=== PATIENT | female | born 1975 | race Caucasian/White ===

== ENCOUNTER → 2016-06-03 | Outpatient (CLI) | payer OTHER | LOC: M LAB 14:52 | PROVIDERS: ATTEND Obstetrics & Gynecology | DX: Z11.59 Encounter for screening for other viral diseases (principal) ==

== ENCOUNTER → 2016-06-03 | Outpatient (CLI) | payer OTHER ==
[2016-06-03 16:06] LABS: BASO % 0.3 % (0.0-1.0); EOS # 0.1 K/mm3 (0.0-0.50); EOS % 1.6 % (0.0-3.0); LARGE UNSTAINED CELL # 0.1 K/mm3 (0.0-0.4); LARGE UNSTAINED CELL % 1.5 % (0.0-4.0); LYMPH # 2.6 K/mm3 (1.5-4.5); MEAN CORPUSCULAR HEMOGLOBIN 29.9 pg (27.0-33.0); MEAN CORPUSCULAR HGB CONC 34.2 g/dl (32.0-36.5); MEAN CORPUSCULAR VOLUME 87.3 fl (80.0-96.0); MONO # 0.5 K/mm3 (0.0-0.8); MONO % 6.1 % (0.0-5.0); NEUTROPHILS % 60.5 % (36.0-66.0); PLATELET COUNT, AUTOMATED 152 k/mm3 (150-450); RED CELL DISTRIBUTION WIDTH 12.5 % (11.5-14.5); WHITE BLOOD COUNT 8.2 K/mm3 (4.0-10.0)
[2016-06-04 10:17] LABS: HBsAg Prenatal NEGATIVE (NEGATIVE)
== END ==
LOC: M LAB 15:09
PROVIDERS: ATTEND Specialist
DX: Z36 Encounter for antenatal screening of mother (principal)

== ENCOUNTER → 2016-06-30 | Outpatient (CLI) | payer OTHER | LOC: M SMT 12:19 | PROVIDERS: ATTEND Specialist | DX: Z36 Encounter for antenatal screening of mother (principal); Z13.79 Encounter for other screening for genetic and chromosomal anomalies ==

== ENCOUNTER → 2016-08-25 | Outpatient (CLI) | payer OTHER ==
[~2016-08-25] MED LIST: BIOT300T PO; FOLI800C PO; LAMI300T PO; PRENTAB9 PO
--- NOTE | 2016-08-25 16:56 | REP ---
Clinical: Anatomical evaluation. Comparison: None . Findings: Examination demonstrates a single live intrauterine in breech presentation. motion is identified by technologist. Placenta is noted posterior fundally and grade zero without evidence for placenta previa or abruption. Amniotic fluid volume is normal. Cervix measures 5.5 cm in length and appears closed. No evidence for nuchal cord. Gestational age by LMP 19 weeks 3 days with ALAN 01/16/2017 . Gestational age by current measurements 20 weeks 0 days with ALAN 01/12/2017 . FHR equals 131 beats per minute. BPD 4.6 cm 19 weeks 5 days HC 16.6 cm 19 weeks 2 days AC 15.1 cm 20 weeks 2 days FL 3.3 cm 20 weeks 2 days HL 3.1 cm 20 weeks 2 days HC/AC ratio 1.10 Estimated weight 339 grams ( 77th percentile). Anatomical assessment demonstrates normal structures including cranium, choroid plexus, cavum, cerebellum/posterior fossa, facial features, diaphragm, stomach, cord insertion/three-vessel cord, kidneys/bladder, spine, and extremities. Impression: Single live intrauterine in breech presentation demonstrating appropriate interval growth. Limited evaluation of the lungs and heart/ventricular outflow tracts may warrant reevaluation and follow-up. Remainder of the assessment is normal. Signed by Ruel Rothman MD 08/25/2016 04:47 P
== END ==
LOC: M RAD 15:53
PROVIDERS: ATTEND Specialist
DX: Z36 Encounter for antenatal screening of mother (principal); Z3A.20 20 weeks gestation of pregnancy

== ENCOUNTER → 2016-09-22 | Outpatient (CLI) | payer OTHER ==
--- NOTE | 2016-09-23 08:01 | REP ---
Clinical: Anatomical re-evaluation. Comparison: 08/25/2016 . Findings: Examination demonstrates a single live intrauterine in cephalic presentation. motion is identified by technologist. Placenta is noted posteriorly and grade zero without evidence for placenta previa or abruption. Amniotic fluid volume is normal. Cervix measures 6.6 cm in length and appears closed. No evidence for nuchal cord. Gestational age by LMP 23 weeks 3 day with ALAN date 01/16/2017 . Gestational age by current measurements 24 weeks 0 days with ALAN 01/12/2017 . FHR equals 146 beats per minute. Estimated weight 665 grams ( 67th percentile). Anatomical assessment demonstrates normal structures including cranium, choroid plexus, cavum, cerebellum/posterior fossa, facial features, lungs, four-chamber heart/ventricular outflow tracts, diaphragm, stomach, cord insertion/three-vessel cord, kidneys/bladder, spine, and extremities. Impression: Single live intrauterine in cephalic presentation demonstrating appropriate interval growth. Anatomical assessment is complete and normal. No gross abnormalities are identified. Incidental note is made of prominent chordae tendineae in the right cardiac ventricle. Signed by Ruel Rothman MD 09/23/2016 07:53 A
== END ==
LOC: M RAD 16:47
PROVIDERS: ATTEND Obstetrics & Gynecology
DX: Z36 Encounter for antenatal screening of mother (principal); Z3A.24 24 weeks gestation of pregnancy

== ENCOUNTER → 2016-10-22 | Outpatient (CLI) | payer OTHER ==
[2016-10-22 15:51] LABS: BASO % 0.2 % (0.0-1.0); EOS # 0.1 K/mm3 (0.0-0.50); EOS % 1.2 % (0.0-3.0); LARGE UNSTAINED CELL # 0.1 K/mm3 (0.0-0.4); LARGE UNSTAINED CELL % 1.4 % (0.0-4.0); LYMPH # 2.6 K/mm3 (1.5-4.5); LYMPH % 26.6 % (24.0-44.0); MEAN CORPUSCULAR HEMOGLOBIN 31.4 pg (27.0-33.0); MEAN CORPUSCULAR HGB CONC 34.7 g/dl (32.0-36.5); MEAN CORPUSCULAR VOLUME 90.4 fl (80.0-96.0); MONO # 0.5 K/mm3 (0.0-0.8); MONO % 5.3 % (0.0-5.0); NEUTROPHILS # 6.2 K/mm3 (1.8-7.7); NEUTROPHILS % 65.4 % (36.0-66.0); PLATELET COUNT, AUTOMATED 148 k/mm3 (150-450); RED CELL DISTRIBUTION WIDTH 13.7 % (11.5-14.5); WHITE BLOOD COUNT 9.4 K/mm3 (4.0-10.0)
== END ==
LOC: M WUC 12:20
PROVIDERS: ATTEND Specialist
DX: Z34.82 Encounter for supervision of other normal pregnancy, second trimester (principal)

== ENCOUNTER → 2016-11-16 | Outpatient (CLI) | payer OTHER ==
--- NOTE | 2016-11-17 06:24 | REP ---
Clinical: Growth evaluation. Comparison: 09/22/2016 . Findings: Examination demonstrates a single live intrauterine in cephalic presentation. motion is identified by technologist. Placenta is noted posteriorly and grade zero without evidence for placenta previa or abruption. Amniotic fluid volume is normal. Cervix measures 4.5 cm in length and appears closed. Nuchal cord appreciated. Gestational age by LMP 31 weeks 2-day with ALAN is 01/16/2017 . Gestational age by current measurements 31 weeks 5-day with ALAN 01/13/2017 . FHR equals 143 beats per minute. BPD 8.0 cm 31 weeks 6 days HC 28.3 cm 31 weeks 0 days AC 28.5 cm 32 weeks 4 days FL 6.1 cm 31 weeks 5 days HL 5.4 cm 31 weeks 3 days HC/AC ratio 0.99 Estimated weight 1903 grams ( 59th percentile). Amniotic fluid index equals 17.1 cm. Umbilical cord SD ratio equals 2.16 (2.50 - 3.50). Impression: 1. Single live intrauterine in cephalic presentation demonstrating appropriate interval growth. 2. Nuchal cord noted. 3. Umbilical cord SD ratio minimally decreased. Signed by Ruel Rothman MD 11/17/2016 06:16 A
== END ==
LOC: M RAD 16:14
PROVIDERS: ATTEND Specialist
DX: Z36 Encounter for antenatal screening of mother (principal)

== ENCOUNTER 2016-11-27 14:38 | Outpatient (CLI) | payer OTHER ==
[~2016-11-27] VITALS: Ht 160 cm; Wt 77.2 kg
[2016-11-27 14:57] VITALS: BP 95/58
[2016-11-27 15:13] VITALS: BP 93/59
[2016-11-27] MEDS ORDERED: PRENTAB9 PO (15:57)
[2016-11-27] MEDS ORDERED: FOLI800C PO (15:57)
[2016-11-27] MEDS ORDERED: LAMI300T PO (15:57)
[2016-11-27] MEDS ORDERED: BIOT300T PO (15:57)
== END 2016-11-27 15:47 | disposition home or self-care (01) ==
LOC: M LDO 14:38
PROVIDERS: ATTEND Specialist
DX: O36.8130 Decreased fetal movements, third trimester, not applicable or unspecified (principal); Z3A.32 32 weeks gestation of pregnancy

== ENCOUNTER 2017-01-09 20:37 | Inpatient (IN) | payer OTHER ==
[~2017-01-09] VITALS: Ht 160 cm; Wt 80.1 kg
[2017-01-09 20:59] VITALS: BP 102/63
[2017-01-09] MEDS ORDERED: LACTATED RINGER'S 1000 ML IV STA (21:39)
[2017-01-09 21:55] LABS: MEAN CORPUSCULAR HEMOGLOBIN 30.4 pg (27.0-33.0); MEAN CORPUSCULAR HGB CONC 33.9 g/dl (32.0-36.5); MEAN CORPUSCULAR VOLUME 89.6 fl (80.0-96.0); PLATELET COUNT, AUTOMATED 128 10^3/uL (150-450); RED CELL DISTRIBUTION WIDTH 13.9 % (11.5-14.5); WHITE BLOOD COUNT 8.3 10^3/uL (4.0-10.0)
[2017-01-09] MEDS: miSOPROStol 50 MCG 1/2 TAB (S0191) SL SCH (21:59)
[2017-01-09 22:00] VITALS: BP 102/65
[2017-01-09 22:59] VITALS: BP 110/72
[2017-01-10] VITALS (59 sets, daily range): BP systolic 78–136; BP diastolic 45–82
[2017-01-10] MEDS: miSOPROStol 50 MCG 1/2 TAB (S0191) SL SCH (02:13)
[2017-01-10] MEDS ORDERED: LR 1,000 ML IV SCH ×2 (06:08→23:15)
[2017-01-10] MEDS ORDERED: OXYTOCIN DRIP 30 UNITS in APPROPRIATE DILUENT 1 EA IV SCH (06:15)
[2017-01-10] MEDS ORDERED: FENTANYL 2MCG/ML ROPIVACAINE 0.2% IN 0.9% NACL 200ML IVBAG As Ordered ONE (10:57)
[2017-01-10] MEDS ORDERED: EPIDURAL COMMENT XX SCH (12:00)
[2017-01-10] MEDS ORDERED: REFRIGERATOR IV KEYS XX PRN (12:00)
[2017-01-10] MEDS ORDERED: ePHEDrine SULFATE 25 MG/5 ML(5MG/ML) SYRINGE IV PRN (12:00)
[2017-01-10] MEDS ORDERED: diphenhydrAMINE INJ 50MG/ML VIAL (J1200) IV PRN ×2 (12:00→23:15)
[2017-01-10] MEDS ORDERED: NALOXONE INJ 0.4 MG/1 ML VIAL (J2310) IV PRN ×3 (12:00→18:10)
[2017-01-10] MEDS ORDERED: EPIDURAL/PCA KEYS XX PRN (12:00)
[2017-01-10] MEDS ORDERED: FENTANYL/ROPIVACAINE/NACL BAG 200 ML EPIDURAL SCH (12:00)
[2017-01-10] MEDS ORDERED: LACTATED RINGER'S 1000 ML IV PRN (12:00)
[2017-01-10] MEDS ORDERED: ONDANSETRON 4MG/2ML VIAL (J2405) IV PRN ×3 (12:00→23:15)
[2017-01-10] MEDS ORDERED: TERBUTALINE SULFATE 1 MG/ML VIAL (J3105) As Ordered ONE (17:13)
[2017-01-10] MEDS ORDERED: BICITRA 30ML SOLN UDC As Ordered ONE (17:25)
[2017-01-10] MEDS ORDERED: ceFAZolin 2 GM/D5W 50 ML IV BAG (J0690) As Ordered ONE ×2 (17:25→21:15)
[2017-01-10] MEDS ORDERED: SODIUM BICARBONATE 8.4% INJ 50MEQ 50 ML VIAL As Ordered ONE (17:55)
[2017-01-10] MEDS ORDERED: KETOROLAC 60 MG/2 ML VIAL (J1885) As Ordered ONE (17:55)
[2017-01-10] MEDS ORDERED: ONDANSETRON 4MG/2ML VIAL (J2405) As Ordered ONE (17:55)
[2017-01-10] MEDS ORDERED: MIDAZOLAM INJ 2 MG/2 ML VIAL (J2250) As Ordered ONE (17:55)
[2017-01-10] MEDS ORDERED: dexameTHASONE 4 MG/ML 1ML VIAL (J1100) As Ordered ONE (17:55)
[2017-01-10] MEDS ORDERED: OXYTOCIN INJ 10 UNITS/ML VIAL (J2590) As Ordered ONE (17:55)
[2017-01-10] MEDS ORDERED: METOCLOPRAMIDE INJ 10MG/2ML VIAL (J2765) As Ordered ONE (17:55)
[2017-01-10] MEDS ORDERED: LIDOCAINE 2% W/EPIN INJ 20ML **PRES FREE As Ordered ONE (17:55)
[2017-01-10] MEDS ORDERED: PHENYLephrine HCL 500 MCG/5 ML (100MCG/ML) SYRINGE (J2370) As Ordered ONE (17:55)
[2017-01-10 18:03] LABS: CORD GAS ABE A -14.3; CORD GAS ABE V -14.6; CORD GAS HCO3 V 19.5 MEQ/L; CORD GAS O2 SAT A 18.6 %; CORD GAS O2 SAT V 31.1 %; CORD GAS PCO2 A 102.4 mmHg; CORD GAS PCO2 V 88.3 mmHg; CORD GAS PO2 A 17.9 mmHg; CORD GAS PO2 V 23.8 mmHg; CORD GAS SBC A 12.3 MEQ/L; CORD GAS SBC V 12.4 MEQ/L; CORD GAS TCO2 A 24.1 MEQ/L; CORD GAS TCO2 V 22.3 MEQ/L
[2017-01-10 18:06] LABS: CORD GAS PH V 6.963 UNITS
[2017-01-10 18:07] LABS: CORD GAS PH A 6.929 UNITS
[2017-01-10] MEDS ORDERED: NALBUPHINE HCL 10 MG/ML AMP (J2300) IV PRN ×2 (18:10→23:15)
[2017-01-10] MEDS ORDERED: METOCLOPRAMIDE INJ 10MG/2ML VIAL (J2765) IV PRN (18:10)
[2017-01-10 19:15] LABS: PLATELET COUNT, AUTOMATED 94 10^3/uL (150-450)
[2017-01-10 19:16] LABS: IMMATURE PLATELET FRACTION % 8.1 % (0.0-9.6)
--- NOTE | 2017-01-10 19:57 | HPE ---
DATE OF ADMISSION: 01/09/2017 HISTORY: A 41-year-old 6, para 3 female at 39 and 0/7 weeks gestation by last menstrual period (LMP) consistent with nine-week ultrasound, estimated date of confinement (EDC) 01/16/2017, who presents for induction of labor. She has occasional contractions. She denies vaginal bleeding. COURSE: The patient initiated care at eight weeks gestation on 06/10/2016. Her blood pressure was 110/68, weight 143. She had an episode during of double vision of undiagnosed cause. 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 She has history of seizure disorder and takes Lamictal. She had Spencer testing during which was normal. MEDICAL HISTORY: Seizure disorder. The patient currently takes Lamictal. SURGICAL HISTORY: 1. Right ankle surgery December 2010. 2. Dilation and curettage procedure times one. ALLERGIES: None. SOCIAL HISTORY: The patient is . She denies cigarettes, alcohol or drug use during . FAMILY HISTORY: Noncontributory. PHYSICAL EXAMINATION: VITAL SIGNS: Blood pressure 110/68, weight 175. GENERAL: She is in no apparent distress. HEAD/NECK: Normal. LUNGS: Clear. HEART: Regular rate and rhythm. ABDOMEN: Nontender and gravid. heart tones category one. STERILE VAGINAL EXAM: 1 cm, 80% effaced, -2 station. Vertex, firm. EXTREMITIES: Nontender. Contractions irregular. LABORATORY DATA: Blood type A positive. Rubella immune. RPR nonreactive. Hepatitis B and C negative. Diabetes screen 134. GBS negative 12/22/2016. ASSESSMENT: A 41-year-old 6, para 3 female at 39 and 0/7 weeks gestation presents for labor induction. Patient is admitted on 01/09/2017. Risks of induction are discussed.
[2017-01-10 20:13] LABS: ABG BASE EXCESS -9.8 (-2.0-2.0); ABG HCO3 18.3 MEQ/L (22.0-26.0); ABG PARTIAL PRESSURE CO2 52.5 mmHg (35.0-45.0); ABG PARTIAL PRESSURE O2 150.4 mmHg (75.0-100.0); ABG STANDARD HCO3 16.5 MEQ/L (22.0-26.0); ABG TOTAL CO2 19.9 MEQ/L (22.0-29.0)
[2017-01-10 20:14] LABS: MEAN CORPUSCULAR HGB CONC 33.5 g/dl (32.0-36.5); MEAN CORPUSCULAR VOLUME 92.6 fl (80.0-96.0); PLATELET COUNT, AUTOMATED 136 10^3/uL (150-450); RED CELL DISTRIBUTION WIDTH 13.4 % (11.5-14.5); WHITE BLOOD COUNT 22.4 10^3/uL (4.0-10.0)
[2017-01-10 20:16] LABS: ABG pH (ARTERIAL) 7.161 UNITS (7.350-7.450)
[2017-01-10 20:43] LABS: INR 2.82
[2017-01-10] MEDS ORDERED: fentaNYL 100 MCG/2 ML INJECTION (J3010) As Ordered ONE (20:58)
[2017-01-10] MEDS ORDERED: VASOPRESSIN INJ 20 UNITS/ML VIAL As Ordered ONE (20:58)
[2017-01-10] MEDS ORDERED: MEPERIDINE 50 MG/ML 1ML VIAL (J2175) As Ordered ONE (20:58)
[2017-01-10] MEDS ORDERED: SODIUM BICARBONATE 8.4% INJ 50 ML SYRINGE As Ordered ONE (20:58)
[2017-01-10] MEDS ORDERED: MORPHINE PRES-FREE INJ 10 MG/10 ML VIAL (J2274) As Ordered ONE (20:58)
[2017-01-10] MEDS ORDERED: lamoTRIgine 100MG TAB PO SCH (21:00)
[2017-01-10 21:20] LABS: MEAN CORPUSCULAR HEMOGLOBIN 29.4 pg (27.0-33.0); MEAN CORPUSCULAR HGB CONC 32.7 g/dl (32.0-36.5); RED CELL DISTRIBUTION WIDTH 13.9 % (11.5-14.5); WHITE BLOOD COUNT 17.5 10^3/uL (4.0-10.0)
[2017-01-10 21:21] LABS: ABG BASE EXCESS -4.4 (-2.0-2.0); ABG HCO3 20.9 MEQ/L (22.0-26.0); ABG PARTIAL PRESSURE O2 159.3 mmHg (75.0-100.0); ABG STANDARD HCO3 20.9 MEQ/L (22.0-26.0); ABG TOTAL CO2 22.1 MEQ/L (22.0-29.0); ABG pH (ARTERIAL) 7.347 UNITS (7.350-7.450); ADD MANUAL DIFFER YES; LEFT SHIFT POS FLAG; PLATELET COUNT, AUTOMATED 94 10^3/uL (150-450); POSITIVE MORPH POS FLAG
[2017-01-10 21:22] LABS: DIFF SLIDE NUMBER 370
[2017-01-10 21:27] LABS: IMMATURE PLATELET FRACTION % 7.9 % (0.0-9.6)
[2017-01-10 21:30] LABS: INR 1.73
[2017-01-10 21:39] LABS: FIBRINOGEN > 700 MG/DL (221-452)
[2017-01-10 21:48] LABS: BANDS 16 % (< 11)
[2017-01-10 21:56] LABS: CALCIUM LEVEL 8.1 MG/DL (8.5-10.1)
[2017-01-10 22:12] LABS: ALBUMIN 1.9 GM/DL (3.2-5.2); ALBUMIN/GLOBULIN RATIO 1.19 (1.00-1.93); ALKALINE PHOSPHATASE 48 U/L (45-117); ALT/SGPT 18 U/L (12-78); ANION GAP 10 MEQ/L (8-16); AST/SGOT 32 U/L (7-37); BILIRUBIN,TOTAL 2.1 MG/DL (0.2-1.0); BLOOD UREA NITROGEN 10 MG/DL (7-18); CARBON DIOXIDE LEVEL 24 MEQ/L (21-32); CHLORIDE LEVEL 109 MEQ/L (98-107); CREATININE FOR GFR 0.98 MG/DL (0.55-1.02); GLOMERULAR FILTRATION RATE > 60.0 (>58); GLUCOSE, FASTING 166 MG/DL (70-105); POTASSIUM SERUM 4.8 MEQ/L (3.5-5.1); SODIUM LEVEL 143 MEQ/L (136-145); TOTAL PROTEIN 3.5 GM/DL (6.4-8.2)
[2017-01-10] MEDS ORDERED: PROPOFOL 1,000 MG/100 ML VIAL As Ordered ONE (22:42)
[2017-01-10] MEDS ORDERED: MORPHINE 4 MG/ML 1ML SYRINGE IV PRN (22:45)
[2017-01-10] MEDS ORDERED: PROPOFOL 1,000 MG in APPROPRIATE DILUENT 1 EA IV SCH (22:45)
[2017-01-10] MEDS ORDERED: MORPHINE 2 MG/ML 1ML SYRINGE IV PRN (23:15)
[2017-01-10] MEDS ORDERED: fentaNYL 100 MCG/2 ML INJECTION (J3010) IV PRN (23:15)
[2017-01-10] MEDS: LR 1,000 ML IV SCH (23:38)
[2017-01-10 23:45] LABS: ABG HCO3 26.9 MEQ/L (22.0-26.0); ABG PARTIAL PRESSURE CO2 43.5 mmHg (35.0-45.0); ABG PARTIAL PRESSURE O2 208.8 mmHg (75.0-100.0); ABG STANDARD HCO3 26.3 MEQ/L (22.0-26.0); ABG TOTAL CO2 28.2 MEQ/L (22.0-29.0); ABG pH (ARTERIAL) 7.409 UNITS (7.350-7.450)
--- NOTE | 2017-01-10 23:50 | CCN ---
DATE: 01/10/2017 START TIME: 2220 hours STOP TIME: 2311 hours I attended Elle Huang on her arrival here in the intensive care unit. I have spoken at length with Dr. Cruz of anesthesia and Dr. Villalobos from obstetrics. In essence, this is a 41-year-old female with a history of a seizure disorder, although she has been seizure-free for years, controlled mainly on Lamictal. She presented with term . Due to distress, she was taken emergently for a section. Intraoperatively, she had a massive amount of bleeding, estimated blood loss felt to be about 2 liters. Baby was delivered initially and is doing well. Due to the above, however, she received massive transfusion with 6 units of packed red blood cells, 12 pack of platelets, 4 units fresh frozen plasma, 6 liters of crystalloid and 500 mL of colloid. She did receive a hysterectomy. She did require vasopressors at one point during the procedure, but these were able to be weaned prior to the termination of her procedure. She was not making significant amounts of urine. Prior to closing, repeat laboratories were done. White blood cell count 17.5, hemoglobin 8.5, platelet count 94,000, 69% segmented neutrophils, 16% bands. Sodium 143, potassium 4.8, chloride 109, CO2 24, BUN 10, creatinine 0.98, albumin 1.9. A blood gas, again prior to closure, had a pH of 7.347, pCO2 of 39, pO2 of 159.3, saturation 99%. Of interest is a blood gas recorded this morning at 8 o'clock with a pH of 7.161, pCO2 of 52.5 and a pO2 of 150.4. On arrival here to the intensive care unit, she is intubated, mechanically ventilated and sedated. Heart rate between 100 and 110 with a sinus mechanism, blood pressure 104 to 112 systolic. She currently does not over breathe the ventilator. No accessory muscle use. Pupils do react. Sclerae clear. Oral endotracheal tube is in place. Trachea is in the midline. She has a bite block in place. Chest shows symmetric expansion. There are some rhonchi. No convincing crackles or wheezes. Cardiac exam is mildly tachycardic but regular. Peripheral pulses palpable, diffuse trace edema. Abdomen is distended. There is a drain in place. There is bloody drainage noted in the drain itself. Extremities show no cyanosis or clubbing. Neurologically she is sedate. The most pressing problems requiring my presence at the bedside: 1. Respiratory failure requiring mechanical ventilatory support. 2. Significant blood loss requiring replacement transfusion. 3. Underlying seizure disorder. At this point, we will repeat her blood gas. Intravenous (IV) fluids and pain control written by obstetrics. We will assure adequate sedation. We will place an orogastric (OG) tube for stomach decompression as well as dosing of her seizure medications. Reportedly takes Lamictal, which had to be increased during her due to low serum levels. She normally takes the sustained release preparation at home, but this cannot be crushed for her OG tube administration, so will use a standard dose of 100 twice a day. I do expect her to undergo some fluid shifts, but hopefully she can still be extubated within the next 24-48 hours. I spoke at length with her at the bedside. Any prophylactic antibiotics as well as ulcer and deep vein thrombosis (DVT) prophylaxis have been ordered through the primary service. At this point, she is critically ill. I left the bedside at 2311 hours. 51 minutes of critical care time delivered at the bedside not including procedures.
[2017-01-10] MEDS: lamoTRIgine 100MG TAB GT SCH (23:56)
[2017-01-11] VITALS (54 sets, daily range): BP systolic 66–121; BP diastolic 18–115; O2SAT 100
[2017-01-11] MEDS: MIDAZOLAM INJ 2 MG/2 ML VIAL (J2250) IV PRN ×6 (00:32→13:24)
[2017-01-11] MEDS ORDERED: NS 500 ML IV ONE ×2 (00:45→01:15)
[2017-01-11 01:15] LABS: INR 1.47
[2017-01-11 04:19] LABS: MEAN CORPUSCULAR HEMOGLOBIN 29.6 pg (27.0-33.0); MEAN CORPUSCULAR HGB CONC 34.6 g/dl (32.0-36.5); MEAN CORPUSCULAR VOLUME 85.5 fl (80.0-96.0); WHITE BLOOD COUNT 12.8 10^3/uL (4.0-10.0)
[2017-01-11 04:21] LABS: PLATELET COUNT, AUTOMATED 98 10^3/uL (150-450)
[2017-01-11] MEDS ORDERED: NS 1,000 ML IV SCH (04:24)
[2017-01-11 04:36] LABS: INR 1.34
[2017-01-11 04:43] LABS: ALBUMIN 1.7 GM/DL (3.2-5.2); ALBUMIN/GLOBULIN RATIO 1.06 (1.00-1.93); BILIRUBIN,TOTAL 1.1 MG/DL (0.2-1.0); CALCIUM LEVEL 7.1 MG/DL (8.5-10.1); CREATININE FOR GFR 1.41 MG/DL (0.55-1.02); GLOMERULAR FILTRATION RATE 43.3 (>58); PHOSPHORUS LEVEL 3.9 MG/DL (2.5-4.9); POTASSIUM SERUM 4.1 MEQ/L (3.5-5.1); TOTAL PROTEIN 3.3 GM/DL (6.4-8.2)
[2017-01-11 05:51] LABS: ABG BASE EXCESS -1.9 (-2.0-2.0); ABG HCO3 21.7 MEQ/L (22.0-26.0); ABG PARTIAL PRESSURE CO2 31.3 mmHg (35.0-45.0); ABG PARTIAL PRESSURE O2 159.3 mmHg (75.0-100.0); ABG STANDARD HCO3 22.8 MEQ/L (22.0-26.0); ABG TOTAL CO2 22.7 MEQ/L (22.0-29.0); ABG pH (ARTERIAL) 7.459 UNITS (7.350-7.450)
[2017-01-11] MEDS: CEFAZOLIN SOD 1 GM in APPROPRIATE DILUENT 1 EA IV SCH ×2 (06:19→12:27)
[2017-01-11] MEDS: LR 1,000 ML IV SCH ×2 (07:40→15:25)
--- NOTE | 2017-01-11 07:52 | REP ---
Clinical: Emergent delivery. Technique: Portable intraoperative radiograph of the abdomen and pelvis. Findings: Epidural catheter is identified along with pelvic drainage catheter. No further foreign body material is identified. The bowel gas pattern is nonspecific. The skeletal structures are intact. Impression: No significant foreign body material appreciated. Nonspecific bowel gas pattern. Signed by Ruel Rothman MD 01/11/2017 07:44 A
[2017-01-11] MEDS: ALBUTEROL SULFATE 2.5 MG/0.5 ML INH NEB SOLN NEB SCH ×2 (08:00→11:42)
--- NOTE | 2017-01-11 08:02 | REP ---
Clinical: Status post intubation. Comparison: None. Findings: Endotracheal tube is approximately 2.5 cm above the olivia. Epidural catheter is appreciated. Mediastinum and cardiac silhouette are normal. Lung kang demonstrate suspected infrahilar and left lower lobe atelectasis. No obvious effusion. No pneumothorax. Skeletal structures are intact. Impression: ETT 2.5 cm above the olivia. Trace basilar atelectasis. Signed by Ruel Rothman MD 01/11/2017 07:53 A
--- NOTE | 2017-01-11 08:27 | REP ---
Clinical: Status post intubation. Comparison: 01/10/2017. Findings: Endotracheal tube approximately 3 cm above the olivia. Nasogastric tube courses below left hemidiaphragm in satisfactory position. Mediastinum and cardiac silhouette are stable and within normal limits. Lung kang demonstrate prominent pulmonary vasculature and increased interstitial markings which may be secondary to technique versus mild pulmonary vascular congestion. No focal consolidation, effusion, or pneumothorax. Skeletal structures intact. Impression: 1. Lines and tubes in satisfactory position. 2. Cannot exclude mild pulmonary vascular congestion. Signed by Ruel Rothman MD 01/11/2017 08:19 A
[2017-01-11] MEDS ORDERED: ADACEL/BOOSTRIX VACCINE (DIPHTH/PERTUSS/ACELL/TETANUS)0.5ML SYR (90715) IM ONE (09:00)
[2017-01-11] MEDS: lamoTRIgine 100MG TAB GT SCH ×2 (09:11→21:42)
[2017-01-11] MEDS: PANTOPRAZOLE 40MG INJ (PROTONIX) (C9113) IV SCH (09:12)
--- NOTE | 2017-01-11 09:31 | RO ---
DATE OF PROCEDURE: 01/10/2017 PREPROCEDURE DIAGNOSES: 39 week gestation, bradycardia, labor. POSTPROCEDURE DIAGNOSES: 39 week gestation, bradycardia, occult uterine rupture, subsequent disseminated intravascular coagulation (DIC) and hemorrhage. PROCEDURE: Primary low transverse section, subtotal hysterectomy, left salpingo-oophorectomy. SURGEON: Dr. Joshua Villalobos RESEARCH NUTRITIONIST: Dr. Jerry Mcdaniels and Dr. Nghia Beltre. ANESTHESIA: Epidural converted to general. ESTIMATED BLOOD LOSS: 2000 mL. URINE OUTPUT: 175 mL. FLUIDS: 6000 mL crystalloid, 6 units packed red blood cells, 4 units of fresh frozen plasma, 2 units platelets, 500 mL of albumin. FINDINGS: 6 pounds 11 ounces or 3040 gram female with loose nuchal cord times one. Arterial cord blood gas 6.93, base excess -14.3, venous blood gas 6.96, base excess -14.6. 5-6 cm rupture left lateral lower uterine segment down to the level of the cervix. Normal appearing uterus and fallopian tubes and ovaries otherwise. DESCRIPTION OF PROCEDURE: The patient was taken emergently to the operating room where a splash prep with Betadine was performed. The patient ws draped. Epidural anesthesia was adequate. A Pfannenstiel skin incision was created with the scalpel and carried through to the fascia. The rectus muscle divided in the midline and the peritoneal cavity was entered. A curvilinear incision was made in the lower uterine segment. Immediate gush of bloody fluid occurred from the uterus. The was delivered in the vertex position without difficulty and the cord was doubly clamped and cut. The was handed off to the awaiting nurses. Neonatology had been contacted. The placenta was expressed. There was no evidence of placental abruption. The uterine incision was closed with 0 Vicryl in a running locked fashion. A second imbricating layer of 0 Vicryl was placed. There was continued bleeding from the hysterotomy site. Multiple sutures were placed to try to obtain hemostasis. More bleeding appeared to be occurring from the left side of the hysterotomy incision. The patient was noted to have significant uterine atony. She received IV Pitocin which was started immediately after delivery of the placenta. She received two doses of intramuscular Methergine and one dose of intramuscular Hemabate. There was no response to the bleeding or tone of the uterus. Due to bleeding from the left side of the incision, the left round ligament was incised and suture ligated. A window was created in the broad ligament and the uterine ovarian ligament was clamped, incised, suture ligated. Upon dissecting down the left side of the uterus, there was noted to be a occult uterine rupture of the left lower uterine segment that was distinctly separate from the hysterotomy incision. This was actively bleeding. Due to continued bleeding with extensive uterine rupture, the decision was made to proceed with hysterectomy. This was an option that had been already considered and in the planning stages. The right round ligament was incised, suture ligated and the right infundibulopelvic (IP) ligament and broad ligament window was created. The right IP ligament was clamped, incised and suture ligated. The uterine vessels were clamped below the level of the hysterotomy incision with Lucinda clamps. This was incised, suture ligated. A scalpel was used to incise the uterus. The cervical stump was closed with 0 Vicryl in a running locked fashion. A second imbricating layer of 0 Vicryl was placed. At this point, the patient was noted to be bleeding from multiple sites and was considered to be in DIC. Bleeding from the left IP ligament was encountered. The left IP ligament was cross-clamped, incised and suture ligated. Multiple sutures were placed. Care was taken to suture ligate anything that appeared to be significant. Blood products as listed above were rapidly obtained. Multiple laparotomy pads were packed into the pelvis to apply compression to any bleeding sites to allow time for blood products and coagulating factors to work. The next 2 to 2-1/2 hours were spent with the abdomen packed. At intervals, the packs were removed and bleeding was assessed. Several more areas that were bleeding were suture ligated. More blood clotting factors were instituted. The bleeding in the pelvis became less. A Shaka-Etienne (CAMRYN) drain was placed. The decision was made to close the abdomen. All sponges and instruments were removed. The peritoneum was re-approximate with #2-0 Vicryl. The fascia was closed with 0 Vicryl in a running fashion. The deep layer was closed with #3-0 chromic, the skin was closed with #4-0 Monocryl subcuticular sutures. An x-ray was obtained at the end of the procedure. There was no evidence of retained instruments or sponges. Sponge counts and needle counts were correct. Instrument count was off by one instrument, which was a hemostat, however, an x-ray had been performed and there was no evidence of retained instruments. The patient remained intubated. She was transferred to a bed and taken immediately to the intensive care unit.
[2017-01-11 15:05] LABS: ABG BASE EXCESS -0.1 (-2.0-2.0); ABG HCO3 19.8 MEQ/L (22.0-26.0); ABG PARTIAL PRESSURE O2 147.6 mmHg (75.0-100.0); ABG STANDARD HCO3 24.5 MEQ/L (22.0-26.0); ABG TOTAL CO2 20.4 MEQ/L (22.0-29.0)
[2017-01-11 15:53] LABS: INR 1.2
[2017-01-11 16:13] LABS: GLOMERULAR FILTRATION RATE 22.1 (>58)
[2017-01-11 16:29] LABS: CREATININE FOR GFR 2.53 MG/DL (0.55-1.02)
[2017-01-11 17:16] LABS: CALCIUM LEVEL 7.2 MG/DL (8.5-10.1); CREATININE FOR GFR 2.62 MG/DL (0.55-1.02); GLOMERULAR FILTRATION RATE 21.2 (>58); POTASSIUM SERUM 4.4 MEQ/L (3.5-5.1)
[2017-01-11] MEDS ORDERED: D5W 1,000 ML IV SCH (18:00)
[2017-01-11] MEDS ORDERED: METOCLOPRAMIDE INJ 10MG/2ML VIAL (J2765) IV PRN (18:00)
[2017-01-11] MEDS: PERCOCET 5MG/325MG TAB PO PRN ×2 (19:35→20:05)
[2017-01-11] MEDS ORDERED: METHYLERGONOVINE MALEATE 0.2 MG/ML VIAL (J2210) As Ordered ONE ×2 (19:41→19:42)
[2017-01-11] MEDS ORDERED: CARBOPROST TROMETHAMINE 250 MCG/ML AMP As Ordered ONE (19:41)
[2017-01-12] VITALS (14 sets, daily range): BP systolic 84–115; BP diastolic 50–76
[2017-01-12] MEDS: PERCOCET 5MG/325MG TAB PO PRN ×4 (04:12→19:31)
[2017-01-12 05:19] LABS: BASO % 0.2 % (0.0-1.0); EOS # 0.1 10^3/uL (0.0-0.50); EOS % 0.9 % (0.0-3.0); IMMATURE GRANULOCYTE % 0.5 % (0-0); LYMPH # 1.5 10^3/uL (1.5-4.5); LYMPH % 14.8 % (24.0-44.0); MEAN CORPUSCULAR HEMOGLOBIN 30.2 pg (27.0-33.0); MEAN CORPUSCULAR HGB CONC 34.6 g/dl (32.0-36.5); MEAN CORPUSCULAR VOLUME 87.3 fl (80.0-96.0); MONO # 0.7 10^3/uL (0.0-0.8); MONO % 6.8 % (0.0-5.0); NEUTROPHILS # 7.6 10^3/uL (1.8-7.7); NEUTROPHILS % 76.8 % (36.0-66.0); RED CELL DISTRIBUTION WIDTH 14.9 % (11.5-14.5); WHITE BLOOD COUNT 9.9 10^3/uL (4.0-10.0)
[2017-01-12 05:21] LABS: PLATELET COUNT, AUTOMATED 70 10^3/uL (150-450)
[2017-01-12 05:23] LABS: IMMATURE PLATELET FRACTION % 6.4 % (0.0-9.6)
--- NOTE | 2017-01-12 05:39 | CR ---
DATE OF CONSULTATION: 01/11/2017 REFERRING PHYSICIAN: Dr. Villalobos. REASON FOR CONSULTATION: Management of acute oliguric renal failure. CHIEF COMPLAINT: The patient was transferred to intensive care unit (ICU) today after emergent section secondary to bradycardia. She was found to have uterine rupture after section with subsequent disseminated intravascular coagulation. She required multiple blood transfusions, and she is currently in the ICU. HISTORY OF PRESENT ILLNESS: Elle Huang is a 41-year-old female with past medical history of seizure disorder. No history of renal disease in the past. She is 6, para 3. She was at 39 weeks of gestation. She was admitted for induction of labor. After the induction of labor, the patient was found to have bradycardia. She was taken to the operating room (OR) for emergent section. After the delivery of the baby, she was found to have continuous uterine bleeding from the left side. Later on, exploration showed that she had rupture of the uterus. Emergency subtotal hysterectomy was done along with left salpingo-oophorectomy. The patient was found to have bleeding from multiple sites during the surgery. She was found to be in disseminated intravascular coagulation (DIC). She required multiple transfusions including six liters of fresh blood, six units of packed red blood cells (PRBCs), four units of fresh frozen plasma (FFP), two units of platelets, 500 mL of albumin, and after the procedure, the patient was brought to ICU. When I saw the patient, she was already intubated. The patient was found to be oliguric after the procedure with a rising creatinine of 2.53. Nephrology service was called for further help in the management of acute renal failure. I saw the patient in the ICU. She was awake and alert. Her was also present at the bedside. She is hemodynamically stable, currently not requiring any pressors, and she was getting Ringer's lactate intravenous (IV) fluid. PAST MEDICAL HISTORY: Seizure disorder. PAST SURGICAL HISTORY: The patient has a history of right ankle surgery about six years ago, and a history of dilation and curettage (D and C) in the past. ALLERGIES: No known drug allergies. FAMILY HISTORY: No significant family history of end-stage renal disease requiring hemodialysis. SOCIAL HISTORY: The patient is . She denies any illicit drug abuse, smoking or alcohol abuse. REVIEW OF SYSTEMS: CONSTITUTIONAL: The patient reports feeling weak and tired. EYES: She denies any blurry vision or double vision. ENT: She denies any ear discharge or any nasal discharge. CARDIOVASCULAR: She denies any chest pain or palpitations. RESPIRATORY: She denies any shortness of breath, wheezing or cough. GASTROINTESTINAL: She reports abdominal pain. GENITOURINARY: The patient has an indwelling Peterson at this time. MUSCULOSKELETAL: She denies any muscle aches and pains. CENTRAL NERVOUS SYSTEM (SMOKE CHASER): She reports history of seizures, but she denies any weakness at this time. PSYCHIATRIC: She denies any history of anxiety or depression. ENDOCRINE: There is no history of diabetes or thyroid issues. HEMATOLOGY/ONCOLOGY: The patient was in DIC, and required multiple transfusions. All other review of systems is negative. PHYSICAL EXAMINATION: GENERAL: The patient is awake, alert, and oriented times three, lying in bed, mild painful distress. VITAL SIGNS: Temperature is 100.5 degrees Fahrenheit, blood pressure is 104/64, pulse is 101, respiratory rate of 20, saturating 100% on nasal cannula at two liters. INTAKE AND OUTPUT: Urine output recorded after the surgery is only about 10 mL an hour. HEAD/NECK: Extraocular muscles intact. Pupils equal, round, and reactive to light. Mucous membranes are moist. Neck is supple. There is no jugular venous distention (JVD). CARDIOVASCULAR: S1, S2 tachycardia. No murmur, rub, or gallop. The patient has trace edema of the bilateral upper extremities and trace edema of the bilateral lower extremities. RESPIRATORY: Chest is clear to auscultation bilaterally, bilateral equal air entry. No rales or rhonchi. ABDOMEN: Soft, moderately tender at the surgical site from recent section and hysterectomy. Diminished bowel sounds. MUSCULOSKELETAL: No clubbing or cyanosis. Pulses are 2+. There is trace of all extremities because of recent extensive infusion of crystalloids and blood products. CENTRAL NERVOUS SYSTEM (SMOKE CHASER): No focal deficits. Power is 5/5 in bilateral upper extremities. LYMPHATIC: No significant cervical, axillary or inguinal lymphadenopathy. GENITOURINARY: The patient has an indwelling Peterson catheter, and there is very minimal amount of urine in the bag. LABORATORY DATA: CBC showed a WBC of 12.8, hemoglobin is eight now. The patient has an INR of 1.2, PT is 15.4. BMP showed sodium 142, potassium 4.4, chloride 111, bicarbonate 20, BUN 24, creatinine 2.6, calcium 7.2. Albumin is 1.7. IMAGING: Chest x-ray while the patient was intubated showed mild pulmonary vascular congestion. Renal ultrasound is pending. CURRENT INPATIENT MEDICATIONS: The patient's medications were all reviewed by me. Cefazolin dose was decreased to 1 gram IV daily because of oliguric renal failure. Ringer's lactate was stopped, and I started the patient on dextrose 5% in water (D5W) at 40 mL an hour. She is on: - Lamictal 100 mg twice a day - Zofran as needed - oxycodone as needed - Protonix 40 mg IV daily ASSESSMENT: A 41-year-old female with history of seizure disorder, status post emergent section which was complicated by disseminated intravascular coagulation (DIC), uterine rupture requiring partial hysterectomy, and now patient has developed acute oliguric renal failure. PLAN: 1. Acute oliguric renal failure: The patient went into renal failure most likely secondary to hemorrhagic shock and hypotension requiring transfusion of multiple blood products and crystalloids. The patient is currently hemodynamically stable. She has a mild amount of edema. I have changed the IV fluid to D5W at 40 mL an hour only while the patient is nothing by mouth. When the patient starts eating, IV fluids will be stopped. Continue the Peterson catheter at this time. Continue to monitor intake and output. I am hopeful that acute tubular necrosis will improve because the patient is hemodynamically stable at this time. There is no urgent need of hemodialysis at this time. Electrolytes are within the acceptable range. Acid base status is acceptable. The patient will be monitored daily for any need to start hemodialysis procedure. No need of diuretic administration at this time. 2. Anemia secondary to hemorrhagic shock: The patient is getting serial complete blood count (CBC) monitoring. Latest hemoglobin is eight. Transfuse as needed for hemoglobin below eight. 3. Status post disseminated intravascular coagulation (DIC): The patient was on cefazolin 1 gram every eight hours. I have changed the IV antibiotic dose to 1 gram IV daily because of oliguric renal failure. Once the patient's renal function improves, antibiotic dose will be changed. 4. History of seizure disorder: Continue current dose of Lamictal 100 mg twice a day. 5. Status post emergent section and partial hysterectomy and left-sided salpingo-oophorectomy: Pain is optimized at this time. The patient is hemodynamically stable. Rest of the management is as per gynecology service. The plan of care was discussed with the patient and patient's at the bedside. Thank you for involving us in the care of this patient. We shall be happy to follow the patient along with you tomorrow morning.
[2017-01-12 06:10] LABS: BILIRUBIN,TOTAL 0.3 MG/DL (0.2-1.0); CREATININE FOR GFR 3.86 MG/DL (0.55-1.02); GLOMERULAR FILTRATION RATE 13.6 (>58); PHOSPHORUS LEVEL 4.9 MG/DL (2.5-4.9); POTASSIUM SERUM 4.2 MEQ/L (3.5-5.1)
[2017-01-12 06:11] LABS: ALBUMIN 1.6 GM/DL (3.2-5.2); ALBUMIN/GLOBULIN RATIO 0.84 (1.00-1.93); TOTAL PROTEIN 3.5 GM/DL (6.4-8.2)
--- NOTE | 2017-01-12 06:35 | CCN ---
DATE OF VISIT: 01/11/2017 START TIME: 1032 hours STOP TIME: 1113 hours Again attended Elle Huang here in the intensive care unit. Patient has been examined and chart reviewed. I have spoken at length with primary service as well as her . She had a drop in her pressure through the night with a decline in her hemoglobin to 5.5. She has now received an additional 3 units of packed red blood cells. I do not see a repeat hemoglobin ordered, so I have taken the liberty of doing so. She is beginning to make a little bit more urine. She is quite comfortable on the ventilator. Chest x-ray shows tube in good position. No significant edema. Orogastric (OG) tube in good position with better decompression of the stomach. Maximum temperature (Tmax) overnight 99.0. Blood pressure generally 90s to 106 with the lowest through the night of 66 before blood transfusion. Heart rate 80s to the 1-teens, currently 84 with a sinus mechanism. Respiratory rate currently 19-22 without accessory muscle use. Ins and outs reflect only her time in the intensive care unit (ICU), 4250 mL in and 3490 mL out by midnight last night. Since midnight, 2440 mL in with 685 mL out. Sodium 143, potassium 4.1, chloride 110, CO2 of 24, BUN 16, creatinine 1.41, glucose 148. White blood cell count 12.8. Hemoglobin as outlined above, and repeat will be pending for later this afternoon. Platelet count 98,000. Last set of coagulation studies done at 0400 hours had a PT/INR of 16.9 and 1.34. Most recent arterial blood gas done at 0538 hours on a PRVC mode rate of 12, tidal volume of 400, PEEP of 5, FiO2 of 30%. Has a pH of 7.459, pCO2 of 31.3, and pO2 of 159.3. Saturation 98.9%. On exam, she is awake, alert, and appropriate. Pupils are active. Sclerae clear. Trachea is midline. Chest is fairly clear to auscultation and percussion. Symmetric chest rise and no significant focal adventitious sounds are identified. Cardiac exam is regular. Abdomen shows her dressings and drains in place. Extremities with trace edema. Neurologically, she is awake, alert, and appropriate, moves all extremities well, and responds appropriately to questioning. Most pressing problems requiring my presence at bedside: 1. Respiratory alkalosis. 2. Respiratory failure secondary to hemorrhage. 3. Hemorrhage secondary to uterine rupture. 4. Status post hysterectomy. I spoke at length with the primary service as well as her . Had a long discussion with the patient regarding her status. She has had a significant amount of volume resuscitation but so far has not had a significant amount of fluid shift to the point where she has significant pulmonary changes. Given that fact, I have changed her to an SIMV mode with pressure support to compensate for her smaller caliber endotracheal tube. If she remains hemodynamically stable, we may still consider extubation later this evening. I will repeat an arterial blood gas (ABG) later this afternoon. We await a repeat blood count. She has not required vasopressors. We will proceed as outlined above. I left the bedside at 1113 hours. 41 minutes of critical care time delivered at the bedside, not including procedures.
--- NOTE | 2017-01-12 08:47 | REP ---
Clinical: Intubation. Comparison: 01/11/2017. Findings: Endotracheal tube and nasogastric tube have been removed. The mediastinum and cardiac silhouette are stable. Increased moderate bilateral perihilar and lower lobe infiltrates are now identified. No effusion. No pneumothorax. Skeletal structures are intact. Impression: 1. Status post extubation. 2. New moderate bilateral perihilar and lower lobe infiltrates. Signed by Ruel Rothman MD 01/12/2017 08:37 A
[2017-01-12] MEDS: CEFAZOLIN SOD 1 GM in APPROPRIATE DILUENT 1 EA IV SCH (10:41)
[2017-01-12] MEDS: PANTOPRAZOLE 40MG INJ (PROTONIX) (C9113) IV SCH (10:41)
[2017-01-12] MEDS: lamoTRIgine 100MG TAB GT SCH ×2 (10:42→21:00)
--- NOTE | 2017-01-12 10:57 | REP ---
Clinical: Acute renal failure. Technique: Diamond scale and color Doppler evaluation of the kidneys and renal vasculature using curved array transducer. Findings: The kidneys are essentially normal in contour size and echogenicity and reniform shape without hydronephrosis, nephrolithiasis, cystic or renal mass lesion. Right kidney measures 12.5 x 5.9 x 6.1 cm . Left kidney measures 11.7 x 5.2 x 5.9 cm . A trace amount of free fluid is identified along the lower pole right kidney which is nonspecific. Peterson catheter identified in collapsed bladder. Color Doppler evaluation of the renal vasculature demonstrates normal arterial wave patterns, velocities, renal aortic ratios, resistive indices and the acceleration time. No sonographic evidence for renal arterial stenosis noted. Renal vein is patent. Right Kidney: Peak arterial velocity: 45.6 cm/sec . Renal aortic ratio: 0.4 . Resistive indices: 0.67 - 0.74 . Acceleration times: 0.01 - 0.03 . Left kidney: Peak arterial velocity: 38.3 cm/sec . Renal aortic ratio: 0.4 . Resistive indices: 0.61 - 0.65 . Acceleration times: 0.02 - 0.03 . Impression: 1. Essentially normal renal ultrasound examination with normal Doppler interrogation and no evidence for renal arterial stenosis. 2. Small amount of free fluid along the lower pole of the right kidney is nonspecific. Signed by Ruel Rothman MD 01/12/2017 10:49 A
[2017-01-12] MEDS ORDERED: CALCIUM GLUCONATE 1,000 MG in D5W MINI-BAG PLUS 100 ML IV ONE (11:45)
[2017-01-12] MEDS: ONDANSETRON 4MG/2ML VIAL (J2405) IV PRN (14:17)
[2017-01-12] MEDS ORDERED: FIORICET TAB PO PRN ×2 (17:45)
[2017-01-12 18:56] LABS: MEAN CORPUSCULAR HEMOGLOBIN 30.5 pg (27.0-33.0); MEAN CORPUSCULAR HGB CONC 34.8 g/dl (32.0-36.5); MEAN CORPUSCULAR VOLUME 87.7 fl (80.0-96.0); RED CELL DISTRIBUTION WIDTH 14.7 % (11.5-14.5); WHITE BLOOD COUNT 13.3 10^3/uL (4.0-10.0)
[2017-01-12 18:57] LABS: PLATELET COUNT, AUTOMATED 74 10^3/uL (150-450)
[2017-01-12 19:03] LABS: IMMATURE PLATELET FRACTION % 7.2 % (0.0-9.6)
[2017-01-12] MEDS: LAMICTAL 300 MG PO SCH (21:28)
[2017-01-13] VITALS: BP 106/63
[2017-01-13] MEDS: PERCOCET 5MG/325MG TAB PO PRN ×5 (00:18→21:56)
[2017-01-13 04:00] VITALS: BP 108/61
[2017-01-13 05:09] LABS: BASO % 0.2 % (0.0-1.0); EOS # 0.1 10^3/uL (0.0-0.50); EOS % 0.9 % (0.0-3.0); IMMATURE GRANULOCYTE % 1.3 % (0-0); LYMPH # 1.7 10^3/uL (1.5-4.5); LYMPH % 13.1 % (24.0-44.0); MEAN CORPUSCULAR HEMOGLOBIN 30.3 pg (27.0-33.0); MEAN CORPUSCULAR HGB CONC 34.3 g/dl (32.0-36.5); MEAN CORPUSCULAR VOLUME 88.3 fl (80.0-96.0); MONO # 0.8 10^3/uL (0.0-0.8); MONO % 6.3 % (0.0-5.0); NEUTROPHILS # 10.1 10^3/uL (1.8-7.7); NEUTROPHILS % 78.2 % (36.0-66.0); RED CELL DISTRIBUTION WIDTH 14.6 % (11.5-14.5)
[2017-01-13 05:11] LABS: PLATELET COUNT, AUTOMATED 87 10^3/uL (150-450)
[2017-01-13 05:31] LABS: ALBUMIN 1.7 GM/DL (3.2-5.2); ALBUMIN/GLOBULIN RATIO 0.71 (1.00-1.93); ALKALINE PHOSPHATASE 63 U/L (45-117); ALT/SGPT < 6 U/L (12-78); ANION GAP 8 MEQ/L (8-16); AST/SGOT 44 U/L (7-37); BILIRUBIN,TOTAL 0.3 MG/DL (0.2-1.0); BLOOD UREA NITROGEN 37 MG/DL (7-18); CALCIUM LEVEL 7.4 MG/DL (8.5-10.1); CARBON DIOXIDE LEVEL 24 MEQ/L (21-32); CHLORIDE LEVEL 106 MEQ/L (98-107); CHOLESTEROL LEVEL 126 MG/DL (< 200); GLUCOSE, FASTING 94 MG/DL (70-105); PHOSPHORUS LEVEL 5.8 MG/DL (2.5-4.9); POTASSIUM SERUM 4.5 MEQ/L (3.5-5.1); SODIUM LEVEL 138 MEQ/L (136-145); TOTAL PROTEIN 4.1 GM/DL (6.4-8.2); TRIGLYCERIDES LEVEL 225 MG/DL (<150)
[2017-01-13 05:52] LABS: CREATININE FOR GFR 6.09 MG/DL (0.55-1.02)
[2017-01-13 08:04] VITALS: BP 117/72
[2017-01-13] MEDS: lamoTRIgine 100MG TAB GT SCH ×2 (09:00→21:00)
[2017-01-13] MEDS ORDERED: FUROSEMIDE 40 MG/4 ML VIAL (J1940) IV ONE (09:00)
--- NOTE | 2017-01-13 09:20 | REP ---
Clinical: Hypoxemia. Comparison: 01/12/2017. Findings: Mediastinum and cardiac silhouette are within normal limits and stable. Bilateral infiltrates (right greater than left) are relatively stable. No obvious effusion. No pneumothorax. Skeletal structures intact. Impression: Bibasilar infiltrates (right greater than left) stable. Signed by Ruel Rothman MD 01/13/2017 09:12 A
[2017-01-13] MEDS: PANTOPRAZOLE 40MG INJ (PROTONIX) (C9113) IV SCH (10:16)
[2017-01-13] MEDS: CEFAZOLIN SOD 1 GM in APPROPRIATE DILUENT 1 EA IV SCH (10:17)
--- NOTE | 2017-01-13 12:43 | IPN ---
DATE: 01/12/2017 SUBJECTIVE: Patient was seen and examined at the bedside today morning in the intensive care unit (ICU). Patient is hemodynamically stable. However, patient remains oliguric at this time. Her hemoglobin is still dropping and another unit packed red blood cells (PRBC) ordered to be transfused today. Patient is still on gentle intravenous (IV) hydration. She has not started eating at this time. REVIEW OF SYSTEMS: Patient denies any fever, chills, rigors. She denies any chest pain, shortness of breath. She does report pain in abdomen at the surgical site. She denies any nausea or vomiting. Rest of review of system is negative. OBJECTIVE: VITAL SIGNS: Temperature was 99.6 degrees Fahrenheit. Blood pressure 111/73. Pulse is 107. Respiratory rate of 18. Saturating 95% on room air. INTAKE AND OUTPUT: Urine output recorded yesterday is 250 mL. Urine output recorded so far today since overnight is 305 mL and hourly output is roughly around 10-15 mL. PHYSICAL EXAMINATION: GENERAL: Patient is awake, alert, oriented times three, lying in bed, in no apparent distress. HEAD AND NECK EXAM: Extraocular muscles intact. Pupils equally round and reactive to light. Mucous membranes are moist. Neck is supple. There is no jugular venous distention (JVD). CARDIOVASCULAR: S1, S2, regular rate. No murmur, rub or gallop. There is no edema of the bilateral lower extremities. RESPIRATORY: Chest is clear to auscultation bilaterally, bilateral equal air entry. No rales or rhonchi. ABDOMEN: Is soft, moderately tender at the surgical site from a recent (C) section. There are slightly diminished bowel sounds. MUSCULOSKELETAL: No clubbing or cyanosis. Pulses are 2+. CENTRAL NERVOUS SYSTEM (SKIN LAP BONDER): No focal neurologic deficits Power is 5/5 in bilateral upper extremities. GENITOURINARY: Patient has an indwelling Peterson catheter and urine in the bag is dilute typical acute tubal necrosis (ATN) urine. LABORATORY REVIEW: CBC showed a WBC of 9.9, hemoglobin 7.4, platelets 70. Urinalysis done today evening showed 2+ protein, 3+ blood, 26 WBCs, 179 RBCs. BMP today morning showed sodium 140, potassium 4.2, chloride 108, bicarbonate is 23, BUN 29 creatinine at 3.8. INR calcium is 4.1. Phosphorus 4.9. Albumin is 1.6. IMAGING: Renal ultrasound was done today, which showed right kidney was 12.5 cm, left kidney was 11.7 cm. There was no hydronephrosis, cyst or mass. Peak velocities well within the normal range. No evidence of renal artery stenosis. CURRENT INPATIENT MEDICATIONS: Patient's medications were all reviewed by me. He was given a dose of calcium gluconate 1 gram IV today by me because of hypocalcemia. She continues to be on Cefazolin 1 gram IV daily. She was on dextrose 5% in water (D5W) at 40 mL/hr because she was still nothing by mouth. There is no other change in the medications today as compared with yesterday. ASSESSMENT: 41-year-old female with history of seizure disorder, status post emergent section, which was complicated by disseminated intravascular coagulation (DIC). She had occult uterine rupture requiring partial hysterectomy and now patient has acute oliguric renal failure. PLAN: 1. Acute oliguric renal failure. Patient went into hemorrhagic shock during the surgery. She required multiple transfusions. She most likely has hypotensive ATN. Patient continues to be oliguric at this time. No need of IV fluid hydration if patient starts eating. I am hopeful that within the next 48-72 hours patient should start making urine. No urgent need of hemodialysis at this time. Volume status is optimal. No need of IV diuretics. 2. Anemia secondary to hemorrhagic shock. Patient's hemoglobin continues to drop. It was 7.4 today. Patient is suppose to get another unit of PRBC transfusion today. 3. Thrombocytopenia. It is most likely dilutional. Patient got multiple transfusions in the operating room (OR). Platelet count is within the acceptable range. No need of platelet transfusion at this time. 4. History of seizure disorder. Continue current dose orf Lamictal 100 mg by mouth twice a day. 5. Hypocalcemia. It is secondary to multiple citrate containing blood transfusions. Patient was given a dose of calcium gluconate 1 gram IV today morning. I spent a total of 35 minutes of critical care of this patient in the ICU today morning.
[2017-01-13 12:45] VITALS: BP 114/72
[2017-01-13] MEDS ORDERED: MORPHINE 4 MG/ML 1ML SYRINGE IV ONE (15:45)
[2017-01-13] MEDS ORDERED: PROCHLORPERAZINE 10 MG/2 ML VIAL (J0780) IV PRN (15:45)
[2017-01-13 16:00] VITALS: BP 124/77
[2017-01-13 20:00] VITALS: BP 114/74
[2017-01-13] MEDS: CEFTRIAXONE SOD 1 GM in APPROPRIATE DILUENT 1 EA IV SCH (21:17)
[2017-01-13] MEDS: LAMICTAL 300 MG PO SCH (21:18)
[2017-01-14] VITALS: BP 111/62
[2017-01-14 04:00] VITALS: BP 125/75
[2017-01-14 04:41] LABS: BASO % 0.3 % (0.0-1.0); EOS # 0.2 10^3/uL (0.0-0.50); EOS % 1.5 % (0.0-3.0); IMMATURE GRANULOCYTE % 1.4 % (0-0); LYMPH # 1.7 10^3/uL (1.5-4.5); LYMPH % 15.8 % (24.0-44.0); MEAN CORPUSCULAR HEMOGLOBIN 29.6 pg (27.0-33.0); MEAN CORPUSCULAR HGB CONC 33.7 g/dl (32.0-36.5); MEAN CORPUSCULAR VOLUME 87.8 fl (80.0-96.0); MONO # 0.7 10^3/uL (0.0-0.8); NEUTROPHILS # 8.2 10^3/uL (1.8-7.7); PLATELET COUNT, AUTOMATED 103 10^3/uL (150-450); RED CELL DISTRIBUTION WIDTH 14.8 % (11.5-14.5); WHITE BLOOD COUNT 10.9 10^3/uL (4.0-10.0)
[2017-01-14 04:54] LABS: ALBUMIN 1.7 GM/DL (3.2-5.2); ALBUMIN/GLOBULIN RATIO 0.68 (1.00-1.93); ALKALINE PHOSPHATASE 66 U/L (45-117); ALT/SGPT < 6 U/L (12-78); ANION GAP 10 MEQ/L (8-16); AST/SGOT 35 U/L (7-37); BILIRUBIN,TOTAL 0.3 MG/DL (0.2-1.0); BLOOD UREA NITROGEN 51 MG/DL (7-18); CALCIUM LEVEL 7.3 MG/DL (8.5-10.1); CARBON DIOXIDE LEVEL 21 MEQ/L (21-32); CHLORIDE LEVEL 105 MEQ/L (98-107); CHOLESTEROL LEVEL 137 MG/DL (< 200); CREATININE FOR GFR 8.11 MG/DL (0.55-1.02); GLOMERULAR FILTRATION RATE 5.8 (>58); GLUCOSE, FASTING 84 MG/DL (70-105); PHOSPHORUS LEVEL 7.3 MG/DL (2.5-4.9); SODIUM LEVEL 136 MEQ/L (136-145); TOTAL PROTEIN 4.2 GM/DL (6.4-8.2); TRIGLYCERIDES LEVEL 230 MG/DL (<150)
[2017-01-14 04:56] LABS: POTASSIUM SERUM 5.4 MEQ/L (3.5-5.1)
[2017-01-14] MEDS: PERCOCET 5MG/325MG TAB PO PRN ×4 (06:33→23:49)
[2017-01-14 08:00] VITALS: BP 116/76
[2017-01-14] MEDS ORDERED: FUROSEMIDE 100 MG/10 ML VIAL (J1940) IV ONE (08:00)
[2017-01-14] MEDS: lamoTRIgine 100MG TAB GT SCH ×2 (08:03→09:00)
[2017-01-14] MEDS: PANTOPRAZOLE 40MG INJ (PROTONIX) (C9113) IV SCH (08:03)
[2017-01-14] MEDS: CEFTRIAXONE SOD 1 GM in APPROPRIATE DILUENT 1 EA IV SCH ×2 (08:04→21:05)
--- NOTE | 2017-01-14 10:03 | IPN ---
DATE OF SERVICE: 01/13/2017 Mrs. Huang is seen this morning on her bedside in intensive care unit. She underwent induction of labor however, it was quite complicated due to ruptured uterus for which she required an urgent partial hysterectomy. She developed DIC and hypotension. She has developed oliguric acute renal failure as a result and remains in intensive care unit. She was initially intubated. However, has been successfully extubated. The patient required large volumes of blood products due to DIC and acute blood loss related to ruptured uterus. At present, she is awake, alert and without any acute distress. Nursing staff reports that this morning her oxygen saturation did drop and she required 3 liters of oxygen via nasal cannula. She denies any pleuritic type of chest pain or hemoptysis. She has no fever or chills and has been on cephazolin 1 gram every 24 hours. She is tolerating a full liquid diet and denies any vomiting, nausea or abdominal pain. Review of systems otherwise is unremarkable. PHYSICAL EXAMINATION: The patient is awake, alert and oriented times three. She is not in any acute distress. Temperature 98.7 degrees Fahrenheit, heart rate 86 per minute and respiratory rate 18 per minute. Blood pressure 117/72 mmHg and oxygen saturation 93% on 3 liters oxygen. Head is atraumatic. Neck is supple and mild thyroid enlargement is noted along with minimal neck vein distension. Pupils are equal and reactive to light and sclera is anicteric. Neck is supple and JVD is only mildly elevated. There is mild thyroid enlargement. Heart exam reveals regular S1, S2. Lungs have diminished breath sounds at bases with rhonchi at right base. Abdomen is soft and bowel sounds are present. Surgical dressings are intact. Extremities have no cyanosis or clubbing. Skin has no rash or ulcers. Neurologically she is awake, alert and oriented times three. She has no focal neurological deficit. LABORATORY DATA: WBC count 13.0, hemoglobin 9.1 and hematocrit 26.5. Platelets are 87,000. Sodium 138 and potassium 4.5. BUN 37 and creatinine 6.09. Calcium level 7.4 with ionized calcium 4.1 and phosphorus 5.8. AST 44, ALT less than 6 and alkaline phosphatase 63. LDH is 358 and CPK 612. Urinalysis showed 3+ blood and 2+ protein with 26 WBCs and 179 RBCs. PROBLEMS: 1. Oliguric acute renal failure. The patient has minimal urine output. Her acute renal failure is related to acute tubular necrosis caused by DIC and hypovolemic shock. Her blood pressure has improved and volume status has been corrected with transfusion of multiple units of blood products. At this point, there is no emergent indication for dialysis as her electrolytes are within normal range and she does not have metabolic acidosis. We anticipate improvement in her kidney function over next few days. We will continue to monitor closely and reevaluate her again tomorrow for potential need for dialysis. A dose of Lasix 40 mg intravenously is being given and we will see how she responds. 2. Hypoxemia most likely related to some volume overload and atelectasis. A stat chest x-ray has been done as I ordered earlier and it did show increased atelectasis particularly at right base. The patient is on cephazolin which is being stopped. She is being encouraged to get out of bed and increase her incentive spirometry. We will switch her antibiotic to Rocephin 1 gram every 12 hours. 3. Acute blood loss anemia. Her anemia has improved and she has received multiple transfusions. At this point, no indication for further blood transfusion. We will continue to monitor closely. 4. Hypotension. Blood pressure has improved and her reports that her normal usual blood pressure is in 90s to 100 mmHg. At this point, she does not need IV fluid which has already been stopped. We will now try to diurese her as she seems to be somewhat volume overloaded. I have discussed with the patient and her at length about her condition and potential need for dialysis. I have answered all their questions. I will recommend to keep the patient in intensive care unit for at least next 24 hours due to persistent oliguric acute renal failure with hypoxemia and potential need for dialysis. KAITLIN
[2017-01-14] MEDS ORDERED: LIDOCAINE 1% MDV 20ML VIAL As Ordered ONE (10:08)
[2017-01-14] MEDS ORDERED: MIDAZOLAM INJ 2 MG/2 ML VIAL (J2250) As Ordered ONE (10:11)
[2017-01-14] MEDS ORDERED: MIDAZOLAM INJ 2 MG/2 ML VIAL (J2250) IV ONE (11:00)
[2017-01-14] MEDS ORDERED: LIDOCAINE 1% MDV 20ML VIAL SC ONE (11:00)
[2017-01-14] MEDS: SIMETHICONE 80 MG CHEW TAB PO PRN ×2 (11:39→14:41)
[2017-01-14] MEDS: DOCUSATE SODIUM 100 MG CAP PO SCH ×3 (11:39→21:05)
[2017-01-14 12:00] VITALS: BP 143/91
[2017-01-14] MEDS ORDERED: HEPARIN 1,000 UNITS/ML 10ML VIAL (FOR RADIOLOGY& DIALYSIS ONLY) XX ONE (12:45)
[2017-01-14] MEDS ORDERED: HEPARIN 1,000 UNITS/ML 10ML VIAL (FOR RADIOLOGY& DIALYSIS ONLY) IV ONE (13:00)
[2017-01-14 16:00] VITALS: BP 122/78
--- NOTE | 2017-01-14 17:14 | REP ---
Clinical: Acute renal failure. Hydronephrosis. Technique: Real time hayes scale ultrasound examination using curved array transducer. The bilateral kidneys are normal in contour, size, echogenicity and reniform shape. No evidence for nephrolithiasis, cystic, or renal mass lesion. Right kidney measures 12.5 x 5.7 x 5.1 cm without hydronephrosis. Left kidney measures 12.0 x 4.9 x 5.1 cm with mild renal fullness/hydronephrosis. Impression: Cannot exclude very minimal left renal hydronephrosis. Otherwise normal renal ultrasound. Signed by Ruel Rothman MD 01/14/2017 05:07 P
[2017-01-14 20:00] VITALS: BP 128/75
[2017-01-14] MEDS: LAMICTAL 300 MG PO SCH (21:10)
[2017-01-14] MEDS: ONDANSETRON 4MG/2ML VIAL (J2405) IV PRN (22:44)
[2017-01-15] VITALS: BP 113/70
[2017-01-15 04:00] VITALS: BP 114/74
[2017-01-15] MEDS: PERCOCET 5MG/325MG TAB PO PRN ×5 (04:03→20:15)
[2017-01-15 04:30] LABS: BASO % 0.2 % (0.0-1.0); EOS # 0.1 10^3/uL (0.0-0.50); EOS % 1.5 % (0.0-3.0); LYMPH # 1.5 10^3/uL (1.5-4.5); LYMPH % 16.2 % (24.0-44.0); MEAN CORPUSCULAR HGB CONC 34.5 g/dl (32.0-36.5); MONO # 0.8 10^3/uL (0.0-0.8); MONO % 8.2 % (0.0-5.0); NEUTROPHILS # 6.8 10^3/uL (1.8-7.7); NEUTROPHILS % 71.9 % (36.0-66.0); PLATELET COUNT, AUTOMATED 137 10^3/uL (150-450); RED CELL DISTRIBUTION WIDTH 14.3 % (11.5-14.5); WHITE BLOOD COUNT 9.4 10^3/uL (4.0-10.0)
[2017-01-15 04:55] LABS: ALBUMIN 1.7 GM/DL (3.2-5.2); ALBUMIN/GLOBULIN RATIO 0.65 (1.00-1.93); BILIRUBIN,TOTAL 0.3 MG/DL (0.2-1.0); CALCIUM LEVEL 7.3 MG/DL (8.5-10.1); CREATININE FOR GFR 6.65 MG/DL (0.55-1.02); GLOMERULAR FILTRATION RATE 7.2 (>58); PHOSPHORUS LEVEL 6.7 MG/DL (2.5-4.9); POTASSIUM SERUM 4.4 MEQ/L (3.5-5.1); TOTAL PROTEIN 4.3 GM/DL (6.4-8.2)
[2017-01-15] MEDS: SIMETHICONE 80 MG CHEW TAB PO PRN ×2 (05:59)
[2017-01-15 08:00] VITALS: BP 115/74
[2017-01-15] MEDS: DOCUSATE SODIUM 100 MG CAP PO SCH ×3 (08:14→20:14)
[2017-01-15] MEDS: CEFTRIAXONE SOD 1 GM in APPROPRIATE DILUENT 1 EA IV SCH ×2 (08:15→20:15)
[2017-01-15] MEDS: PANTOPRAZOLE 40MG INJ (PROTONIX) (C9113) IV SCH (08:15)
[2017-01-15] MEDS ORDERED: FUROSEMIDE 100 MG/10 ML VIAL (J1940) IV ONE (11:15)
[2017-01-15 12:00] VITALS: BP 116/74
[2017-01-15] MEDS ORDERED: PROCHLORPERAZINE 10 MG/2 ML VIAL (J0780) IV PRN (14:00)
--- NOTE | 2017-01-15 15:27 | IPN ---
DATE: 01/14/2017 Mrs. Huang is seen this morning on her bedside. She has been feeling reasonably well, however, remains on 3 liters oxygen. She denies any nausea or vomiting. She has no fever or chills. She had a complication following her delivery and required urgent hysterectomy due to ruptured uterus and loss of massive amount of blood. She has received multiple transfusions and now has been hemodynamically stable. During this, she developed anuric renal failure, from which she has not recovered so far. The patient denies any nausea or vomiting. She is tolerating oral intake. Urine output has been minimal despite intravenous Lasix given yesterday. PHYSICAL EXAMINATION: Temperature 98.6 degrees Fahrenheit, heart rate 78 per minute, respiratory rate 18 per minute, blood pressure 143/90 mm of mercury, and oxygen saturation 95% on 3 liters oxygen. Head is atraumatic. Neck is supple and without any thyroid enlargement or jugular venous distention (JVD). Pupils are equal and reactive to light and sclerae are anicteric. Ears, nose and throat are unremarkable. Heart sounds are regular and lungs with slightly diminished breath sounds on the left base and significantly diminished breath sounds at right lower one-third with basilar crepitations. Abdomen is soft, and bowel sounds are present. Extremities have no cyanosis or clubbing. Skin has no rash or ulcers. Neurologically, she is awake, alert and oriented times three. She has a drain in her lower abdomen, which is draining serosanguineous fluid. Today's labs show WBC count 10.9, hemoglobin 9.2, hematocrit 27.3. Sodium 136, potassium 5.4, BUN 51, and creatinine 8.11. Calcium level 7.3 and phosphorus also 7.3. PROBLEMS: 1. Oliguric acute renal failure, most likely related to acute tubular necrosis. The patient has not recovered her kidney function, and urine output remains minimal. She has now developed hyperkalemia and worsening kidney function. I have discussed with her and explained the potential need for dialysis. She is not happy, however, is willing to undergo dialysis today. We have already made arrangements, and I have requested Dr. Duncan for a dialysis catheter placement. The patient will be dialyzed on her bedside. Our plan is to use 2.0 mEq potassium bath to correct her hyperkalemia and remove 2 liters of fluid as tolerated. We will also get a repeat ultrasound to rule out any possibility of hydronephrosis in view of her urgent hysterectomy and risk for ureteral ligation. 2. Anemia. Anemia is stable and does not need any intervention. Her platelets are improving. 3. Hypervolemia and hypoxemia. She does have volume overload due to large amount of intravenous (IV) fluids and blood products given. Will try to remove 2 liters of fluid today. We are also giving her Lasix and try to diurese her, as she is hemodynamically stable and likely to respond.
[2017-01-15] MEDS: SENNA 8.6 MG TAB (SENOKOT) PO SCH ×2 (15:42→20:14)
[2017-01-15] MEDS: MOM 30ML SUSPENSION UDC PO PRN (16:39)
[2017-01-15 17:45] VITALS: BP 132/80
--- NOTE | 2017-01-15 18:39 | IPN ---
DATE: 01/15/2017 Mrs. Qiu is this morning on her bedside in intensive care unit. She was admitted with DIC and shock following induction of labor and complicated with ruptured uterus. She underwent emergent section following which she had a hysterectomy due to DIC and identification of a uterine laceration. In any event, through this complicated process, she developed oliguric acute renal failure which has not improved so far. Yesterday she underwent hemodialysis due to hyperkalemia and worsening volume status with hypoxemia. Today she seems to have increased urine output. She is feeling much better today and denies any dyspnea, chest pain, nausea or vomiting. Yesterday she had a repeat renal ultrasound which only showed possible mild left-sided hydronephrosis but no evidence of any significant hydronephrosis. She had a right femoral vein catheter placement for hemodialysis and catheter was removed after dialysis. She denies any pain at the femoral catheter site. PHYSICAL EXAMINATION: Temperature 98.6 degrees Fahrenheit, heart rate 74 per minute and respiratory rate 18 per minute. Blood pressure 132/80 mmHg and oxygen saturation 95% on room air. Head is atraumatic. Ears, nose and throat are unremarkable. Pupils equal and reactive to light and sclerae is anicteric. Neck supple and without JVD or thyroid enlargement. Heart sounds regular and lungs with diminished breath sounds at the right lower one-third. A few basilar rales are present bilaterally. Abdomen is soft and bowel sounds are present. Surgical incisions are intact. She still has a drain in her lower abdomen. Extremities have no cyanosis or clubbing. Neurologically she is awake, alert and oriented times three. Today's labs show WBC count 9.4, hemoglobin 9.9 and hematocrit 28.7. Platelets 137. Sodium 136 and potassium 4.4. BUN 38 and creatinine 6.65. Calcium level 7.3 and phosphorus 6.7. Total protein is 4.3 and albumin 1.7. PROBLEMS: 1. Oliguric acute renal failure. The patient underwent hemodialysis yesterday. Today there is no emergent indication for dialysis and she seems to have improving urine output. We will monitor for next 24-48 hours without any further dialysis. I have explained to her that I am very optimistic about recovery of kidney function in next couple of days. 2. Hypoxemia. She does have volume overload due to massive amounts of blood products and IV fluids given when she was in shock and DIC. Two liters fluid was removed yesterday with hemodialysis and she is not requiring oxygen anymore. We will try to diurese her today with intravenous Lasix 80 mg and see how she responds. Previously, she has not responded to diuretic so far, however seems to be more likely to respond to diuretic now as her vital signs have been stable and she already has slightly increased urine output. 3. Hyperkalemia. This is corrected with hemodialysis yesterday and no further intervention is indicated. Will recheck her electrolytes tomorrow morning. 4. Anemia related to acute blood loss and has been stable now. No intervention is indicated at present. DISPOSITION: From a renal standpoint, the patient can be transferred to regular medical floor.
[2017-01-15] MEDS: LAMICTAL 300 MG PO SCH (20:16)
[2017-01-15 22:00] VITALS: BP 122/80
[2017-01-16] MEDS: PERCOCET 5MG/325MG TAB PO PRN ×3 (03:22→12:32)
[2017-01-16 06:00] VITALS: BP 119/79
[2017-01-16] MEDS: DOCUSATE SODIUM 100 MG CAP PO SCH ×3 (08:06→21:20)
[2017-01-16] MEDS: PANTOPRAZOLE 40MG INJ (PROTONIX) (C9113) IV SCH (08:06)
[2017-01-16] MEDS: CEFTRIAXONE SOD 1 GM in APPROPRIATE DILUENT 1 EA IV SCH ×2 (08:06→21:21)
[2017-01-16] MEDS: SENNA 8.6 MG TAB (SENOKOT) PO SCH ×2 (08:06→21:20)
[2017-01-16 08:14] LABS: MEAN CORPUSCULAR HEMOGLOBIN 30.1 pg (27.0-33.0); MEAN CORPUSCULAR HGB CONC 33.8 g/dl (32.0-36.5); MEAN CORPUSCULAR VOLUME 89.2 fl (80.0-96.0); PLATELET COUNT, AUTOMATED 162 10^3/uL (150-450); RED CELL DISTRIBUTION WIDTH 14.2 % (11.5-14.5); WHITE BLOOD COUNT 10.3 10^3/uL (4.0-10.0)
[2017-01-16 08:36] LABS: ALBUMIN 1.9 GM/DL (3.2-5.2); CALCIUM LEVEL 7.2 MG/DL (8.5-10.1); CREATININE FOR GFR 8.66 MG/DL (0.55-1.02); GLOMERULAR FILTRATION RATE 5.3 (>58); PHOSPHORUS LEVEL 7.4 MG/DL (2.5-4.9); POTASSIUM SERUM 4.4 MEQ/L (3.5-5.1)
[2017-01-16] MEDS: MOM 30ML SUSPENSION UDC PO PRN (12:50)
[2017-01-16 14:00] VITALS: BP 130/83
--- NOTE | 2017-01-16 15:17 | IPN ---
DATE: 01/16/2017 Mrs. Huang is seen this morning on her bedside. She is feeling well and denies any dyspnea or chest pain. She is tolerating her diet very well. She has increased urine output. She has no fever or chills and denies any flank pain. She was transferred out of intensive care unit to regular medical floor yesterday. On physical examination, temperature 98.6 degrees Fahrenheit, heart rate 82 per minute and respiratory rate 18 per minute. Blood pressure 119/79 mmHg and oxygen saturation 95% on room air. Head is atraumatic. Neck is supple and without JVD or thyroid enlargement. Pupils equal and reactive to light and sclerae is anicteric. Abdomen is soft and nontender. The CAMRYN drain is present in lower abdomen. Surgical incisions are clean. Extremities have no cyanosis or clubbing. Skin has no rash or ulcers. Neurologically she is awake, alert and oriented times three. She has no asterixis. Today's labs show WBC count 10.3, hemoglobin 10.0 and hematocrit 29.6. Platelets 162. Sodium 134 and potassium 4.4. BUN 51 and creatinine 8.66. Calcium 7.2 and phosphorus 7.4. Albumin is 1.9 today. Intake and output records from yesterday showed total intake 1560 and output 1670. Today her urine output seems to be much more than yesterday. PROBLEMS: 1. Acute renal failure. She initially had oliguric renal failure due to acute tubular necrosis caused by DIC and hypovolemia. Now she is non oliguric with improving urine output. No diuretic has been given today. Her creatinine is increasing but electrolytes are within normal range. She has no uremic symptoms at all. We will monitor her renal function for next 24 hours without further dialysis. 2. Anemia. This is due to acute blood loss and anemia is stable and gradually improving. No need for Aranesp or certainly not for any transfusions. 3. Left-sided hydronephrosis. Her repeat ultrasound on 01/14/2017, did raise a question for minimal left-sided hydronephrosis. She had an urgent hysterectomy and there is a concern about possibility of ligation of ureter. She does not seem to have any urinary leak and CAMRYN drain is draining serosanguineous fluid. We will repeat her renal ultrasound tomorrow morning. She is so I will avoid the nuclear renal scan which would involve radioactive contrast. 4. Hyponatremia. This is very mild and related to recovering acute renal failure. No intervention is indicated at this point. 5. Hyperphosphatemia. Her phosphorus level is slightly elevated today and I am hoping and anticipating that over the next 24 hours it will start coming down as her kidney function improves.
[2017-01-16] MEDS: SIMETHICONE 80 MG CHEW TAB PO PRN (15:22)
[2017-01-16] MEDS: FLEET ENEMA PR PRN (16:05)
[2017-01-16] MEDS: LAMICTAL 300 MG PO SCH (21:21)
[2017-01-16 22:00] VITALS: BP 132/83
[2017-01-17 06:00] VITALS: BP 136/87
[2017-01-17 08:05] LABS: MEAN CORPUSCULAR HEMOGLOBIN 29.8 pg (27.0-33.0); MEAN CORPUSCULAR HGB CONC 33.9 g/dl (32.0-36.5); MEAN CORPUSCULAR VOLUME 87.7 fl (80.0-96.0); PLATELET COUNT, AUTOMATED 190 10^3/uL (150-450); WHITE BLOOD COUNT 9.3 10^3/uL (4.0-10.0)
[2017-01-17 08:19] LABS: ALBUMIN 1.8 GM/DL (3.2-5.2); ALBUMIN/GLOBULIN RATIO 0.62 (1.00-1.93); BILIRUBIN,TOTAL 0.3 MG/DL (0.2-1.0); CALCIUM LEVEL 7.4 MG/DL (8.5-10.1); CREATININE FOR GFR 9.49 MG/DL (0.55-1.02); GLOMERULAR FILTRATION RATE 4.8 (>58); POTASSIUM SERUM 4.9 MEQ/L (3.5-5.1); TOTAL PROTEIN 4.7 GM/DL (6.4-8.2)
[2017-01-17] MEDS: DOCUSATE SODIUM 100 MG CAP PO SCH ×3 (09:12→20:54)
[2017-01-17] MEDS: PANTOPRAZOLE 40MG INJ (PROTONIX) (C9113) IV SCH (09:12)
[2017-01-17] MEDS: CEFTRIAXONE SOD 1 GM in APPROPRIATE DILUENT 1 EA IV SCH ×2 (09:13→20:54)
[2017-01-17] MEDS: SENNA 8.6 MG TAB (SENOKOT) PO SCH ×2 (09:13→20:54)
[2017-01-17] MEDS: PERCOCET 5MG/325MG TAB PO PRN ×3 (09:15→17:38)
[2017-01-17] MEDS ORDERED: LIDOCAINE 1% MDV 20ML VIAL As Ordered ONE (11:28)
[2017-01-17] MEDS ORDERED: MIDAZOLAM INJ 2 MG/2 ML VIAL (J2250) As Ordered ONE (11:32)
[2017-01-17] MEDS ORDERED: LIDOCAINE 1% MDV 20ML VIAL SC ONE (12:00)
[2017-01-17] MEDS ORDERED: MIDAZOLAM INJ 2 MG/2 ML VIAL (J2250) IV ONE (12:00)
--- NOTE | 2017-01-17 12:24 | IPN ---
DATE: 01/17/2017 Mrs. Huang is seen this morning on her bedside. She is feeling better and is currently sitting in the chair. She has good urine output for last 48 hours. She denies any dyspnea, chest pain, nausea or vomiting. She has been breast feeding her baby. She developed acute renal failure due to complications of disseminated intravascular coagulation (DIC) and ruptured uterus. She had an emergent hysterectomy following her . Her acute kidney failure was initially oliguric, which has converted to non oliguric however function has not improved so far. She did have one hemodialysis done 3 days ago. PHYSICAL EXAMINATION: Temperature 98.0 degrees Fahrenheit, heart rate 73 per minute and respiratory rate 18 per minute. Blood pressure 136/87 mmHg and oxygen saturation 92% on room air. Her head is atraumatic. Neck: Supple and without jugular venous distention or thyroid enlargement. Heart: Sounds regular and without pericardial friction rub. Lungs with diminished breath sounds at the right base and bibasilar rales. Abdomen: Soft and nontender. Extremities: Without cyanosis or clubbing. Neurologically she is awake, alert and oriented times three. She has no asterixis. Today's labs show WBC count 9.3, hemoglobin 9.7 and hematocrit 28.6. Platelets are 190. Sodium 132 and potassium 4.9. BUN 60 and creatinine 9.49. Calcium level 7.4. Intake and output records from yesterday showed total intake 2530 and output 2700. PROBLEMS: 1. Acute renal failure: The patient is nonoliguric but her BUN and creatinine are still increasing. I have ordered a repeat renal ultrasound due to suspicion for mild left-sided hydronephrosis. She had an emergent hysterectomy and we have been concerned about possibility of ureteral ligation, though it seems less likely. We will get ultrasound today to assess for her hydronephrosis. In the meantime she has a good amount of urine output. However, her BUN and creatinine are not improving. I have discussed with her about another need for dialysis today. She is certainly upset over it, however, she understands that she has risk for uremic complications. 2. Hyponatremia slightly worse and most likely this is result of acute renal failure. It is likely to improve with hemodialysis. 3. Anemia: Her anemia is stable at present and no intervention is indicated. It is likely to correct over next several weeks. 4. Thrombocytopenia: The patient had DIC and severe thrombocytopenia. However, it is gradually improving and platelets are now normal range. 5. Dialysis access: The patient has declined a femoral catheter placement. I have requested Dr. Gonzalez for a subclavian dialysis catheter placement today. The patient will be dialyzed as soon as the catheter gets placed.
--- NOTE | 2017-01-17 12:46 | REP ---
Clinical: Status post line placement. Comparison: 01/13/2017. Findings: Right IJ line with tip in the right atrium. Mediastinum and cardiac silhouette are within normal limits. Decreased lower lobe (right greater left) opacities are appreciated. No pneumothorax. Skeletal structures intact. Impression: Decreased opacities. Right IJ line. No pneumothorax. Signed by Ruel Rothman MD 01/17/2017 12:37 P
--- NOTE | 2017-01-17 13:29 | RO ---
DATE OF PROCEDURE: 01/17/2017 PREPROCEDURE DIAGNOSIS: Renal failure, need for dialysis. POSTPROCEDURE DIAGNOSIS: Renal failure, need for dialysis. PROCEDURE: Insertion of right internal jugular veno-venous dialysis catheter. SURGEON: Dr. Timoteo Gonzalez VETERINARY TECHNOLOGY INSTRUCTOR: ANESTHESIA: PROCEDURE: The left infraclavicular fossa was prepped and draped in the usual sterile fashion. It was infiltrated with 1% Xylocaine. I could not pass the needle beneath the clavicle as there was a large fibrous ligament. I therefore changed positions. Again, sterilely prepped and draped the patient and found the right internal jugular between the two heads of the sternocleidomastoid. The vein was found on the first pass. A wire was placed without difficult. The tract was incised, dilated and a veno-venous catheter was placed without difficulty. The catheter was secured to the neck with two #3-0 silk sutures. The ports were aspirated and flushed without difficulty. The patient tolerated the procedure well and a chest x-ray is pending.
[2017-01-17 13:30] LABS: HEPATITIS B SURFACE ANTIBODY POSITIVE (POSITIVE)
[2017-01-17 16:55] LABS: BLOOD UREA NITROGEN BF 46 MG/DL (NOT ESTABLISHED); SOURCE, BODY FLUID CREATININE PERITONEAL
[2017-01-17 17:38] VITALS: BP 115/77
[2017-01-17] MEDS: FLEET ENEMA PR PRN (18:36)
--- NOTE | 2017-01-17 19:36 | REP ---
Urinary tract sonography: History: Acute renal failure. Question left-sided hydronephrosis. Comparison study January 14, 2017 showed equivocal changes for left-sided hydronephrosis. Findings: A Peterson catheter is noted in the urinary bladder. Renal cortical echogenicity pattern is normal bilaterally. Renal contours are smooth. There is no evidence of hydronephrosis today on either side. No cyst, mass, or calculus is seen. The left renal dimensions are 11.0 x 5.1 x 5.7 cm. Right renal dimensions are 12.9 x 5.3 x 6.6 cm. Impression: No evidence of hydronephrosis today. Negative urinary tract sonography. Peterson catheter in the bladder. Signed by Geoffrey Hickman MD 01/17/2017 08:35 P
[2017-01-17] MEDS: LAMICTAL 300 MG PO SCH (21:32)
[2017-01-17 22:00] VITALS: BP 151/81
[2017-01-18 06:00] VITALS: BP 132/85
[2017-01-18 06:52] LABS: MEAN CORPUSCULAR HEMOGLOBIN 30.4 pg (27.0-33.0); MEAN CORPUSCULAR HGB CONC 34.3 g/dl (32.0-36.5); MEAN CORPUSCULAR VOLUME 88.7 fl (80.0-96.0); PLATELET COUNT, AUTOMATED 251 10^3/uL (150-450); RED CELL DISTRIBUTION WIDTH 14.1 % (11.5-14.5); WHITE BLOOD COUNT 8.3 10^3/uL (4.0-10.0)
[2017-01-18 06:55] LABS: ADD MANUAL DIFFER YES; DIFF SLIDE NUMBER 104; POS COUNT POS FLAG; POSITIVE MORPH POS FLAG
[2017-01-18 07:05] LABS: ALBUMIN 1.7 GM/DL (3.2-5.2); ALBUMIN/GLOBULIN RATIO 0.55 (1.00-1.93); BILIRUBIN,TOTAL 0.3 MG/DL (0.2-1.0); CALCIUM LEVEL 7.7 MG/DL (8.5-10.1); CREATININE FOR GFR 6.15 MG/DL (0.55-1.02); GLOMERULAR FILTRATION RATE 7.9 (>58); PHOSPHORUS LEVEL 5.7 MG/DL (2.5-4.9); POTASSIUM SERUM 4.9 MEQ/L (3.5-5.1); TOTAL PROTEIN 4.8 GM/DL (6.4-8.2)
[2017-01-18] MEDS: PERCOCET 5MG/325MG TAB PO PRN ×2 (07:34→15:14)
[2017-01-18 07:36] LABS: EOSINOPHILS 3 % (0-5)
[2017-01-18] MEDS: PANTOPRAZOLE 40MG INJ (PROTONIX) (C9113) IV SCH (09:02)
[2017-01-18] MEDS: CEFTRIAXONE SOD 1 GM in APPROPRIATE DILUENT 1 EA IV SCH ×2 (09:02→20:55)
[2017-01-18] MEDS: SENNA 8.6 MG TAB (SENOKOT) PO SCH ×2 (09:02→20:55)
[2017-01-18] MEDS: DOCUSATE SODIUM 100 MG CAP PO SCH ×3 (09:02→20:55)
[2017-01-18 14:00] VITALS: BP 140/80
--- NOTE | 2017-01-18 20:40 | IPN ---
DATE: 01/18/2017 The patient is seen this morning on her bedside. She developed oliguric acute renal failure following complications of disseminated intravascular coagulation (DIC) and uterine rupture leading to hypotension. She has required temporary hemodialysis. The patient has become nonoliguric with good urine output. However, her creatinine has been increasing. She was dialyzed yesterday via a right internal jugular vein catheter placement. She has a complaint of severe pain and discomfort at the catheter site. She feels that she cannot move her neck and has difficulty even feeding her baby. She could not sleep last night due to pain. She denies any dyspnea or nausea. She reports fair appetite. She still has a Peterson catheter which she does not want to get out as yet as her urine output has improved significantly and she has problems with moving frequently. PHYSICAL EXAMINATION: On physical examination, temperature 98.4 degrees Fahrenheit, heart rate 72 per minute and respiratory rate 18 per minute. Blood pressure 140/80 mmHg and oxygen saturation 98% on room air. Right internal jugular vein catheter is intact. Head is atraumatic. Neck veins are not abnormally distended. Pupils are equal and reactive to light and sclera is anicteric. Ears, nose and throat are unremarkable. Heart examination reveals regular S1, S2. Lungs with few basilar crackles on the right base. There is no wheezing. Abdomen is soft and nontender. Shaka-Etienne (CAMRYN) drain is still present in lower abdomen. Extremities have no cyanosis or clubbing. Skin has no rash or ulcers. Neurologically, she is awake, alert and oriented times three. LABORATORY DATA: Today's laboratories show WBC count 8.3, hemoglobin 9.4 and hematocrit 27.4. Platelets 251. Sodium 138 and potassium 4.9. BUN is 31 and creatinine 6.15. Calcium 7.7 and phosphorus 5.7. She had a repeat renal ultrasound done yesterday which showed no evidence of hydronephrosis and normal-sized kidneys. PROBLEMS: 1. Acute renal failure. The patient is nonoliguric. However, unfortunately, she has required hemodialysis. She was last dialyzed yesterday and there is no need for dialysis today. The patient wants to get her right internal jugular vein catheter removed due to severe pain and inability to move her neck or sleep. We will get that catheter removed. I am optimistic that she will not require further dialysis. However, if she does then we will get a temporary femoral catheter placed. At this point, she has no uremic symptoms and all of her electrolytes are within normal range. Her renal profile will be checked again tomorrow morning. Should we see an improvement in her kidney function then she can be discharged to home and followup as an outpatient. 2. Anemia. Her anemia has been stable and no intervention is indicated at this point. She will need to continue oral iron supplement and multivitamins over the next few months which will help to correct her anemia. DISPOSITION: At this point, the patient is not ready for discharge. However, as soon as her kidney function starts improving, we can discharge her and then followup as outpatient if needed.
[2017-01-18] MEDS: LAMICTAL 300 MG PO SCH (20:56)
[2017-01-18 22:00] VITALS: BP 136/80
[2017-01-19] MEDS: PERCOCET 5MG/325MG TAB PO PRN ×3 (04:31→08:27)
[2017-01-19] MEDS ORDERED: MORPHINE 4 MG/ML 1ML SYRINGE IV ONE (05:15)
[2017-01-19 06:00] VITALS: BP 141/78
[2017-01-19 06:22] LABS: MEAN CORPUSCULAR HEMOGLOBIN 29.9 pg (27.0-33.0); MEAN CORPUSCULAR HGB CONC 33.2 g/dl (32.0-36.5); MEAN CORPUSCULAR VOLUME 90.1 fl (80.0-96.0); PLATELET COUNT, AUTOMATED 291 10^3/uL (150-450); WHITE BLOOD COUNT 7.7 10^3/uL (4.0-10.0)
[2017-01-19 06:49] LABS: ALBUMIN 1.8 GM/DL (3.2-5.2); ALBUMIN/GLOBULIN RATIO 0.58 (1.00-1.93); BILIRUBIN,TOTAL 0.3 MG/DL (0.2-1.0); CALCIUM LEVEL 7.7 MG/DL (8.5-10.1); CREATININE FOR GFR 6.76 MG/DL (0.55-1.02); GLOMERULAR FILTRATION RATE 7.1 (>58); POTASSIUM SERUM 4.8 MEQ/L (3.5-5.1); TOTAL PROTEIN 4.9 GM/DL (6.4-8.2)
[2017-01-19] MEDS: SENNA 8.6 MG TAB (SENOKOT) PO SCH ×2 (08:25→20:40)
[2017-01-19] MEDS: PANTOPRAZOLE 40MG INJ (PROTONIX) (C9113) IV SCH ×2 (08:25→09:00)
[2017-01-19] MEDS: DOCUSATE SODIUM 100 MG CAP PO SCH ×3 (08:25→20:39)
[2017-01-19] MEDS: CEFTRIAXONE SOD 1 GM in APPROPRIATE DILUENT 1 EA IV SCH ×2 (08:25→09:00)
--- NOTE | 2017-01-19 12:02 | IPN ---
DATE OF VISIT: 01/19/2017 Mrs. Huang is seen this morning on her bedside. She is feeling well and is laying in the bed with head end elevated. She is feeding her baby. Her right IJ hemodialysis catheter was removed yesterday and her neck is feeling much better now. She denies any dyspnea or chest pain. Her Peterson catheter has been removed. PHYSICAL EXAMINATION: Temperature 98.7 degrees Fahrenheit, heart rate 64 per minute and respiratory rate 16 per minute. Blood pressure 140/78 mmHg and oxygen saturation 91% on room air. Intake and output records from yesterday showed total intake 570 which is probably not accurate. Her output is recorded at 2720 mL. Physical exam is essentially unremarkable and unchanged. Her head is atraumatic and neck is supple without jugular venous distention (JVD) or thyroid enlargement. Heart sounds have been regular and lungs have improved and clear. Abdomen soft and nontender. CAMRYN drain has been removed. Her Peterson catheter has also been removed. Extremities have no edema, cyanosis or clubbing. Neurologically she is awake, alert and oriented times three. Today's labs show WBC count 7.7, hemoglobin 9.1 and hematocrit 27.4. Sodium 138 and potassium 4.8. BUN 36 and creatinine 6.76. PROBLEMS: 1. Acute renal failure. The patient is nonoliguric with adequate urine output. We have a smaller increase and the creatinine level compared to yesterday. I feel that tomorrow we will see improvement in her creatinine level and then we can probably discharge her to home. Her electrolytes are all within normal range and volume status is well-compensated. At present I am quite optimistic this is not going to require further hemodialysis. Her dialysis catheter has already been removed. 2. Anemia. She had acute blood loss anemia which has been stable. No intervention at this point. She will need to continue with iron supplement and multivitamins as an outpatient. 3. Pulmonary infiltrates. She is doing very well and her ceftriaxone has been stopped. DISPOSITION: Once we see improvement in her serum creatinine then we can let her go home and followup as outpatient for one more lab in a few days. Overall she has been doing very well and I am quite optimistic that she will have improvement in her creatinine level tomorrow.
[2017-01-19 14:00] VITALS: BP 126/80
[2017-01-19] MEDS: LAMICTAL 300 MG PO SCH (20:39)
[2017-01-19 22:00] VITALS: BP 137/81
[2017-01-20 06:00] VITALS: BP 128/84
[2017-01-20] MEDS ORDERED: OXYC1TAB23 PO (06:19)
[2017-01-20 07:22] LABS: ALBUMIN/GLOBULIN RATIO 0.67 (1.00-1.93); ALKALINE PHOSPHATASE 64 U/L (45-117); ALT/SGPT < 6 U/L (12-78); ANION GAP 10 MEQ/L (8-16); AST/SGOT 14 U/L (7-37); BILIRUBIN,TOTAL 0.2 MG/DL (0.2-1.0); BLOOD UREA NITROGEN 43 MG/DL (7-18); CALCIUM LEVEL 7.5 MG/DL (8.5-10.1); CARBON DIOXIDE LEVEL 24 MEQ/L (21-32); CHLORIDE LEVEL 105 MEQ/L (98-107); CREATININE FOR GFR 6.29 MG/DL (0.55-1.02); GLOMERULAR FILTRATION RATE 7.7 (>58); GLUCOSE, FASTING 90 MG/DL (70-105); PHOSPHORUS LEVEL 6.5 MG/DL (2.5-4.9); POTASSIUM SERUM 4.4 MEQ/L (3.5-5.1); SODIUM LEVEL 139 MEQ/L (136-145)
[2017-01-20] MEDS ORDERED: COLA100C5 PO (07:51)
[2017-01-20] MEDS: SENNA 8.6 MG TAB (SENOKOT) PO SCH (08:29)
[2017-01-20] MEDS: DOCUSATE SODIUM 100 MG CAP PO SCH (08:29)
[2017-01-20] MEDS: PERCOCET 5MG/325MG TAB PO PRN (09:13)
--- NOTE | 2017-01-20 11:09 | IPN ---
DATE OF VISIT: 01/20/2017 Ms. Huang is seen this morning on her bedside. She is feeling well and denies any complaints. She is eating well and has no nausea or vomiting. She denies any dyspnea. She has been breast-feeding her and wants to go home now. On physical examination, temperature 99.6 degrees Fahrenheit, heart rate 84 per minute and respiratory rate 18 per minute. Blood pressure 128/84 mmHg and oxygen saturation 96% on room air. Her physical exam is essentially unremarkable and unchanged. Her lungs have been clear now and heart sounds regular. Neck is supple and without any jugular venous distention (JVD) or thyroid enlargement. Internal jugular vein dialysis catheter removal site is dry and there is only a small Band-Aid on it. Extremities have no cyanosis or clubbing. Today's labs show WBC count 7.7, hemoglobin 9.1 and hematocrit 27.4. Sodium 139 and potassium 4.4. BUN 43 and creatinine 6.29. PROBLEMS: 1. Acute renal failure. Finally, her creatinine has started to come down. She has good urine output. She had acute tubular necrosis related to disseminated intravascular congestion (DIC) and hypovolemia. At this point, there is no need for dialysis and her kidney function is likely to improve over the next few days. From a renal standpoint, she can be discharged to home and follow up in my office next week for recheck of her renal function. Her electrolytes are within normal range. She is completely asymptomatic. 2. Anemia. Her anemia is related to blood loss. She should continue with oral iron supplement and multivitamin. 3. Hyperphosphatemia. Her phosphorus level is slightly elevated and it is likely to improve over next few days. No intervention is needed at this point. 4. Disposition. From a renal standpoint, the patient can be discharged to home. I will see her in the office next week. We will check her renal profile at that time.
== END 2017-01-20 10:45 | disposition home or self-care (01) | DRG 765 ==
LOC: M LDI 20:37 → M ICU 01-10 22:28 → M MSPAV 01-15 16:45
PROVIDERS: ADMIT Obstetrics & Gynecology; ATTEND Obstetrics & Gynecology
PROC: 3E0DXGC Introduction of Other Therapeutic Substance into Mouth and Pharynx, External Approach (ICD-10-PCS; 2017-01-09)
PROC: 0UT90ZL Resection of Uterus, Supracervical, Open Approach (ICD-10-PCS; 2017-01-10)
PROC: 0UB10ZZ Excision of Left Ovary, Open Approach (ICD-10-PCS; 2017-01-10)
PROC: 0UB60ZZ Excision of Left Fallopian Tube, Open Approach (ICD-10-PCS; 2017-01-10)
PROC: 30233N1 Transfusion of Nonautologous Red Blood Cells into Peripheral Vein, Percutaneous Approach (ICD-10-PCS; 2017-01-10)
PROC: 30233J1 Transfusion of Nonautologous Serum Albumin into Peripheral Vein, Percutaneous Approach (ICD-10-PCS; 2017-01-10)
PROC: 30233K1 Transfusion of Nonautologous Frozen Plasma into Peripheral Vein, Percutaneous Approach (ICD-10-PCS; 2017-01-10)
PROC: 30233R1 Transfusion of Nonautologous Platelets into Peripheral Vein, Percutaneous Approach (ICD-10-PCS; 2017-01-10)
PROC: 10D00Z1 Extraction of Products of Conception, Low, Open Approach (ICD-10-PCS; principal; 2017-01-10 17:31)
PROC: 5A1935Z Respiratory Ventilation, Less than 24 Consecutive Hours (ICD-10-PCS; 2017-01-11)
PROC: 5A1D70Z Performance of Urinary Filtration, Intermittent, Less than 6 Hours Per Day (ICD-10-PCS; 2017-01-14)
PROC: 02H633Z Insertion of Infusion Device into Right Atrium, Percutaneous Approach (ICD-10-PCS; 2017-01-17)
DX: O72.1 Other immediate postpartum hemorrhage (principal); O71.1 Rupture of uterus during labor; D65 Disseminated intravascular coagulation [defibrination syndrome]; J96.01 Acute respiratory failure with hypoxia; N17.9 Acute kidney failure, unspecified; E87.1 Hypo-osmolality and hyponatremia; D62 Acute posthemorrhagic anemia; O99.13 Other diseases of the blood and blood-forming organs and certain disorders involving the immune mechanism complicating the puerperium; O99.354 Diseases of the nervous system complicating childbirth; Z3A.39 39 weeks gestation of pregnancy; G40.909 Epilepsy, unspecified, not intractable, without status epilepticus; Z79.899 Other long term (current) drug therapy; O76 Abnormality in fetal heart rate and rhythm complicating labor and delivery; O69.82X0 Labor and delivery complicated by other cord entanglement, without compression, not applicable or unspecified; N83.8 Other noninflammatory disorders of ovary, fallopian tube and broad ligament; N83.02 Follicular cyst of left ovary; O99.03 Anemia complicating the puerperium; O99.285 Endocrine, nutritional and metabolic diseases complicating the puerperium; O99.53 Diseases of the respiratory system complicating the puerperium; O26.893 Other specified pregnancy related conditions, third trimester; Z37.0 Single live birth

== ENCOUNTER → 2017-01-27 | Outpatient (REF) | payer OTHER ==
[~2017-01-27] MED LIST changes: +COLA100C5 PO; +OXYC1TAB23 PO
[2017-01-27 14:15] LABS: ALBUMIN 3.6 GM/DL (3.2-5.2); BILIRUBIN,TOTAL 0.4 MG/DL (0.2-1.0); CALCIUM LEVEL 8.3 MG/DL (8.5-10.1); CREATININE FOR GFR 1.6 MG/DL (0.55-1.02); GLOMERULAR FILTRATION RATE 37.5 (>58); POTASSIUM SERUM 4.2 MEQ/L (3.5-5.1); TOTAL PROTEIN 7.2 GM/DL (6.4-8.2)
== END ==
LOC: M LAB REF 13:51
PROVIDERS: ATTEND Specialist
DX: O72.1 Other immediate postpartum hemorrhage (principal)

== ENCOUNTER 2017-12-31 07:10 | Emergency (ER) | payer BC, OTHER ==
[2017-12-31] MEDS: KETOROLAC 60 MG/2 ML VIAL (J1885) IM (08:00)
[2017-12-31] MEDS: METOCLOPRAMIDE INJ 10MG/2ML VIAL (J2765) IM (08:35)
== END 2017-12-31 09:27 | disposition home or self-care (01) ==
LOC: M ED 07:10
DX: R51 Headache (principal)
CPT/HCPCS: J1885

== ENCOUNTER → 2018-01-10 | Outpatient (REF) | payer BC ==
[2018-01-10 20:08] LABS: HEMATOCRIT 41.9 % (36.0-47.0); HEMOGLOBIN 13.8 g/dl (12.0-15.5); MEAN CORPUSCULAR HEMOGLOBIN 29.7 pg (27.0-33.0); MEAN CORPUSCULAR HGB CONC 32.9 g/dl (32.0-36.5); MEAN CORPUSCULAR VOLUME 90.1 fl (80.0-96.0); PLATELET COUNT, AUTOMATED 193 10^3/uL (150-450); RED BLOOD COUNT 4.65 10^6/uL (4.00-5.40); RED CELL DISTRIBUTION WIDTH 12.7 % (11.5-14.5); WHITE BLOOD COUNT 10.9 10^3/uL (4.0-10.0)
[2018-01-10 20:15] LABS: ALBUMIN/GLOBULIN RATIO 1.21 (1.00-1.93); ALKALINE PHOSPHATASE 62 U/L (45-117); ALT/SGPT 22 U/L (12-78); ANION GAP 7 MEQ/L (8-16); AST/SGOT 12 U/L (7-37); BILIRUBIN,TOTAL 0.3 MG/DL (0.2-1.0); BLOOD UREA NITROGEN 14 MG/DL (7-18); CALCIUM LEVEL 8.6 MG/DL (8.5-10.1); CARBON DIOXIDE LEVEL 31 MEQ/L (21-32); CHLORIDE LEVEL 104 MEQ/L (98-107); CREATININE FOR GFR 0.82 MG/DL (0.55-1.30); GLOMERULAR FILTRATION RATE > 60.0 (>58); GLUCOSE, FASTING 82 MG/DL (70-100); POTASSIUM SERUM 4.1 MEQ/L (3.5-5.1); SODIUM LEVEL 142 MEQ/L (136-145); TOTAL PROTEIN 7.3 GM/DL (6.4-8.2)
== END ==
LOC: M SFHCADAM 15:54
DX: R51 Headache (principal); N18.2 Chronic kidney disease, stage 2 (mild); H53.2 Diplopia
CPT/HCPCS: 80053

== ENCOUNTER → 2018-02-07 | Outpatient (REF) | payer BC ==
[~2018-02-07] MED LIST changes: +LAMI200T; +NORCOTAB PO
[2018-02-10 00:40] LABS: HPV HYBRID CAPTURE II Negative (Negative)
== END ==
LOC: M LAB REF 13:14
PROVIDERS: ATTEND Specialist
DX: Z12.4 Encounter for screening for malignant neoplasm of cervix (principal)
CPT/HCPCS: 87624; G0123

== ENCOUNTER → 2018-04-24 | Outpatient (CLI) | payer BC ==
[~2018-04-24] MED LIST changes: -BIOT300T PO; +BIOT300T3 PO; +ISOVUE-370 76% 100ML VIAL (Q9967) As Ordered ONE
--- NOTE | 2018-04-25 08:42 | REP ---
CT angiography of the neck with IV contrast: History: Cerebrovascular disease. No comparison study. Technique: 100 mL of intravenous Isovue 370 is administered. Helical scanning is acquired. Multiplanar re-formation and maximal intensity projection images are generated. CT angiographic findings: The aortic arch is unremarkable. The innominate and left subclavian artery origins are well seen and are unremarkable. There is considerable spray artifact from undiluted contrast opacifying the left subclavian and brachiocephalic veins. This produces artifact which obscures the proximal left common carotid artery at its origin. The left common carotid otherwise unremarkable. There is no significant plaquing in the bulb or proximal ICA on the left side. On the right, the common carotid artery is unremarkable. The proximal ICA is widely patent. The mid and distal ICA are tortuous but widely patent. No distal ICA disease is seen. Vertebral arteries are codominant and patent. Impression: No vascular abnormality noted. Haddock artifact obscures visualization of the proximal 2 cm of the left common carotid artery. Otherwise negative. Electronically Signed by Geoffrey Hickman MD 04/25/2018 08:44 A
--- NOTE | 2018-04-25 08:43 | REP ---
CT angiography of the brain with IV contrast: History: Cerebrovascular disease. Technique: 100 mL of intravenous Isovue 370 is administered. Helical scanning is acquired. MPR and MIP images are generated. Surface rendered color 3D images are generated as well. CT angiographic findings: The distal vertebral arteries are patent and symmetric. Basilar artery is unremarkable. Posterior cerebral and superior cerebellar arteries are intact. The distal internal carotid arteries are unremarkable. Anterior and middle cerebral arteries are intact. There is no evidence of james aneurysm or arteriovenous malformation. Dural sinuses are normally opacified and unremarkable. Impression: Unremarkable CT angiography of the brain with IV contrast. Electronically Signed by Geoffrey Hickman MD 04/25/2018 08:44 A
== END ==
LOC: M RAD 16:58
PROVIDERS: ATTEND Surgery Vascular Surgery
DX: I67.9 Cerebrovascular disease, unspecified (principal)
CPT/HCPCS: 70496; 70498; Q9967

== ENCOUNTER → 2019-08-23 | Outpatient (REF) | payer BC ==
[~2019-08-23] MED LIST changes: -BIOT300T3 PO; +BIOT300T8 PO; +HYDR-3715 PO; -ISOVUE-370 76% 100ML VIAL (Q9967) As Ordered ONE; -NORCOTAB PO
[2019-08-23 17:31] LABS: ALBUMIN 4.1 GM/DL (3.2-5.2); ALT/SGPT 23 U/L (12-78); BILIRUBIN,TOTAL 0.3 MG/DL (0.2-1.0); BLOOD UREA NITROGEN 16 MG/DL (7-18); CALCIUM LEVEL 8.9 MG/DL (8.5-10.1); CARBON DIOXIDE LEVEL 30 MEQ/L (21-32); CHLORIDE LEVEL 106 MEQ/L (98-107); CREATININE FOR GFR 0.83 MG/DL (0.55-1.30); FREE T4 1.06 NG/DL (0.76-1.46); GLOMERULAR FILTRATION RATE > 60.0 (>58); GLUCOSE, FASTING 85 MG/DL (70-100); POTASSIUM SERUM 4.3 MEQ/L (3.5-5.1); SODIUM LEVEL 140 MEQ/L (136-145); TOTAL PROTEIN 7.7 GM/DL (6.4-8.2)
[2019-08-23 17:55] LABS: BASO % 0.5 % (0.0-1.0); EOS # 0.1 10^3/uL (0.0-0.5); EOS % 1.5 % (0.0-3.0); HEMATOCRIT 44.6 % (36.0-47.0); HEMOGLOBIN 14.3 g/dl (12.0-15.5); LYMPH # 2.3 10^3/uL (1.5-5.0); LYMPH % 39.1 % (24.0-44.0); MEAN CORPUSCULAR HEMOGLOBIN 28.8 pg (27.0-33.0); MEAN CORPUSCULAR HGB CONC 32.1 g/dl (32.0-36.5); MEAN CORPUSCULAR VOLUME 89.7 fl (80.0-96.0); MONO # 0.5 10^3/uL (0.0-0.8); MONO % 7.5 % (0.0-5.0); NEUTROPHILS % 50.7 % (36.0-66.0); PLATELET COUNT, AUTOMATED 196 10^3/uL (150-450); RED BLOOD COUNT 4.97 10^6/uL (4.00-5.40)
== END ==
LOC: M SFHCADAM 15:30
PROVIDERS: ATTEND Physician Assistant
DX: R53.83 Other fatigue (principal); N18.2 Chronic kidney disease, stage 2 (mild)

== ENCOUNTER → 2020-03-11 | Outpatient (REF) | payer BC ==
[2020-03-11 18:19] LABS: HEMATOCRIT 43.9 % (36.0-47.0); HEMOGLOBIN 14.1 g/dl (12.0-15.5); MEAN CORPUSCULAR HEMOGLOBIN 29.1 pg (27.0-33.0); MEAN CORPUSCULAR HGB CONC 32.1 g/dl (32.0-36.5); MEAN CORPUSCULAR VOLUME 90.7 fl (80.0-96.0); PLATELET COUNT, AUTOMATED 175 10^3/uL (150-450); RED BLOOD COUNT 4.84 10^6/uL (4.00-5.40); WHITE BLOOD COUNT 5.9 10^3/uL (4.0-10.0)
[2020-03-11 18:52] LABS: ALBUMIN 3.9 GM/DL (3.2-5.2); ALT/SGPT 17 U/L (12-78); BILIRUBIN,TOTAL 0.7 MG/DL (0.2-1.0); BLOOD UREA NITROGEN 16 MG/DL (7-18); CALCIUM LEVEL 8.9 MG/DL (8.5-10.1); CARBON DIOXIDE LEVEL 35 MEQ/L (21-32); CHLORIDE LEVEL 102 MEQ/L (98-107); CREATININE FOR GFR 0.95 MG/DL (0.55-1.30); FREE T4 0.94 NG/DL (0.76-1.46); GLOMERULAR FILTRATION RATE > 60.0 (>58); GLUCOSE, FASTING 88 MG/DL (70-100); POTASSIUM SERUM 3.8 MEQ/L (3.5-5.1); SODIUM LEVEL 138 MEQ/L (136-145); TOTAL PROTEIN 6.9 GM/DL (6.4-8.2)
== END ==
LOC: M SFHCADAM 14:06
PROVIDERS: ATTEND Physician Assistant
DX: R00.2 Palpitations (principal)

== ENCOUNTER → 2020-07-28 | Outpatient (REF) | payer BC | LOC: M SFHCWAGY 18:42 | PROVIDERS: ATTEND Specialist | DX: Z12.4 Encounter for screening for malignant neoplasm of cervix (principal) | CPT/HCPCS: 87624; G0123 ==

== ENCOUNTER → 2021-01-02 | Outpatient (CLI) | payer BC | LOC: M LABSMTC 12:09 | PROVIDERS: ATTEND Anesthesiology | DX: Z01.812 Encounter for preprocedural laboratory examination (principal); Z20.822 Contact with and (suspected) exposure to COVID-19 ==

== ENCOUNTER → 2021-01-02 | Outpatient (REF) | payer BC ==
[2021-01-02 13:35] LABS: HEMOGLOBIN 14.9 g/dl (12.0-15.5); MEAN CORPUSCULAR HGB CONC 33.1 g/dl (32.0-36.5); MEAN CORPUSCULAR VOLUME 90.5 fl (80.0-96.0); PLATELET COUNT, AUTOMATED 183 10^3/uL (150-450); RED BLOOD COUNT 4.97 10^6/uL (4.00-5.40); WHITE BLOOD COUNT 4.8 10^3/uL (4.0-10.0)
[2021-01-02 13:54] LABS: INR 0.94
[2021-01-02 13:55] LABS: PARTIAL THROMBOPLASTIN TIME 33.3 SECONDS (25.9-37.0)
[2021-01-02 14:23] LABS: ALT/SGPT 20 U/L (12-78); BILIRUBIN,TOTAL 0.3 MG/DL (0.2-1.0); BLOOD UREA NITROGEN 14 MG/DL (7-18); CALCIUM LEVEL 8.8 MG/DL (8.5-10.1); CARBON DIOXIDE LEVEL 29 MEQ/L (21-32); CHLORIDE LEVEL 104 MEQ/L (98-107); CREATININE FOR GFR 0.81 MG/DL (0.55-1.30); GLOMERULAR FILTRATION RATE > 60.0 (>58); GLUCOSE, FASTING 86 MG/DL (70-100); POTASSIUM SERUM 4.3 MEQ/L (3.5-5.1); SODIUM LEVEL 139 MEQ/L (136-145); TOTAL PROTEIN 7.3 GM/DL (6.4-8.2)
== END ==
LOC: M SFHCADAM 11:03
PROVIDERS: ATTEND Physician Assistant
DX: Z01.818 Encounter for other preprocedural examination (principal)

== ENCOUNTER 2021-01-06 06:18 | Observation (INO) | payer BC ==
[~2021-01-06] VITALS: Ht 160 cm; Wt 59.4 kg
[2021-01-06] MEDS ORDERED: LR 1,000 ML IV ONE (06:20)
[2021-01-06] MEDS ORDERED: ceFAZolin SOD 2 GM in IV 1 EA IV ONE (06:20)
--- OUTSIDE RECORDS SUMMARY | 2021-01-06 06:22 | CCD ---
Author Author [facility] Organization [facility] Address Unknown Phone Unavailable Care Team Providers Care Sheriff Detective Name Role Phone Ed Jonna Unavailable PROBLEMS Type Condition ICD9-CM Code [id number] Code Onset Dates Condition S tatus W/U Status Risk SNOMED Code Notes Problem Stage 2 chronic kidney disease N18.2 Active confir med 095428627 Problem Nonintractable epilepsy with out status epilepticus, unspecified epilepsy type G40.909 Active confirmed 303443182 Problem Cervical high risk HPV (human papillomavirus) test positiv e 795.05 Active confirmed 494502153 Problem Mild dysplasia of cervix 622.11 Active confirmed 295675569 Problem Molluscum contagiosum 078.0 Active confirmed 21180193 ALLERGIES No Known Allergies ENCOUNTERS from 1973 to 2020-12-05 Encounter Location Date Provider Diagnosis [id number] [place] [address] Nov, Jonna Ward IMMUNIZATIONS Vaccine Route Administration Date Status TDAP Pharmacy Given Unknown Jan 11, 2017 Administered SOCIAL HISTORY Tobacco Use: Social History Observation Description Date Details (start date - stop date) never smoker Sex Assigned At : Social History Observation Description Sex Assigned At Unknown Audit Question Answer Notes Total Score: 1 Interpretation: Alcohol Education Sexual Hx: Question Answer Notes Had sex in the last 12 months (vaginal, oral, or anal)? Yes LMP: hyster Have you ever had an STD? No with Men only Use protection? No Drug and Alcohol Question Answer Notes Total Score: 0 Interpretation: No problems reported Alcohol Screening: Question Answer Notes Did you have a drink containing alcohol in the past year? Ye s Points 1 Interpretation Negative How often did you have six or more drinks on one occas ion in the past year? Never (0 points) How many drinks did you have on a typica l day when you were drinking in the past year? 1 or 2 (0 points) How often did you have a drink containing alcohol in t he past year? Monthly or less (1 point) Tobacco Use: Question Answer Notes Are you a: never smoker REASON FOR REFERRAL No Information VITAL SIGNS No information MEDICATIONS Medication SIG (Take, Route, Frequency, Duration) Notes Start Da te End Date Status Multivitamins OTC 1 tab(s) Orally once a day Active LaMICtal XR 200 MG TAKE ONE TABLET BY MOUTH AT BEDTIME for 90 day(s) Active Biotin 800 MCG 1 tablet Orally Once a day Active Vitamin B Complex - 1 tab Orally Daily Active PROCEDURES No Information RESULTS No Results REASON FOR VISIT Holter Monitor MEDICAL (GENERAL) HISTORY Type Description Date Medical History hx epilepsy since 10 years o ld - Seizure free on Lamotrigine - Follows with Dr. Drake ([facility]) - 2019 - He asked us to take over her prescription since she has been stable for so long Medical History depression/anxiety Medical History 12/2016 - Emergent with subsequent Uterine rupture, subsequent DIC, required multiple transfusions, developed oliguric ATN requiring dialysis Medical History Follows with Dr. Cisneros ([facility]rology) - REnal function returned to baseline Medical History Excercise induced Vision Dis tubance/Diplopia that started after she went scuba diving in 2015 - Wkup by Neurology, Opthalmology and Neuro Opthalmology unrevealing. Evaluated by Vascular in [place] with CTA in 2018 which was normal Surgical History Repair Fx R ankle 12/2010 Surgical History Colposcopy/ECC -Dr Cuadra 03/29/12 Surgical History D&C 09/2014 Surgical History C section 01/10/17 Surgical History partial hysterectomy - still has cervix and one ovary 01/10/17 Hospitalization History Surgical related Hospitalization History Childbirth Goals Section No Information Health Concerns No Information MEDICAL EQUIPMENT No Information MENTAL STATUS No Information FUNCTIONAL STATUS No Information ASSESSMENTS No Information PLAN OF TREATMENT Next Appt Details Provider Name:Jonna Ward, 2020-12 10:30:00 AM[facility] [place], [address], Provider Name:Taisha Monterroso Jaquansarah, 20 11-01-22 10:00:00 AM, [address] [facility], , [place], [address], Insurance Providers Payer Name Payer Address Payer Phone Insured Name Patient Relati onship to Insured Coverage Start Date Coverage End Date BCBS [facility] [id number] [facility] [address] [place] [address] MANDI CAMILO [id number] [phone]
--- OUTSIDE RECORDS SUMMARY | 2021-01-06 06:22 | CCD ---
Author Author [facility] Organization [facility] Address Unknown Phone Unavailable Care Team Providers Care Equipment Operator Name Role Phone Ed Jonna Unavailable PROBLEMS Type Condition ICD9-CM Code UWW39-UJ Code Onset Dates Condition S tatus W/U Status Risk SNOMED Code Notes Problem Stage 2 chronic kidney disease N18.2 Active confir med 957584395 Problem Nonintractable epilepsy with out status epilepticus, unspecified epilepsy type G40.909 Active confirmed 150542104 Problem Cervical high risk HPV (human papillomavirus) test positiv e 795.05 Active confirmed 114193136 Problem Mild dysplasia of cervix 622.11 Active confirmed 669622192 Problem Molluscum contagiosum 078.0 Active confirmed 74155592 ALLERGIES No Known Allergies ENCOUNTERS from 1973 to 2020-12-05 Encounter Location Date Provider Diagnosis [id number] [place] [address] Nov, 2020 Jonna Ward IMMUNIZATIONS Vaccine Route Administration Date [...] Information RESULTS No Results REASON FOR VISIT Heart molter MEDICAL (GENERAL) HISTORY Type Description Date Medical History hx epilepsy since 10 years o ld - Seizure free on Lamotrigine - Follows with Dr. Drake ([facility]) - 2019 - He asked us to take over her prescription since she has been stable for so long Medical History depression/anxiety Medical History 12/2016 - Emergent with subsequent Uterine rupture, subsequent DIC, required multiple transfusions, developed oliguric ATN requiring dialysis Medical History Follows with Dr. Cisneros ([facility]) - REnal function returned to baseline Medical History Excercise induced Vision Dis tubance/Diplopia that started after she went scuba diving in 2015 - Wkup by Neurology, Opthalmology and Neuro Opthalmology unrevealing. Evaluated by Vascular in [place] with CTA in 2018 which was normal [...] Details Provider Name:Jonna Ward, 2020-12 10:30:00 AM, [address] [facility] , [place], [address], Provider Name:Taisha Monterroso Jaquansarah, 20 11-01-22 10:00:00 AM, [address] [facility], , [place], [address], Insurance Providers Payer Name Payer Address Payer Phone Insured Name Patient Relati onship to Insured Coverage Start Date Coverage End Date [facility]BS [facility] [id number] [facility] [place] [place] [address] MANDI CAMILO [id number]
--- OUTSIDE RECORDS SUMMARY | 2021-01-06 06:22 | CCD | Continuity of Care Document ---
Author Author Elle ALMAZAN DO Organization Unknown Address [address] [place] [address] Phone [phone] Care Team Providers Care Glassware Finisher Name Role Phone Miri Huber M.D. AUTM [phone] Fransisca Casillas M.D. AUTM [phone] AUTM Unavailable Jonna Ward P.A.-C. AUTM [phone] [employer] AUTM [phone] Problems Active Problems Provider Date Encounter for supervision of other normal , f irst trimester Joshua Villalobos MD Onset: 06/25/2016 IUD removal awaited Joshua Villalobos MD Onset: 06/25/2016 Amenorrhea Carolyn Ghosh, MSN, CNM Onse t: 06/25/2016 Disorder of menstruation Joshua Villalobos MD Onset: 06/26/19 17 Incomplete spontaneous without complication Joshua hartman MD Onset: 06/25/2016 Missed miscarriage Joshua Villalobos MD Onset: 06/25/2016 Amenorrhea Joshua Villalobos MD Onset: 06/25/2016 Gynecologic examination Joshua Villalobos MD Onset: 7 Heartburn Brandin Merrill MD Onset: 06/25/2016 Abdominal pain Brandin Merrill MD Onset: 06/25/2016 Indigestion Brandin Merrill MD Onset: 06/25/2016 Gastroduodenitis Brandin Merrill MD Onset: 06/25/2016 Flatulence, eructation and gas pain Brandin Merrill MD Onse t: 06/25/2016 Nausea Brandin Merrill MD Onset: 06/25/2016 Encounter for routine follow-up Joshua Villalobos MD Onset: 03/01/2017 Social History Type Date Description Comments Sex Female Smokeless Tobacco Never Used Smokeless Tobacco ETOH Use Denies alcohol use ETOH Use Occasionally consumes alcohol Tobacco Use Start: Unknown Patient has never smoked Recreational Drug Use Denies Drug Use Smoking Status Reviewed: 12/18/20 Patient has never smoked Allergies and adverse reactions Description No Known Drug Allergies Medications Active Medications SIG Qnty Indications Ordering Provide r Date Lamictal XR 200mg Tablets ER 24HR 1 every day Unknown Biotin 5000 Unknown Multi Vitamin Unknown Immunizations Description No Information Available Vital Signs Date Vital Result Comment 12/17/2020 3:44pm BP Systolic 108 mmHg BP Diastolic 62 mmHg Heart Rate 72 /min Respiratory Rate 14 /min Body Temperature 98.2 F Height 63 inches 5'3" Weight 135.00 lb BMI (Body Mass Index) 23.9 kg/m2 [place] Body Weight 115 lb Weight 61.236 kg BSA (Body Surface Area) 1.64 m2 07/16/2020 11:09am BP Systolic 110 mmHg BP Diastolic 64 mmHg Heart Rate 74 /min Respiratory Rate 14 /min Height 63 inches 5'3" Weight 134.00 lb BMI (Body Mass Index) 23.7 kg/m2 [place] Body Weight 115 lb Weight 60.782 kg BSA (Body Surface Area) 1.63 m2 Results Description No Information Available Procedures Date Code Description Status 07/16/2020 57425 Office/Outpatient New Moderate M DM 45-59 Minutes Completed Medical Devices Description No Information Available Encounters Type Date Location Provider Dx Diagnosis Office Visit 07/16/2020 10:45a [facility] Plastic Surgery Alisson Almazan DO N62 Hypertrophy of breast N64.81 Ptosis of breast Assessments Date Code Description Provider 12/17/2020 N62 Hypertrophy of breast Alisson Pale y, DO 12/17/2020 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
--- OUTSIDE RECORDS SUMMARY | 2021-01-06 06:22 | CCD | Continuity of Care Document ---
Author Author Elle ALMAZAN DO Organization Unknown Address [address] [place] [address] Phone [phone] Care Team Providers Care Facing Grinder Name Role Phone Miri Huber M.D. AUTM [phone] Fransisca Casillas M.D. AUTM [phone] AUTM Unavailable Jonna Ward P.A.-C. AUTM [employer] AUTM [phone] Problems Active Problems Provider Date Encounter for [...] Use Denies Drug Use Smoking Status Reviewed: 07/17/20 Patient has never smoked Allergies and adverse reactions Description No Known Drug Allergies Medications Active Medications SIG Qnty Indications Ordering Provide r Date Lamictal XR 200mg Tablets ER 24HR 1 every day Unknown Biotin 5000 Unknown Multi Vitamin Unknown Immunizations Description No Information Available Vital Signs Date Vital Result Comment 07/16/2020 11:09am BP Systolic 110 mmHg BP Diastolic 64 mmHg Heart Rate 74 /min Respiratory Rate 14 /min Height 63 inches 5'3" Weight 134.00 lb BMI (Body Mass Index) 23.7 kg/m2 [place] Body Weight 115 lb Weight 60.782 kg BSA (Body Surface Area) 1.63 m2 02/07/2018 8:48am BP Systolic 116 mmHg BP Diastolic 70 mmHg Height 63 inches 5'3" Weight 143.00 lb BMI (Body Mass Index) 25.3 kg/m2 [place] Body Weight 115 lb Weight 64.865 kg BSA (Body Surface Area) 1.68 m2 Results Description No Information Available Procedures Date Code Description Status 07/16/2020 89000 Office/Outpatient New Moderate M DM 45-59 Minutes Completed Medical Devices Description No Information Available Encounters Type Date Location Provider Dx Diagnosis Office Visit 07/16/2020 10:45a [facility] Plastic Surgery Alisson Almazan DO N62 Hypertrophy of breast N64.81 Ptosis of breast Assessments Date Code Description Provider 07/16/2020 N62 Hypertrophy of breast Alisson Pale мария DO 07/16/2020 N64.81 Ptosis of breast Alisson Norah, DO Plan of Treatment Future Appointment(s):* 01/06/2021 7:30 am - Alisson Almazan DO at [facility] Plastic Surgery * 12/24/2020 1:00 pm - Alisson Almazan DO at [facility] Plastic [facility] Functional Status Description No Information Available Mental Status Description No Information Available Referrals Description No Information Available
--- OUTSIDE RECORDS SUMMARY | 2021-01-06 06:22 | CCD ---
Author Author [facility] Organization [facility] Address Unknown Phone Unavailable Care Team Providers Care Operator Control Room Name Role Phone Kenyatta Brown MD Unavailable Unavailable Kenyatta Brown MD Unavailable Unavailable Kenyatta Brown MD Unavailable Unavailable Kenyatta Brown MD Unavailable Unavailable Kenyatta Brown MD Unavailable Unavailable Kenyatta Brown MD Unavailable Unavailable Kenyatta Brown MD Unavailable Unavailable Kenyatta Brown MD Unavailable Unavailable Kenyatta Brown MD Unavailable Unavailable Kenyatta Brown MD Unavailable Unavailable Kenyatta Brown MD Unavailable Unavailable Kenyatta Brown MD Unavailable Unavailable Kenyatta Brown MD Unavailable Unavailable Kenyatta Brown MD Unavailable Unavailable Kenyatta Brown MD Unavailable Unavailable Kenyatta Brown MD Unavailable Unavailable Kenyatta Brown MD Unavailable Unavailable Kenyatta Brown MD Unavailable Unavailable Kenyatta Brown MD Unavailable Unavailable Kenyatta Brown MD Unavailable Unavailable Kenyatta Brown MD Unavailable Unavailable Kenyatta Brown MD Unavailable Unavailable Kenyatta Brown MD Unavailable Unavailable Kenyatta Brown MD Unavailable Unavailable Kenyatta Brown MD Unavailable Unavailable Kenyatta Brown MD Unavailable Unavailable Kenyatta Brown MD Unavailable Unavailable Kenyatta Brown MD Unavailable Unavailable Kenyatta Brown MD Unavailable Unavailable Kenyatta Brown MD Unavailable Unavailable Kenyatta Brown MD Unavailable Unavailable Kenyatta Brown MD Unavailable Unavailable Kenyatta Brown MD Unavailable Unavailable Kenyatta Brown MD Unavailable Unavailable Kenyatta Brown MD Unavailable Unavailable Kenyatta Brown MD Unavailable Unavailable Kenyatta Brown MD Unavailable Unavailable Kenyatta Brown MD Unavailable Unavailable Kenyatta Brown MD Unavailable Unavailable Kenyatta Brown MD Unavailable Unavailable Kenyatta Brown MD Unavailable Unavailable Kenyatta Brown MD Unavailable Unavailable Kenyatta Brown MD Unavailable Unavailable Kenyatta Brown MD Unavailable Unavailable Kenyatta Brown MD Unavailable Unavailable Kenyatta Brown MD Unavailable Unavailable Kenyatta Brown MD Unavailable Unavailable Kenyatta Brown MD Unavailable Unavailable Kenyatta Brown MD Unavailable Unavailable Kenyatta Brown MD Unavailable Unavailable Kenyatta Brown MD Unavailable Unavailable Kenyatta Brown MD Unavailable Unavailable Kenyatta Brown MD Unavailable Unavailable Kenyatta Brown MD Unavailable Unavailable Kenyatta Brown MD Unavailable Unavailable Kenyatta Brown MD Unavailable Unavailable Kenyatta Brown MD Unavailable Unavailable Kenyatta Brown MD Unavailable Unavailable Kenyatta Brown MD Unavailable Unavailable Kenyatta Brown MD Unavailable Unavailable Kenyatta Brown MD Unavailable Unavailable Kenyatta Brown MD Unavailable Unavailable Kenyatta Brown MD Unavailable Unavailable Kenyatta Brown MD Unavailable Unavailable Kenyatta Brown MD Unavailable Unavailable Kenyatta Brown MD Unavailable Unavailable Kenyatta Brown MD Unavailable Unavailable Kenyatta Brown MD Unavailable Unavailable Kenyatta Brown MD Unavailable Unavailable Kenyatta Brown MD Unavailable Unavailable Kenyatta Brown MD Unavailable Unavailable Kenyatta Brown MD Unavailable Unavailable Kenyatta Brown MD Unavailable Unavailable Kenyatta Brown MD Unavailable Unavailable Kenyatta Brown MD Unavailable Unavailable Kenyatta Brown MD Unavailable Unavailable Kenyatta Brown MD Unavailable Unavailable Kenyatta Brown MD Unavailable Unavailable Kenyatta Brown MD Unavailable Unavailable Kenyatta Brown MD Unavailable Unavailable Kenyatta Brown MD Unavailable Unavailable Kenyatta Brown MD Unavailable Unavailable Kenyatta Brown MD Unavailable Unavailable Kenyatta Brown MD Unavailable Unavailable Kenyatta Brown MD Unavailable Unavailable Kenyatta Brown MD Unavailable Unavailable Kenyatta Brown MD Unavailable Unavailable Kenyatta Brown MD Unavailable Unavailable Kenyatta Brown MD Unavailable Unavailable Stephanie, Kenyatta Roland MD Unavailable Unavailable Kenyatta Brown MD Unavailable Unavailable Stephanie, Kenyatta Roland MD Unavailable Unavailable Stephanie, Kenyatta Roland MD Unavailable Unavailable LETTIERE, A VÍCTOR PA Unavailable Unavailable LETTIERE, A VÍCTOR PA Unavailable Unavailable LETTIERE, A VÍCTOR PA Unavailable Unavailable LETTIERE, A VÍCTOR PA Unavailable Unavailable LETTIERE, A VÍCTOR PA Unavailable Unavailable LETTIERE, A VÍCTOR PA Unavailable Unavailable LETTIERE, A VÍCTOR PA Unavailable Unavailable LETTIERE, A VÍCTOR PA Unavailable Unavailable LETTIERE, A VÍCTOR PA Unavailable Unavailable LETTIERE, A VÍCTOR PA Unavailable Unavailable LETTIERE, A VÍCTOR PA Unavailable Unavailable LETTIERE, A VÍCTOR PA Unavailable Unavailable LETTIERE, A VÍCTOR PA Unavailable Unavailable LETTIERE, A VÍCTOR PA Unavailable Unavailable LETTIERE, A VÍCTOR PA Unavailable Unavailable LETTIERE, A VÍCTOR PA Unavailable Unavailable LETTIERE, A VÍCTOR PA Unavailable Unavailable LETTIERE, A VÍCTOR PA Unavailable Unavailable LETTIERE, A VÍCTOR PA Unavailable Unavailable LETTIERE, A VÍCTOR PA Unavailable Unavailable LETTIERE, A VÍCTOR PA Unavailable Unavailable LETTIERE, A VÍCTOR PA Unavailable Unavailable LETTIERE, A VÍCTOR PA Unavailable Unavailable LETTIERE, A VÍCTOR PA Unavailable Unavailable LETTIERE, A VÍCTOR PA Unavailable Unavailable LETTIERE, A VÍCTOR PA Unavailable Unavailable LETTIERE, A VÍCTOR PA Unavailable Unavailable LETTIERE, A VÍCTOR PA Unavailable Unavailable LETTIERE, A VÍCTOR PA Unavailable Unavailable LETTIERE, A VÍCTOR PA Unavailable Unavailable LETTIERE, A VÍCTOR PA Unavailable Unavailable DELIA, E EDY DO Unavailable Unavailable DELIA, E EDY DO Unavailable Unavailable DELIA, E EDY DO Unavailable Unavailable DELIA, E EDY DO Unavailable Unavailable DELIA, E EDY DO Unavailable Unavailable DELIA, E EDY DO Unavailable Unavailable DELIA, E EDY DO Unavailable Unavailable DELIA, E EDY DO Unavailable Unavailable DELIA, E EDY DO Unavailable Unavailable DELIA, E EDY DO Unavailable Unavailable DELIA, E EDY DO Unavailable Unavailable DELIA, E EDY DO Unavailable Unavailable DELIA, E EDY DO Unavailable Unavailable DELIA, E EDY DO Unavailable Unavailable DELIA, E EDY DO Unavailable Unavailable DELIA, E EDY DO Unavailable Unavailable DELIA, E EDY DO Unavailable Unavailable DELIA, E EDY DO Unavailable Unavailable DELIA, E EDY DO Unavailable Unavailable DELIA, E EDY DO Unavailable Unavailable DELIA, E EDY DO Unavailable Unavailable DELIA, E EDY DO Unavailable Unavailable Mesfin Thrasher MD Unavailable Unavailable Mesfin Thrasher MD Unavailable Unavailable Mesfin Thrasher MD Unavailable Unavailable Mesfin Thrasher MD Unavailable Unavailable Mesfin Thrasher MD Unavailable Unavailable Mesfin Thrasher MD Unavailable Unavailable Mesfin Thrasher MD Unavailable Unavailable Mesfin Thrasher MD Unavailable Unavailable Mesfin Thrasher MD Unavailable Unavailable Mesfin Thrasher MD Unavailable Unavailable Mesfin Thrasher MD Unavailable Unavailable Mesfin Thrasher MD Unavailable Unavailable Mesfin Thrasher MD Unavailable Unavailable Mesfin Thrasher MD Unavailable Unavailable Mesfin Thrasher MD Unavailable Unavailable Mesfin Thrasher MD Unavailable Unavailable Mesfin Thrasher MD Unavailable Unavailable Mesfin Thrasher MD Unavailable Unavailable Mesfin Thrasher MD Unavailable Unavailable Mesfin Thrasher MD Unavailable Unavailable Mesfin Thrasher MD Unavailable Unavailable Mesfin Thrasher MD Unavailable Unavailable Mesfin Thrasher MD Unavailable Unavailable Mesfin Thrasher MD Unavailable Unavailable Mesfin Thrasher MD Unavailable Unavailable Mesfin Thrasher MD Unavailable Unavailable Mesfin Thrasher MD Unavailable Unavailable Mesfin Thrasher MD Unavailable Unavailable Mesfin Thrasher MD Unavailable Unavailable Mesfin Thrasher MD Unavailable Unavailable Mesfin Thrasher MD Unavailable Unavailable Mesfin Thrasher MD Unavailable Unavailable Mesfin Thrasher MD Unavailable Unavailable Mesfin Thrasher MD Unavailable Unavailable Mesfin Thrasher MD Unavailable Unavailable Mesfin Thrasher MD Unavailable Unavailable Mesfin Thrasher MD Unavailable Unavailable Mesfin Thrasher MD Unavailable Unavailable Mesfin Thrasher MD Unavailable Unavailable Mesfin Thrasher MD Unavailable Unavailable Mesfin Thrasher MD Unavailable Unavailable Mesfin Thrasher MD Unavailable Unavailable Mesfin Thrasher MD Unavailable Unavailable Mesfin Thrasher MD Unavailable Unavailable Mesfin Thrasher MD Unavailable Unavailable Mesfin Thrasher MD Unavailable Unavailable Mesfin Thrasher MD Unavailable Unavailable Slezka, Vojtech MD Unavailable Unavailable Slezka, Vojtech MD Unavailable Unavailable Slezka, Vojtech MD Unavailable Unavailable Slezka, Vojtech MD Unavailable Unavailable Slezka, Vojtech MD Unavailable Unavailable Slezka, Vojtech MD Unavailable Unavailable Slezka, Vojtech MD Unavailable Unavailable Slezka, Vojtech MD Unavailable Unavailable Slezka, Vojtech MD Unavailable Unavailable Slezka, Vojtech MD Unavailable Unavailable Slezka, Vojtech MD Unavailable Unavailable Slezka, Vojtech MD Unavailable Unavailable Re-disclosure Warning The records that you are about to access may contain information from federally-assisted alcohol or drug abuse programs. If such information is present, then the following federally mandated warning applies: This information has been disclosed to you from records protected by federal confidentiality rules (42 CFR part 2). The federal rules prohibit you from making any further disclosure of this information unless further disclosure is expressly permitted by the written consent of the person to whom it pertains or as otherwise permitted by 42 CFR part 2. A general authorization for the release of medical or other information is NOT sufficient for this purpose. The Federal rules restrict any use of the information to criminally investigate or prosecute any alcohol or drug abuse patient.The records that you are about to access may contain highly sensitive health information, the redisclosure of which is protected by Article 27-F of the [facility] Public Health law. If you continue you may have access to information: Regarding HIV / AIDS; Provided by facilities licensed or operated by the [facility] Office of Mental Health; or Provided by the [facility] Office for People With Developmental Disabilities. If such information is present, then the following [facility] mandated warning applies: This information has been disclosed to you from confidential records which are protected by state law. State law prohibits you from making any further disclosure of this information without the specific written consent of the person to whom it pertains, or as otherwise permitted by law. Any unauthorized further disclosure in violation of state law may result in a fine or senior care sentence or both. A general authorization for the release of medical or other information is NOT sufficient authorization for further disc losure. Allergies and Adverse Reactions Type Description Substance Reaction Status Data Source(s ) Allergy to substance Allergy to substance Allergy to substance VANNA ([facility]) Allergy to substance Allergy to substance Allergy to substance VANNA ([facility]) Family History Family Member Name Family Member Gender Family Member Status Date o f Status Description Data Source(s) Unknown Unknown Problem MEDENT ([facility]) Unknown Unknown Problem MEDENT ([facility]) Encounters Encounter Providers Location Date Indications Data Source(s ) Outpatient KEISHA-SJP 12/20/2020 01:16:11 PM EDT [facility] Outpatient Referrer: Mesfin TATUMCT-SJP.SYR 11/21 09:25:36 AM EDT - 12/09/2020 10:14:09 AM EDT [facility] [place] [address] [address] 12/05/2020 12:00:00 AM EDT eCW1 ([facility]) Outpatient KEISHA-SJP.KANNAN 12/02/2020 12:00:00 AM EDT [facility] [place] [address] [address] 11/27/2020 12:00:00 AM EDT eCW1 ([facility]) [place] [address] [address] 09/22/2020 12:00:00 AM EDT eCW1 ([facility]) Outpatient Attender: VÍCTOR leiva 09/17/2020 05:10:00 PM EDT MEDENT ([facility]) [place] [address] [address] 07/28/2020 12:00:00 AM EDT eCW1 ([facility]) [place] [address] [address] 07/24/2020 12:00:00 AM EDT eCW1 ([facility]) Outpatient Attender: EDY Rivas/Jolie/Ever/Edith gastelum 07/16/2020 10:45:00 AM EDT MEDENT ([facility]) Luan Brown MD: [address] [place] [address], Ph. Attender: Luan Brown MD [facility] 06/05/2020 12:00:00 AM EDT ALBA ([facility]) Luan Brown MD: [address] [place] [address], Ph. Attender: Luan Brown MD [facility] Medical 05/07/2020 12:00:00 AM EDT ALBA ([facility]) Luan Brown MD: [address] [place] [address], Ph. Attender: Luan Brown MD [facility] Medical 05/07/2020 12:00:00 AM EDT ALBA ([facility]) [place] [address] [address] 03/31/2020 12:00:00 AM EST eCW1 ([facility]) [place] [address] [address] 03/12/2020 12:00:00 AM EST eCW1 ([facility]) Immunizations Vaccine Date Status Description Data Source(s) COVID-19, mRNA, LNP-S, PF, 100 mcg/0.5 mL dose 06/05/2020 11 :36:31 AM EDT completed 10.5 mL ALBA ([facility]) COVID-19 VACCINE Moderna 06/05/2020 12:00:00 AM EDT completed NYSIIS Vaccine Series Complete: YESThis Data wa s Submitted to [facility] Via NYSIIS. COVID-19, mRNA, LNP-S, PF, 100 mcg/0.5 mL dose 05/07/2020 05 :33:38 PM EDT completed 10.5 mL ALBA ([facility]) COVID-19, mRNA, LNP-S, PF, 100 mcg/0.5 mL dose 05/07/2020 05 :33:38 PM EDT completed .5 mL VANNA ([facility]) COVID-19 VACCINE Moderna 05/07/2020 12:00:00 AM EDT completed NYSIIS Vaccine Series Complete: NOThis Data was Submitted to [facility] Via OneID. Medications Medication Brand Name Start Date Product Form Dose Route Admi nistrative Instructions Pharmacy Instructions Status Indications Reaction Description Data Source(s) 24 HR lamotrigine 200 MG Extended Release Oral Tablet LAMOTR IGINE 04/26/2020 12:00:00 AM EST tablet extended release 24hr 90 SUSAN E ONE TABLET BY MOUTH AT BEDTIME TAKE ONE TABLET BY MOUTH AT BEDTIME SOLD: 04/29/2020 [facility] 200 mg 01/24/2020 12:00:00 AM EST tablet extended release 24hr 90 TAKE ONE TABLET BY MOUTH AT BEDTIME TAKE ONE TABLET BY MOUTH AT BEDTIME SOLD: 01/28/2020 [facility] Insurance Providers Payer name Policy type / Coverage type Policy ID Covered green party ID Covered green party's relationship to hugo Policy Hugo Plan Information Blue Cross Blue Shield P [id number] SELF [id number] POMCO [id number] SP [id number] POMCO U [id number] Self [id number] POMCO [id number] SP [id number] [id number] SP [id number] Pomco F [id number] SELF [id number] POMCO [id number] SP [id number] EXCELLUS H [id number] Unkn [id number] D Excellus BCBS Dental P [id number] S [id number] [place] P[place] 302/307 [id number] [id number] EXCELLUS BCBS [id number] Unk YND [id number] Blue Cross Blue Shield P [id number] SPOUSE [id number] Blue Cross Blue Shield P [id number] SELF [id number] ANSI-Commercial [id number] ANSI-Commercial [id number] [place] P[place] 302/307 [id number] BCBS/Excellus Commercial [id number] Family Dependent [id number] [employer] BCBS CHP P [id number] S [id number] Self Pay P [id number] O [id number] [facility] [id number] SP [id number] [facility] (O) [id number] Self [id number] [facility] PPO O [id number] S [id number] MEDICAID [id number] SP [id number] [facility] (O) [id number] Self [id number] Sliding Fee Scale P [id number] S [id number] [facility] (HMO) [id number] Se lf [facility] Commercial [id number] Self VERNELL INS [id number] SP [id number] [employer]LL [employer]URANCE P [id number] S [id number] VERNELL INS [id number] SP [id number] Medicaid Dental O [id number] S [id number] D Managed [facility] O [id number] S [id number] SELF PAY UNAVAILABLE UNAVAILA BLE [place] PPO 302/307 [id number] O BLUE [id number] SP [id number] [place] PPO 302/307 [id number] ANSI-Commercial [id number] ANSI-Commercial [id number] [facility] PPO 302/307 [id number] ANSI-Commercial [id number] ANSI-Commercial [id number] ANSI-Commercial [id number] ANSI-Commercial [id number] [facility] ([facility]) [id number] Family Dependent [id number] ANSI-Commercial [id number] [facility] B [id number] P [id number] ANSI-Commercial [id number] Problems, Conditions, and Diagnoses No Information Surgeries/Procedures Procedure Description Date Indications Data Source(s) OFFICE OUTPATIENT VISIT 15 MINUTES 09/17/2020 12:00:00 AM EDT MEDENT ([facility]) OFFICE OUTPATIENT NEW 45 MINUTES 07/16/2020 12:00:00 A M EDT MEDENT ([facility] ) Results ID Date Data Source [id number] 12/20/2020 01:10:54 PM EDT [facility] Name Value Range Interpretation Code Description Data Nathalie rce(s) Supporting Document(s) &PDF [facility] QUREWy8zMxSXJyNb40/YGWwmTBTnx5RoZNhdLZb2VYreNGUvQ6NaiVqbEYJNMWHDYmRLIZsLOrtDRFHu vci [file] /5+HxBV++f//chart collector+001xJLVzY7V3UBn+XtY3PhPW/qDNL0QSq+n//61iEHuEYZhjYE3ezF4K7C27zire QFPo2nN3Xq+BAr0+J/+lQwX8f/8Hg3/XEOV9q3OQbJ wTN3RRV6nXb/pwI78diY6cRPFBDI5TDO6MBE6cl5IqRDLyICgdmaGzYkiHJjDkJFEev4JqNLj4PU1HOE RxKSrzMN2LH1AeWRX0N5F0LzQ7gVLnJD5yD6TfNuXoBE2vgNs1B8QmiRNQWDRVp94bd37gjnHbBG2Lg9 tdpwPjYKTqR5DlcitkMADKOp1GtSF9rUVhJx8EKQjj wGKyCRDcQLLcC0MeTXKoQB4JxAn1YHXkJs2VyAL6ELSaT99wAD9CSyYjC1TPSVRoVSZ7DJJsVjDNCv2+ HMmfuHOjTK5NKgpA+///PwMYBGRUQBADbvAfDECKEyqIV4+bOQycfF6sNo6SCuWtfb+hoYFE/xaQqJ64 +ELWghQFHqjRgTV+CZaggqbiS7vZZbmpq3ooG8Of3o GL3NIaUfkeDdIHvhYv+EBfBHIAX9b5IMicblGqhCVpNZ3NHwWjUC3ygr8NHpFaPFBqYluLPodfDYvity YwVncRGlIxKMFzIntKUjw6TWbmDN3Eej3hK2T5PHfdXHGNO5PvrJVxTW7yG1AWG5jeEPlbQb1XGhVhC4 KzidPrIEnsF5LyQZrfDIDWDUaoQHBqF5BpYIBrNKGz Db6ZVTShCB5RQpEoLPXgFFN+Rv6GBVRfNN2epaAsyFU2PQXlxW2bNMDiDDCbEOAJKzEyFSRopK1oCYEg ZtRwWQSZZdStBKZudJ7tPyJpYvHaTOGPElUgXHSljZ2wGyYvGRXoLAONXoFyZNQkjR1uSGSbHHYvDGFB RbSgSZJkvH1rJGDoAVPmTUO+Ad8FVCAhUQu7A6O0OI IsRDr5A5EYT4IGNKXvIHmxIZzgVFDfERo3S5Y3RQVeJ2RGT2Uvttwave9+DO7LY21WKOBjFMt9O4B9yG WiV9E0pXrUyQX3FJ4PAV9TyBw5wIGfeU9+VS7PY3SBAoDdIOj7Q5D9hCHnZ9J7nEfHxXV4ZL2WDQ4WgX FwZVRbvoYgEq6cE7QWZQsKGkBUGDS3JK0QlMDlEI2X jCSVN7FytEVhXz8yLBfscUDfmY5bYc1mWKcpIZ3JSrZOPOkYCHS6UL2QhDMbLR4NsKWRY3NlzHUeBf9w TGlnaHRlbj4+LA8NMZNvAg6AGl2+GXesuoNqFooVVoLuGJJsz6UjTTm8PO0CPK6uaTjkYMF0Ma6WxSC8 xKVqV5kNKA4AvIVzY84wpEKxHEHlJd2ZYpR5iaNisI 7CMW41vXSov6Q3XOTpX8ijFFjlw94bLZtzCEdNML0qFUVFUQhxRBvkTRJ7YnYuigfzDUYwBh2VYwAyFO n6gU4uwVE0ZPS2GnvlnYMvATxsDeLmRfVeMrH4hLdndoc9CIybKP9aFTqtmgxaOSXlGzz+DQogICAgPH GeQyeDPRFxnC3cpkJ2pdJgYRttkTRqXl2oj8s4Ugie Sp6wEl2bXGr8MiIlAaJcGRPoSw1qrL18VSlescClDn7XNbPqEUY4P7UzQsnIKLI+ITgoXQxykUc9yYXu AQOjZl1EZSDbHWDfFFRpOUJyLQDjBQZbYIMlIOZfONSlFKMiOAYmGJKeTWZySKMlFIWnCGCjCWNkTQEo ICAgICAgICAgICAgICAgICAgICAgICAgICAgICAgIC StUZXrXYLqPEJmCQQsWD3TGKZnMIPmVHSxJKNaXMXfFIXkLUJlNFSkRPAcLPRuOGWgDHViDCDuOYOoRX DiDLYuLELgKCEwCUOzXQBbHLZhXGZySLRsMXCfWTGhUHNkSQWaJGHjQCFwCUJhIOGwJUScTNRrBV8DWZ AgICAgICAgICAgICAgICAgICAgICAgICAgICAgICAg ICAgICAgICAgICAgICAgICAgICAgICAgICAgICAgICAgICAgICAgICAgICAgICAgICAgICAgICAgICAg SXXbJAHzAS8YKJHkXHOgVCPgSRGrPRMjMBSmQRPyKSVgUMAnIJUzESErMJDlFMNuOZOxERCiUOWmVWPi ICAgICAgICAgICAgICAgICAgICAgICAgICAgICAgIC HhKYWyQMIfSLSkJUShJNHaJY4KPQDuAPUwRJTyYBNpKAYuAZKtCJWdEQKzXNCrMYLuSAGfUGZnJAOaLD AgICAgICAgICAgICAgICAgICAgICAgICAgICAgICAgICAgICAgICAgICAgICAgICAgICAgICAgICAgIA 0KICAgICAgICAgICAgICAgICAgICAgICAgICAgICAg ICAgICAgICAgICAgICAgICAgICAgICAgICAgICAgICAgICAgICAgICAgICAgICAgICAgICAgICAgICAg YLZxIUXwHDFzTE7BAMNsPBPvTNVaSOLoLDJyWQAmELKxIJEaMXCtOHOfQCPyGNAgCKUqQNXxWHZpANEw ICAgICAgICAgICAgICAgICAgICAgICAgICAgICAgIC WyWGRfNSCqREHlSIZfHOAcLJEnEH9NBHXiGKNaHMBmMKFnQXPpLLJwBKHhNUUnMVRdGFHxRVFsFEFiJP AgICAgICAgICAgICAgICAgICAgICAgICAgICAgICAgICAgICAgICAgICAgICAgICAgICAgICAgICAgIC EaHB9FGJLwLRTsHVWpXBEwATHkFMWdWXRgLTWwJSRr ICAgICAgICAgICAgICAgICAgICAgICAgICAgICAgICAgICAgICAgICAgICAgICAgICAgICAgICAgICAg GYUdCSRzROBdFFApKQ2ALURvBODrQNUjKGUyDQNkZIPwJOHuTQOqCBLpQOTyITZqAKOzZHJdRRRcQOHm ICAgICAgICAgICAgICAgICAgICAgICAgICAgICAgIC DsALEoBCZzXWHuSAVrFERaZFMwOFEmJC8GRM09vTKoj9O8DDVyTP3hfbc/Zz2DTPwuxgNdoLOsXK1RGh EeWL5sgf3OHgCoKU4yqk8IEFeMIhIsT8Y5fQUjJPHfVEZGAsLeF59eGMkaXa57MGekIZFsMcRuHAz4Xy 0HAxWuV6hmRVOmPbP1NGMsGcWlPIisDI8Qh7FwlPZp DQo+Ei1QLN1fs7QuJFjhTeBmIB6vub1SQLqJKxNnU4B9pUNpF3Z0KDjyPn1HNPCsIVNdOaBaPOOHENmv HQ7ZIV3wfsN2CZ8CrSLwBAAdJJFohHZvPAr7K35wfJWxDMmqNZ7ICAE+Markus+Nz9WABJbDWHyCPMuHuPw EVEMNeLwM44egBUjNGWdAFVnQBVhFw2GSDUqM7Wjaq HqwKxuywQgXZDyFOEAEH5FMNzhkeAznUCvnJjnHY07oGmvHK8ZZw0BPiKlFD4hvd3GdCMhUv8TIYPvDD 4GQPIwFHGeIPQzWLZ3FHUiDlKwFYggLNVjLZSoQPG7YHSgZSFbRV9EDnKfQMDyBTapVWvgWVUbFCZngi 0KMDAwMDAxMDIxOCAwMDAwMCBuDQowMDAwMDAwMTkz HWAuQEHcCY3CDwYzOCIlVGMvZRwbAZFzGJMtlr7XCSXyNGPyNnLlWxKxEQPeJYJhKVswTXAvRNIqUXEo UIFlQINzAE5LXgHpYMEbSKJ9STfdPLVyCUKork1PNDPpJSQxVfuyPxPvNEDzKJPuNHdzOLSaQXV5UGt0 MARtQVEiNS7LTyFeDAUqBKHwQRmeNXDsZKWott6XGC JmEGBuVNT2BXUxBHNiASBqXAatKEExSSW6FbYxVZIsZTEgZX8JWiOkRBNuLTA0KYOjKICuAAQrgr7DMK OpEZQrAyUmHLUoFMPrSEZwJYnoECCtDGA1KJWdCRVhWKIuXY1RXiYgESCcKSlrRyKzSRUaZUIbjm2GWZ OiVZEzSfRyYnSgDULbWMWkCIqvTJQyIJP5SvS3JKFg LGXbDL5AYgEeTBLmXTfqHsFwDRTqYUQcrw3JJKZdDCAnNLK4MsKjLSThDHYdDFocVGSsOUP6ANx5HFHx JLUuSW8VDcAeUWRxMLVaHVRhUGHjGLGeau8OhGXypSwsxd3WFHfJHc2KlKtcCGW7UJmeGi2onFKmBtCn IGMFHm0GtoRlYFAaPEYPDFmoKWStUGSrBwHaYRI2Go NiMdapAqc2AaM5ZdavWrFuSZhlKKceZaL2RSUoKFXyCld0NcNuSGHkKTifTpY3G4JbXTBpW8B3GQO+IF 0gDQo+Gu2Ki0InjlL0aqEeRVgmCDTpAz2AEPBBA9CYUj== ID Date Data Source [id number] 09/17/2020 12:00:00 AM EDT [facility] Name Value Range Interpretation Code Description Data Nathalie rce(s) Supporting Document(s) SARS-CoV2 Rapid Antigen Negative [facility] This lab was reported by Karan Infante. Procedure Social History Code Duration Value Status Description Data Source(s ) Smoking 12/18/2020 12:00:00 AM EDT Patient has never smoked co mpleted Patient has never smoked [facility] ([facility], ) Smoking 07/28/2020 12:00:00 AM EDT UNK completed eCW1 ([facility]) Smoking 07/28/2020 12:00:00 AM EDT UNK completed eCW1 ([facility]) Smoking 07/28/2020 12:00:00 AM EDT UNK completed eCW1 ([facility]) Smoking 07/28/2020 12:00:00 AM EDT UNK completed eCW1 ([facility]) Smoking 07/17/2020 12:00:00 AM EDT UNK completed eCW1 ([facility]) Smoking 03/11/2020 12:00:00 AM EST UNK completed eCW1 ([facility]) Smoking 03/11/2020 12:00:00 AM EST UNK completed eCW1 ([facility]) Smoking 03/11/2020 12:00:00 AM EST UNK completed eCW1 ([facility]) Vital Signs ID Date Data Source UNK Name Value Range Interpretation Code Description Data Source(s) Systolic blood pressure 108 mm[Hg] 108 mm[Hg] [facility] Diastolic blood pressure 62 mm[Hg] 62 mm[Hg] [facility] Heart rate 72 /min 72 /min [facility] ([facility]) Respiratory rate 14 /min 14 /min [facility] ( [facility]) Body temperature 98.2 [degF] 98.2 [degF] [facility] ([facility]) Body height 63 [in_i] 63 [in_i] [facility] ([facility]) 5'3" Body weight 135.00 [lb_av] 135.00 [lb_av] [facility] ([facility]) Body mass index (BMI) [Ratio] 23.9 kg/m2 23.9 k g/m2 [facility] ([facility]) Bryant body weight 115 [lb_av] 115 [lb_av] [facility] ([facility]) Body weight 61.236 kg [address] [facility] ([facility]) Body surface area Derived from formula 1.64 m2 1[address] [facility] ([facility]) Systolic blood pressure 122 mm[Hg] 122 mm[Hg] M [facility]ENT ([facility], [facility]) Body mass index (BMI) [Ratio] 22.8 kg/m2 22.8 k g/m2 [facility] ([facility]) Diastolic blood pressure 73 mm[Hg] 73 mm[Hg] [facility] ([facility], [facility]) Heart rate 73 /min 73 /min [facility], [facility]) Respiratory rate 12 /min 12 /min [facility] ( [facility]) Oxygen saturation in Arterial blood by Pulse oximetry 98 % 98 % [facility] ([facility]) Body temperature 96.6 [degF] 96.6 [degF] [facility] ([facility]) Body weight 129.00 [lb_av] 129.00 [lb_av] [facility] T ([facility]) Body height 63 [in_i] 63 [in_i] [facility] ([facility]) 5'3" Body weight 134 [lb_av] 134 [lb_av] eCW1 ([facility]) Body height 63.75 [in_i] 63.75 [in_i] W1 ([facility]) Body mass index (BMI) [Ratio] 23.18 kg/m2 23.18 kg/m2 W1 ([facility]) Systolic blood pressure 120 mm[Hg] 120 mm[Hg] e CW1 ([facility]) Diastolic blood pressure 72 mm[Hg] 72 mm[Hg] eCW1 ([facility]) Bryant body weight 115 [lb_av] 115 [lb_av] MEDEN T ([facility], ) Body mass index (BMI) [Ratio] 23.7 kg/m2 23.7 k g/m2 [facility], [facility] Body weight 60.782 kg 60.782 kg [facility], ) Body surface area Derived from formula 1.63 m2 1.63 m2 [facility], ) Diastolic blood pressure 64 mm[Hg] 64 mm[Hg] [facility] ([facility], ) Heart rate 74 /min 74 /min [facility], ) Respiratory rate 14 /min 14 /min [facility] Body height 63 [in_i] 63 [in_i] [facility] ([facility]) 5'3" Body weight 134.00 [lb_av] 134.00 [lb_av] MEDEN T ([facility], ) Systolic blood pressure 110 mm[Hg] 110 mm[Hg] M [facility] ([facility]) Respiratory rate 14 /min 14 /min [facility] ( [facility]) Body height 63 [in_i] 63 [in_i] [facility] ([facility]) 5'3" Body weight 134.00 [lb_av] 134.00 [lb_av] [facility] ([facility]) Body mass index (BMI) [Ratio] 23.7 kg/m2 23.7 k g/m2 [facility] ([facility]) Bryant body weight 115 [lb_av] 115 [lb_av] [facility] ([facility]) Body weight 60.782 kg [address] [facility] ([facility]) Body surface area Derived from formula 1.63 m[address] [facility] ([facility])
[2021-01-06] MEDS ORDERED: GENTAMICIN SULF 80MG/2ML VIAL As Ordered ONE (07:08)
[2021-01-06] MEDS ORDERED: EPINEPHrine INJ 1 MG/ML 1ML AMP As Ordered ONE (07:09)
[2021-01-06] MEDS: LIDOCAINE 1% MDV 20ML VIAL As Ordered ONE ×3 (07:14→07:52)
[2021-01-06] MEDS: EPINEPHrine INJ 1 MG/ML 1ML AMP As Ordered ONE ×2 (07:15→07:52)
[2021-01-06] MEDS ORDERED: LIDOCAINE 2% 100MG/5ML SDV (FOR ANES.) As Ordered ONE (07:23)
[2021-01-06] MEDS ORDERED: propofoL 200 MG/20 ML VIAL As Ordered ONE (07:23)
[2021-01-06] MEDS ORDERED: dexameTHASONE 4 MG/ML 1ML VIAL (J1100 PER 1MG) As Ordered ONE (07:23)
[2021-01-06] MEDS ORDERED: ROCURONIUM BROMIDE 50 MG/5 ML VIAL As Ordered ONE ×2 (07:23→08:46)
[2021-01-06] MEDS ORDERED: MIDAZOLAM INJ 2MG/2ML VIAL (J2250 PER 1MG) As Ordered ONE (07:24)
[2021-01-06] MEDS ORDERED: fentaNYL 250 MCG/5 ML INJECTION (J3010) As Ordered ONE (07:24)
[2021-01-06] MEDS ORDERED: BUPIVACAINE LIPOSOME/PF 1.3% 20ML VIAL (13.3MG/ML)(EXPAREL)(C9290 PER1MG) As Ordered ONE (07:34)
[2021-01-06] MEDS ORDERED: SCOPOLAMINE 1MG TRANSDERMAL PATCH TOP ONE (08:00)
[2021-01-06] MEDS ORDERED: PHENYLephrine 500MCG 5ML (100MCG/ML) SYRINGE As Ordered ONE (09:38)
[2021-01-06] MEDS ORDERED: ePHEDrine SULFATE 25 MG/5 ML(5MG/ML) SYRINGE As Ordered ONE ×3 (09:38→12:05)
[2021-01-06] MEDS ORDERED: HYDROmorphone HCL 2 MG/ML 1ML VIAL As Ordered ONE (09:45)
[2021-01-06] MEDS ORDERED: ONDANSETRON 4MG/2ML VIAL As Ordered ONE (10:00)
[2021-01-06] MEDS ORDERED: SUGAMMADEX SODIUM 500 MG/5 ML VIAL (BRIDION) As Ordered ONE (10:00)
[2021-01-06] MEDS ORDERED: ACETAMINOPHEN 1000MG 100ML IV BTL (OFIRMEV) (J0131 PER 10MG) As Ordered ONE (10:01)
[2021-01-06] MEDS ORDERED: LACRILUBE (AKWA TEARS) OPHTH OINT 3.5 GM As Ordered ONE (10:29)
--- NOTE | 2021-01-06 12:57 | POST-OPPD ---
Postoperative Procedure Note Date Of Procedure: Jan 06, 2021 PREOPERATIVE DIAGNOSIS: Bilateral breast hypertrophy. Lipodystrophy abdomen and back. POSTOPERATIVE DIAGNOSIS: same PROCEDURE: Bilateral breast reduction. Liposuction abdomen and back. SURGEON: Dr Lin ANESTHESIA: General ESTIMATED BLOOD LOSS: 100 cc FINDINGS: Large breasts SPECIMENS: Right breast 219 gm, Left breast 210 gm. Liposuction fluid 1400cc COMPLICATIONS: none REPLACED: none DRAINS: 10 mm CAMRYN x 2 POSTOPERATIVE CONDITION: stable EDY LIN DO Jan 06, 2021 12:57
--- NOTE | 2021-01-06 12:58 | ROOPDOC ---
[facility] Report Of Operation Report of Operation DATE OF PROCEDURE: 01/06/21 PREOPERATIVE DIAGNOSIS: Bilateral breast hypertrophy. Lipodystrophy abdomen and back. POSTOPERATIVE DIAGNOSIS: same PROCEDURE: Bilateral breast reduction. Liposuction abdomen and back. SURGEON: Dr Lin ANESTHESIA: General ESTIMATED BLOOD LOSS: 100 cc FINDINGS: Large breasts SPECIMENS: Right breast 219 gm, Left breast 210 gm. Liposuction fluid 1400cc COMPLICATIONS: none REPLACED: none DRAINS: 10 mm CAMRYN x 2 POSTOPERATIVE CONDITION: stable DESCRIPTION OF PROCEDURE: This is a 45-year-old female who upper back and neck pain worsened by large breasts. Patient is petite. She is scheduled for bilateral breast reduction. Risks, benefits, and alternatives were discussed with the patient in detail, and she is ready to proceed. Patient also has lipodystrophy of abdomen and back and scheduled for liposuction abdomen and back. The day of surgery, she was marked in the upright position and informed consent was obtained. She measures 29 cm from sternal notch to nipple on the Right and 29 cm on the Left, IMF at 21 cm bilaterally. She was marked according superior medial pedicle breast reduction pattern. She was brought into the operating room and placed in the supine position. Preoperative antibiotics were given. Sequential pneumatic stocking were placed on the lower calves. General anesthesia was induced. Patient was placed in the prone position with all bony prominences protected. She was prepped and draped in the usual sterile fashion. Two stab incisions were carried out along the upper and lower back. Tumescent solution was infiltrated throughout the upper and lower back total of 900 cc. Tissue protectors for secured into the openings. Vaser liposuction was performed throughout the upper and lower back total 7 minutes. 3.9 mm 3 ring cannula was used. Suction assisted lipectomy was then performed as well and 550 cc of liposuction fluid was evacuated. Both stab incisions were closed with interrupted 4 Monocryl sutures and patient was placed in supine position. She was prepped and draped in usual sterile fashion. Two stab incisions were carried out along the lower abdomen and one incision in the inner part of superior umbilicus. Tumescent solution was infiltrated throughout the upper and lower abdomen total 1000 cc. Protectors were placed in the openings. Vasa liposuction was done throughout the upper and lower abdomen and flanks 7 minutes. 3.9 mm 3 ring cannula was used Suction assisted lipectomy was performed with 900 cc of liposuction fluid evacuated. Good symmetry was achieved. Incisions closed with interrupted 4 Monocryl sutures. Then we turned our attention for the second part of the procedure the breast reduction. We started our procedure on the right side. Her nipple areolar complex was outlined 42 mm in diameter. We started our incision by scoring the nipple areolar complex area, and then dissection was continued using electrocautery and PEEK cautery until the inferior lateral portion of the breast was resected. Hemostasis was obtained using electrocautery. The pedicle was de- epithelialized using Giles scissors, good perfusion to the nipple at all times. Wound was irrigated with Gentamicin solution. We used Exparel 6 cc for local an esthesia to infiltrate in the Pectoralis muscle as well as the breast tissue. Than, pedicle was turned superior to its new location at 21 cm from sternal notch. The mound was re-created using conforming 0 Vicryl sutures. Pillars were closed with interrupted 3-0 Monocryl sutures and 3-0 Monocryl V-Loc suture. The vertical limb was 6.5 cm. Excess tissue inferiorly was measured and resected, creating the horizontal scar. Horizontal scar was closed with interrupted 3-0 Monocryl sutures as well as 3-0 Monocryl V-Loc suture. Nipple area complex was brought into view through the new opening and sutured in place with 3-0 and 4-0 Monocryl sutures and a 5-0 plain gut sutures. A 10 mm Shaka-Etienne drain was placed through the lateral portion of the horizontal incision. and secured in place with 3-0 Monocryl suture. Then we turned our attention to the left side. Her nipple areolar complex was outlined 42 mm in diameter. We started our incision by scoring the nipple areolar complex area, and then dissection was continued using electrocautery and PEEK cautery until the inferior lateral portion of the breast was resected. Hemostasis was obtained using electrocautery. The pedicle was de-epithelialized using Giles scissors, good perfusion to the nipple at all times. Wound was irrigated with Gentamicin solution. We used Exparel 6 cc for local anesthesia to infiltrate in the Pectoralis muscle as well as the breast tissue. Than, pedicle was turned superior to its new location at 21 cm from sternal notch. The mound was re-created using conforming 0 Vicryl sutures. Pillars were closed with interrupted 3-0 Monocryl sutures and 3-0 Monocryl V-Loc suture. The vertical limb was 6.5 cm. Excess tissue inferiorly was measured and resected, creating the horizontal scar. Horizontal scar was closed with interrupted 3-0 Monocryl sutures as well as 3-0 Monocryl V-Loc suture. Nipple area complex was brought into view through the new opening and sutured in place with 3-0 and 4-0 Monocryl sutures and a 5-0 plain gut sutures. A 10 mm Shaka-Etienne drain was placed through the lateral portion of the horizontal incision. and secured in place with 3-0 Monocryl suture. Remaining Exparel injected in the horizontal incision. Total Exparel use 20 cc. Resected tissue sent to pathology in two specimens right and left breast tissue. Right breast 219 grams, left breast 210 grams. Dressings were applied to vertical and horizontal incision: Prinio strips and Dermabond. Nipples areolar complex: Xeroform and a bulky dressing with a surgical bra. Abdominal binder was placed. Patient was extubated in the operating room without difficulty and was transferred to the recovery room in stable condition. . EDY LIN DO Jan 06, 2021 12:58
[2021-01-06] MEDS ORDERED: ACETAMINOPHEN TAB 650MG DOSE (2X325MG) PO PRN (13:00)
[2021-01-06] MEDS ORDERED: MORPHINE 4 MG/ML 1ML VIAL/SYRINGE (J2270) IV PRN (13:00)
[2021-01-06] MEDS ORDERED: ONDANSETRON 4MG/2ML VIAL IV PRN ×2 (13:00→13:25)
[2021-01-06] MEDS ORDERED: oxyCODONE 5MG TAB PO PRN (13:25)
[2021-01-06] MEDS ORDERED: HYDROMORPHONE HCL 0.5 MG/ 0.5 ML SYRINGE (J1170 PER 1) IV PRN (13:25)
[2021-01-06] MEDS ORDERED: METOCLOPRAMIDE INJ 10MG/2ML VIAL (J2765 PER 1) IV PRN (13:25)
[2021-01-06] MEDS ORDERED: LR 1,000 ML IV SCH (13:25)
[2021-01-06] MEDS ORDERED: fentaNYL 100 MCG/2 ML INJECTION (J3010) IV PRN (13:25)
[2021-01-06 15:00] VITALS: BP 109/64
[2021-01-06] MEDS: LR 1,000 ML IV SCH ×2 (15:15→22:30)
[2021-01-06 15:40] VITALS: BP 114/77
[2021-01-06] MEDS: ceFAZolin SOD 1 GM in D5W MINI-BAG PLUS 50 ML IV SCH (16:20)
[2021-01-06 17:40] VITALS: BP 108/62
[2021-01-06] MEDS: PERCOCET 5MG/325MG TAB PO PRN ×2 (18:19→22:34)
[2021-01-06 18:38] VITALS: BP 109/64
[2021-01-06] MEDS ORDERED: LAMICTAL 200 MG PO SCH (21:00)
[2021-01-06 22:00] VITALS: BP 103/62
[2021-01-07] MEDS: ceFAZolin SOD 1 GM in D5W MINI-BAG PLUS 50 ML IV SCH ×2 (00:35→07:45)
[2021-01-07 02:00] VITALS: BP 101/50
[2021-01-07] MEDS: PERCOCET 5MG/325MG TAB PO PRN ×2 (04:45→12:12)
[2021-01-07 06:00] VITALS: BP 102/62
[2021-01-07 10:00] VITALS: BP 103/62
--- NOTE | 2021-01-07 10:55 | IPNPDOC ---
Subjective General Date Seen: Jan 07, 2021 Subject Chief Complaint/History The patient is a 45-year-old female admitted with a reason for visit of Bilateral Breast Hypertrophy, Ptosis. Patient status post bilateral breast reduction liposuction abdomen and back. Postop day 1. Patient states the most pain is along the back and breast pain is much more milder and controlled by pain medications. Patient is tolerating regular diet, ambulating to the bathroom. Current Medications Current Medications Current Medications Medications (Trade) Dose Ordered Sig/Jose Route PRN Reason Start Time Stop Time Status Last Admin Dose Admin Acetaminophen (Tylenol Tab) 650 mg Q6H PRN PO MILD PAIN (PS 1-4) 01/06/21 13:00 Cefazolin Sodium 1 gm/Dextrose 50 ml @ 100 mls/hr Q8H IV 01/06/21 16:00 01/07/21 07:45 Fentanyl Citrate (Sublimaze) 25 mcg Q5MP PRN IV PAIN LEVEL 8-10 01/06/21 13:25 01/06/21 15:25 DC Hydromorphone HCl (Dilaudid) 0.5 mg Q5MP PRN IV PAIN LEVEL 5-7 01/06/21 13:25 01/06/21 15:25 DC Lactated Ringer's 1,000 ml @ 75 mls/hr [id number] IV 01/06/21 13:00 01/06/21 22:30 Lactated Ringer's 1,000 ml @ 100 mls/hr Q10H IV 01/06/21 13:25 01/06/21 15:25 DC Metoclopramide HCl (REGLAN INJection) 10 mg Q6HP PRN IV NAUSEA OR VOMITING 01/06/21 13:25 01/06/21 15:25 DC Miscellaneous (Unresolved Clarification Entry) SEE LABEL COMMENTS DAILY XX 01/06/21 09:00 01/06/21 20:39 DC Morphine Sulfate (Morphine Sulfate Inj) 4 mg Q4HP PRN IV SEVERE PAIN (PS 8-10) 01/06/21 13:00 01/07/21 08:28 Ondansetron HCl (ZOFRAN INJection) 4 mg Q4H PRN IV NAUSEA OR VOMITING 01/06/21 13:00 Ondansetron HCl (ZOFRAN INJection) 4 mg Q4HP PRN IV NAUSEA OR VOMITING 01/06/21 13:25 01/06/21 15:25 DC Oxycodone HCl (Roxicodone, Oxyir) 5 mg ASDIRECTED PRN PO PAIN LEVEL 1-4 01/06/21 13:25 01/06/21 15:25 DC 01/06/21 13:53 Oxycodone/ Acetaminophen (Percocet 5mg/ 325mg Tablet) 2 tab Q4HP PRN PO PAIN LEVEL 4-7 01/06/21 13:00 01/07/21 04:45 Patient Own Medication (Patient'S Own Med) one tab QHS PO 01/06/21 21:00 01/06/21 21:16 Allergies Coded Allergies: No Known Allergies (Verified , 01/10/17) Objective Physical Examination Examination GENERAL APPEARANCE:Patient seen, laying in bed, awake, alert, and oriented. Comfortable, in no acute distress. SKIN: Warm and moist. BREAST: Right and left soft, non-tender incisions intact. CAMRYN drains: 15/10 cc/24 hr. NAC: Viable, warm, symmetrical, mild post-op ecchymosis, no expanding hematoma. LUNGS: Clear to auscultation bilaterally. No wheezing appreciated. HEART: No chest wall abnormalities. Regular rate and rhythm with no murmurs appreciated. ABDOMEN: Abdomen is soft, non-tender, non-distended. Mild post op ecchymosis abdomen and back. No expanding hematomas. EXTREMITIES: No edema identified. No calf tenderness. Vital Signs Vital Signs Date Time Temp Pulse Resp B/P (MAP) Pulse Ox O2 Delivery O2 Flow Rate FiO2 01/07/21 08:38 18 01/07/21 06:00 98.4 86 102/62 (75) 94 Room Air 01/06/21 13:13 3 I&Os I&O- Last 24 Hours up to 6 AM 01/07/21 06:00 Intake Total 2680 ml Output Total 1935 ml Balance 745 ml Impression Status post bilateral breast reduction and liposuction abdomen and back. Dressing changed today. Patient is stable for discharge. Instructions given to the patient. Follow-up with plastic surgery after discharge. Plan / VTE VTE Prophylaxis Ordered?: Yes EDY LIN DO Jan 07, 2021 10:55
[2021-01-07] MEDS ORDERED: PERCOCET PO (11:47)
--- OUTSIDE RECORDS SUMMARY | 2021-01-09 10:00 | CCD ---
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 Name Role Phone Kenyatta Brown MD Unavailable Unavailable Kenyatta Brown MD Unavailable Unavailable Kenyatta Brown MD Unavailable Unavailable Kenyatta Brown MD Unavailable Unavailable Kenytata Brown MD Unavailable Unavailable Kenyatta Brown MD [...] Unavailable Unavailable Kenyatta Brown MD Unavailable Unavailable Keynatta Brown MD Unavailable Unavailable Kenyatta Brown MD Unavailable Unavailable Kenyatta Brown MD Unavailable Unavailable Kenyatta Brown MD Unavailable Unavailable Kenyatta Brown MD Unavailable Unavailable Kenyatta Brown MD Unavailable Unavailable Kenyatta Brown MD Unavailable Unavailable Kenyatta Brown MD Unavailable Unavailable Kenyatta Brown MD Unavailable Unavailable Kenyatta Brown MD Unavailable Unavailable Kenyatta Brown MD Unavailable Unavailable Kenyatta Brown MD Unavailable Unavailable Brown, Kenyatta Roland MD Unavailable Unavailable Brown, Kenyatta Roland MD Unavailable Unavailable Brown, Kenyatta Roland MD Unavailable Unavailable Brown, Kenyatta Roland MD Unavailable Unavailable Brown, Kenyatta Roland MD Unavailable Unavailable Brown, Kenyatta Roland MD Unavailable Unavailable Brown, Kenyatta Roland MD Unavailable Unavailable Brown, Kenyatta Roland MD Unavailable Unavailable Brown, Kenyatta Roland MD Unavailable Unavailable LETTIERE, A [...] is protected by Article 27-F of the [facility] Public Health law. If you continue you may have access to information: Regarding HIV / AIDS; Provided by facilities licensed or operated by the [facility] Office of Mental Health; or Provided by the [facility] Office for People With Developmental Disabilities. If such information is present, then the following [facility] mandated warning applies: This information has [...] law may result in a fine or residential sentence or both. A general authorization for the release of medical or other information is NOT sufficient authorization for further disc losure. Allergies and Adverse Reactions Type Description Substance Reaction Status Data Source(s ) Allergy to substance Allergy to substance Allergy to substance VANNA ([facility]) Allergy to substance Allergy to substance Allergy to substance VANNA ([facility]) Family History Family Member Name Family Member Gender Family Member Status Date o f Status Description Data Source(s) Unknown Unknown Problem MEDENT ([facility]) Unknown Unknown Problem MEDENT ([facility]) Encounters Encounter Providers Location Date Indications Data Source(s ) [place] [address] [facility] [place] [address] 01/05/2021 12:00:00 AM EST eCW1 ([facility]) [place] [address] [facility] [address] 01/05/2021 12:00:00 AM EST eCW1 ([facility]) Outpatient [address] [facility] [address] 01/02/2021 12:00:00 AM EST eCW1 ([facility]) Outpatient CLAIREP.KANNAN-CLAIREP 12/20/2020 01:16:11 PM EDT [facility] Outpatient Referrer: Mesfin TATUMCT-SJP.SYR 11/21 09:25:36 AM EDT - 12/09/2020 10:14:09 AM EDT Health system Center [place] [address] [facility] [address] 12/05/2020 12:00:00 AM EDT eCW1 ([facility]) Outpatient CLAIREP.KANNAN-CLAIREP.KANNAN 12/02/2020 12:00:00 AM EDT [facility] Unknown [address] [facility] [address] 11/27/2020 12:00:00 AM EDT eCW1 ([facility]) [place] [address] [facility] [address] 09/22/2020 12:00:00 AM EDT eCW1 ([facility]) Outpatient Attender: VÍCTOR leiva 09/17/2020 05:10:00 PM EDT MEDENT ([facility] [place] [address] [facility] [address] 07/28/2020 12:00:00 AM EDT eCW1 ([facility]) Unknown [address] [facility] [address] 07/24/2020 12:00:00 AM EDT eCW1 ([facility]) Outpatient Attender: EDY Rivas/Jolie/Ever/Edith gastelum 07/16/2020 10:45:00 AM EDT MEDENT ([facility]) Luan Brown MD: [address] [place] [phone], Ph. Attender: Luan Brown MD [facility] 06/05/2020 12:00:00 AM EDT VANNA ([facility]) Luan Brown MD: [address] [place] [address], Ph. Attender: Luan Brown MD [facility] 05/07/2020 12:00:00 AM EDT VANNA ([facility]) Luan Brown MD: [address] [place] [phone], Ph. Attender: Luan Brown MD [facility] 05/07/2020 12:00:00 AM EDT [facility] ([facility]) Unknown [address] [facility] [place] [address] 03/31/2020 12:00:00 AM EST eCW1 ([facility]) Unknown [address] [facility] [place] [address] 03/12/2020 12:00:00 AM EST eCW1 ([facility]) Immunizations Vaccine Date Status Description Data Source(s) COVID-19, mRNA, LNP-S, PF, 100 mcg/0.5 mL dose 06/05/2020 11 :36:31 AM EDT completed 10.5 mL VANNA ([facility]) COVID-19 VACCINE Moderna 06/05/2020 12:00:00 AM EDT completed NYSIIS Vaccine Series Complete: YESThis Data wa s Submitted to [facility] Via [employer]. COVID-19, mRNA, LNP-S, PF, 100 mcg/0.5 mL dose 05/07/2020 05 :33:38 PM EDT completed 10.5 mL VANNA ([facility]) COVID-19, mRNA, LNP-S, PF, 100 mcg/0.5 mL dose 05/07/2020 05 :33:38 PM EDT completed 10.5 mL VANNA ([facility]) COVID-19 VACCINE Moderna 05/07/2020 12:00:00 AM EDT completed NYSIIS Vaccine Series Complete: NOThis Data was Submitted to [facility] Via [employer]. Medications Medication Brand Name Start Date Product [...] type / Coverage type Policy ID Covered republican ID Covered republican's relationship to hugo Policy Hugo Plan Information [facility] P [id number] SELF [id number] POMCO [id number] SP [id number] POMCO U [id number] Self [id number] POMCO [id number] SP [id number] POMCO [id number] SP [id number] Pomco F [id number] SELF [id number] POMCO [id number] SP [id number] EXCELLUS H [id number] Unkn [id number] D Excellus BCBS Dental P [id number] S [id number] [place] PPO 302/307 [id number] HU2 [id number] EXCELLUS BCBS [id number] Unk YND [id number] Blue Cross Blue Shield P [id number] SPOUSE [id number] Blue Cross Blue Shield P [id number] SELF [id number] ANSI-Commercial [id number] ANSI-Commercial [id number] [place] PPO 302/307 [id number] BCBS/Excellus Commercial [id number] Family Dependent [id number] Excellus BCBS CHP P [id number] S [id number] Self Pay P [id number] O [id number] [facility] [id number] SP [id number] [facility] (O) [id number] Self [id number] [facility] PPO O [id number] S [id number] MEDICAID [id number] SP [id number] [facility] (O) [id number] Self [id number] Sliding Fee Scale P [id number] S [id number] [facility] Organization (O) [id number] Se lf Pom[place] Commercial [id number] Self VERNELL INS [id number] SP [id number] [employer]NELL INSURANCE P [id number] S [id number] VERNELL INS [id number] SP [id number] Medicaid Dental O [id number] S [id number] D Managed Care Healthplex O [id number] S [id number] SELF PAY UNAVAILABLE UNAVAILA BLE [place]BS [place] PPO 302/307 [id number] O BLUE [id number] SP [id number] [place]BS [place] PPO 302/307 [id number] ANSI-Commercial [id number] ANSI-Commercial [id number] [place]BS [place] PPO 302/307 [id number] ANSI-Commercial [id number] ANSI-Commercial [id number] ANSI-Commercial [id number] ANSI-Commercial [id number] [facility] BCBS Health Maintenance Organization (HMO) [id number] Family Dependent [id number] ANSI-Commercial [id number] [facility] BCBS B [id number] P [id number] ANSI-Commercial [id number] Problems, Conditions, and Diagnoses No Information Surgeries/Procedures Procedure Description Date Indications Data Source(s) OFFICE OUTPATIENT VISIT 15 MINUTES 09/17/2020 12:00:00 AM EDT MEDENT ([facility]) OFFICE OUTPATIENT NEW 45 MINUTES 07/16/2020 12:00:00 A M EDT MEDENT ([facility]) Results ID Date Data Source PT & APTT 01/02/2021 12:00:00 AM EST eCW1 ([facility]) Name Value Range Interpretation Code Description Data Nathalie rce(s) Supporting Document(s) 13.0 12.7-14.5 PROTHROMBIN TIME eCW1 ([facility]) 0.94 INR eCW1 ([facility]) 33.3 25.9-37.0 PARTIAL THROMBOPLASTIN TI ME eCW1 ([facility]) ID Date Data Source Comprehensive Metabolic Profile (CMP) 01/02/2021 12:00:00 AM EST eCW1 ([facility]) Name Value Range Interpretation Code Description Data Nathalie rce(s) Supporting Document(s) 0.81 0.55-1.30 CREATININE FOR GFR eCW1 ([facility]) 86 70-100 GLUCOSE, FASTING eCW1 ([facility]) 14 7-18 BLOOD UREA NITROGEN eCW1 ([facility]) 4.3 3.5-5.1 POTASSIUM SERUM eCW1 ([facility]) > 60.0 >58 GLOMERULAR FILTRATION RATE eCW 1 ([facility]) 139 136-145 SODIUM LEVEL eCW1 ([facility]) 104 98-107 CHLORIDE LEVEL eCW1 ([facility]) 8.8 8.5-10.1 CALCIUM LEVEL eCW1 ([facility]) 16 7-37 AST/SGOT eCW1 ([facility]) 29 21-32 CARBON DIOXIDE LEVEL eCW1 ([facility]) 0.3 0.2-1.0 BILIRUBIN,TOTAL eCW1 ([facility]) 48 45-117 ALKALINE PHOSPHATASE eCW1 ([facility]) 20 12-78 ALT/SGPT eCW1 ([facility]) 4.0 3.2-5.2 ALBUMIN eCW1 ([facility]) 1.2 1.2-2.2 ALBUMIN/GLOBULIN RATIO eCW1 ([facility]) 7.3 6.4-8.2 TOTAL PROTEIN eCW1 ([facility]) ID Date Data Source CBC - Complete Blood Count 01/02/2021 12:00:00 AM EST eCW1 ( [facility]) Name Value Range Interpretation Code Description Data Nathalie rce(s) Supporting Document(s) 4.97 4.00-5.40 RED BLOOD COUNT eCW1 ([facility]) 4.8 4.0-10.0 WHITE BLOOD COUNT eCW1 ([facility]) 90.5 80.0-96.0 MEAN CORPUSCULAR VOLUME e CW1 ([facility]) 45.0 36.0-47.0 HEMATOCRIT eCW1 ([facility]) 14.9 12.0-15.5 HEMOGLOBIN eCW1 ([facility]) 12.6 11.5-14.5 RED CELL DISTRIBUTION WID TH eCW1 ([facility]) 33.1 32.0-36.5 MEAN CORPUSCULAR HGB CONC eCW1 ([facility]) 30.0 27.0-33.0 MEAN CORPUSCULAR HEMOGLOB IN eCW1 ([facility]) 183 150-450 PLATELET COUNT, AUTOMATED eCW1 ([facility]) ID Date Data Source [id number] 12/20/2020 01:10:54 PM EDT [facility] Name Value Range Interpretation Code Description Data Nathalie rce(s) Supporting Document(s) &PDF [facility] OLDGCw1fIdQKHaXj79/NYPhuQFXlr4ApPIacFTp1OJvsUXYzA0VaxOvtLOEIRZKMKeJGALoZOqeOYZHq vci [file] /5+HxBV++f//associate director of nursing+447kOLTyM4O0KDb+HeT0NwNX/bMMX2VKm+n//74oDUxNWEcsYC2mwQ4V2U31jahj PKGl0mA5Lg+BAr0+J/+lQwX8f/8Hg3/ONSG0f6CKrF oSQ9UIH9gRb/cdE28woI9eQWEVNF8SLD8OCF8di2PpEHAbIYkghnCmOlgVEqRfYMTss5NdFMc2LC6SSK JqWUsiWF7TK4QxRLN9E1Y4HcF0lMMjRR8dK4VlYkVsJB4nhCf9R3HjoUKNDSCLc35bv86zjjIuUC3Eq0 fhvvJlUOFdG0UtsbblNAJFLv8MvLH0jIXbJj1IIXgf fLKrQVPdFZZcF3VuIWNwVJ2LbGv0ETCjKx6JkUX5NQAiA13hZY1EWtZbI9XXSCHpKUW4WALkFoQLZt0+ HGdpfCLtKM8WKahN+///PwMYBGRUQBADbvAfDECKEyqIV4+dSItrpU7iSv2RJlDqkz+hoYFE/xaQqJ64 +ELWghQFHqjRgTV+APzesjylD3cXButyj5rmK5Yp1n AM2BSiRsdePdYAfvCu+HKaGBQSN8g2GEyfreLxeXImVL5RCaNlGC2uby7RYtIxVTWzHngQGxbtTRanot KqAbjLWaFgSMVuZxaBWxv9XHefJT2Xdn9eR7M9PHepZCIBK9GecROfED8iC2WPI9oxPRqzZv1YPvDeR0 MzafXxLLalP5IjFSrdAKUWCOzpOSXkF7VlFBTwUGXo Sm9VFGBfHB2PLtWeUOBiHZT+Hs0IUWNqKI9utnAmxXV8DPEyaO0iJXRwSYLmBTKTTcAsNGVepN9sGRVx DzCvLFRPCzFoEMRqaA7oFsPcNuShNLOKMcCqKKMhtA2wXrXxQKHrOLYGEfYnXUXtrY6zQLEgUJNkETPK OmSjVCFfgV1dRPFqSWQdGGF+Hd2LJQYoIUz9L9B0JB IjNMx3T2FBT3XMYBVvASahEVtyQSHbCAr7I3X7HMJdV6OWF6Qurjihmh6+AH4XZ60XWYWhNSr2T3L4sX YwW5L0yVuHdQY7TN2FFX9ZvDb9tEVoyY4+PM1LG7LSLbDpYJd8S3R8vMNsP6X3jXeZbMN9QJ2SIT8TeU FxSZZcicZmWz7aZ6AGFGlNPcGDDMA5OE8CzJFlMC4W nDZTN5OsjISlYq9lNNhpaIKhaR7zQs3cQPytBZ8DYyFHDQzQZKG6PN5AnBOcMQ7DoVXMZ2IeqLZeYm4t TGlnaHRlbj4+LO2HICZvEu0GSh5+GJdazrPeZnkKAlYbKQXmh8ZzYPf5UE4FIN5poLveIBQ2Px4WoAU4 zWQmG9bHXN7HuRLwR95mbTVvEZFcJb2QFuL6ztGodE 6NLV47gHQnp5A8ZXAvH0hnSSeky17lFGteLMcAWM9sROOXTSmsISjnQJC1OrCyakhhYLYxEn9LHtUmXP v9sS1icYX7VTQ3MrzkfCUvYCgqFtHjEbIwPoN6oTubowd3SYtxMB1mYPhzkinqKVHgKtm+DQogICAgPH XaJkzFHSGolZ0kxgK6zaCxXKmttFFaRv5ia2l4Xtmf Sn6qDw6xQZy0SeTtZsYvEJPgGc1ofT04BGnvfmEpDc4JVaYgFDI7T0JfKzgIDAT+XXhmXDsnsLf2pWIt ZMPcAa0MCLGeRUOzSHYnGZNoWHFwROCyAMLcVYBvRLWrDGBfWOXaWPUhXPFxORWvLTHjIQNdBTIlSCPi ICAgICAgICAgICAgICAgICAgICAgICAgICAgICAgIC OxEQAdRCVyBCOwYGUtZO0RQEPiCTImXJJxXGKjXQTnKCJtFAFqYLYoTEYjFFIoRLJqARJdDXJjCXMsOC TxFLYxINBfJJSmELNpOLKyMHQtDTDyDWDiOULiRIRzPEBdLGQpWBQuKUPxNBSdCUPbDVAwXOYmCH2KKA AgICAgICAgICAgICAgICAgICAgICAgICAgICAgICAg ICAgICAgICAgICAgICAgICAgICAgICAgICAgICAgICAgICAgICAgICAgICAgICAgICAgICAgICAgICAg ZMJcFCYzNI4WQGPvQSPdBEYmORGcAFDeYLEaSGIiGQYyOAUyZWDaSSJoYKGgVMJkOVZsKHEnHQHyQMKd ICAgICAgICAgICAgICAgICAgICAgICAgICAgICAgIC SiVHUtZGXmCSFbHXFaKJFfSL3ZIENxRUKpHXGyCSLuYZUtKEDyGNNgWJWsMPBwWWAwEGIpKCCvKGVrMW AgICAgICAgICAgICAgICAgICAgICAgICAgICAgICAgICAgICAgICAgICAgICAgICAgICAgICAgICAgIA 0KICAgICAgICAgICAgICAgICAgICAgICAgICAgICAg ICAgICAgICAgICAgICAgICAgICAgICAgICAgICAgICAgICAgICAgICAgICAgICAgICAgICAgICAgICAg DMThPBDmNDZlUY1MXYKzHQTuDHHtXZWaAEUwEPZpYAXaXWMfAWWkUOHwUBQpAKFvZBDqHGHpOVQbSFUx ICAgICAgICAgICAgICAgICAgICAgICAgICAgICAgIC CwRTOnSCBcYFJuNVCjDXJgXTApLX4VVUAgJLNsCNKsJVAiKKAbTRYcSMKlRLRxMBJiAWQuYKZgLTZyKZ AgICAgICAgICAgICAgICAgICAgICAgICAgICAgICAgICAgICAgICAgICAgICAgICAgICAgICAgICAgIC GjMI1HMKYvXTYiNQVpNEXyTWUgFGZuFXVlOJFnRVPs ICAgICAgICAgICAgICAgICAgICAgICAgICAgICAgICAgICAgICAgICAgICAgICAgICAgICAgICAgICAg OQHaWDMhCSWbFHRyIV5TKFJxFZUfOQZjYBSrJESdOPZdYCWjOHTqLMGxIKDuIQUgQGWyJWLrCVEtPFRe ICAgICAgICAgICAgICAgICAgICAgICAgICAgICAgIC ByMIBoSRSuZAAbFWLjMUSbDDUiAYIeBK9TJC89cPVwx1I6BDZlCC8njvd/Mi7LSUtaguAixXQfUN8EPo YoZU0orq5USxMdWG2pjh1RGXeFRcBtA2Y4qJBfLVNaHQXZKpCsN36fWGkoCu55BSsmNCKnPzPtOQo7Gb 6KVsDxB9vkHDBnNhP9WITgZyMtPOnzAL4Rr0FizYYa DQo+Il2RYL0gd2BzMUhgCaCbMQ7glb4EOSbGPjNaH4P6oZPuQ4C4XSbgWg9WZNGbLNInFaUiHRJCAHeu UU2FTD6xglX4ZF8LkEOxEKGwUEGqbUDfRCh4Z79lxSWdDWgbWE8OUCP+Markus+Sw5UFMMzTTZwLDYhCaGx QWTVIzJkB27ycTHnWKAiYMJzJBKeSf0AOOWzR6Inxf HfwHfihxNoOZRoZXQDAC5QLUtghtDjeEJpfXkdWK15qKcjAJ8MNi8CWoMuJB1uid2NdGGvYc9JDGGhML 3HPAGmGQHfSZGlGLL9IHYtAoAjZLakMDNuFESbRYC3EVLeBINaMJ3QYpNpFHBeEFbsUFtbDGHbWYJczr 0KMDAwMDAxMDIxOCAwMDAwMCBuDQowMDAwMDAwMTkz LIVsKBZqEV4XRmVeKJByRENwODexGVJkOLFpqu0HRYHgPCCvOkNeXvYpKIKySRPcTIhrMXSiXIQxTUTq OMAwVDBbBS6BStWdSBDlVPF6LSdbFPQfRDUlkg5QRVIaFDJkOoavSgKcIPQhPUXnQUrpKGQcTXZ3IFl6 UCVzQBEsIX5UPzNaUKIiCDPyURvpFXKsFLFpry5TJB RwMYPxBTM2NLFfSWJdJAKpLMgjSYGuAEG6IlYnUMBrFOXfMC6CVnBaOCYzQTT9ENBfMRYtFAOebs8UEI PkHKRkMzMzIDHfAVMgIGZwQJnpQXKwPMK4FSZuSANuPULyPR9OTaJnOEPiPXnaYaSbHRUdGZOnka8SVD UfOBPaAeTvOtHaAJDoSOZpXTblPWOhIYF5DpE5VANj RTNeHQ1IRxStFUUvPEuyOaUkTHVfXMPuuw5AQVOxBWXtEHP0NyPoJZDwVMAtMHgqNDPcEYT7VTr3HACw ENFoLL8YInFaXNVkPYGyDUWjQGJmFCQesa5BiSYdbKwcbl6SFBwEDs1MbOlcFQG1TNzpDz2saWSuQpKv GPVWYv5YzgSfUCVdPKHPYEixGGKwGUOeNiVlMKF4Fc YfEtujQgq5LzR7PwylDgPbWHczCOtoLmE1QQPrXTHtBrr1WfAhJGOdYLveJsC8B3MdUTTgL1F1YMT+IF 0gDQo+Fr2Ks4KnpfR9vmPsOLqvLQYcAy3MEFCVA8GREm== ID Date Data Source [id number] 09/17/2020 12:00:00 AM EDT [facility] Name Value Range Interpretation Code Description Data Nathlaie rce(s) Supporting Document(s) SARS-CoV2 Rapid Antigen Negative [facility] This lab was reported by Karan Infante. Procedure Social History Code Duration Value Status Description Data Source(s ) Smoking 01/05/2021 12:00:00 AM EST UNK completed eCW1 ([facility]) Smoking 01/05/2021 12:00:00 AM EST UNK completed eCW1 ([facility]) Smoking 01/05/2021 12:00:00 AM EST UNK completed eCW1 ([facility]) Smoking 12/18/2020 12:00:00 AM EDT Patient has never smoked co mpleted Patient has never smoked MEDENT ([facility], ) Smoking 07/28/2020 12:00:00 AM EDT UNK completed eCW1 ([facility]) Smoking 07/28/2020 12:00:00 AM EDT UNK completed eCW1 ([facility]) Smoking 07/28/2020 12:00:00 AM EDT UNK completed eCW1 ([facility]) Smoking 07/28/2020 12:00:00 AM EDT UNK completed eCW1 ([facility]) Smoking 07/17/2020 12:00:00 AM EDT UNK completed eCW1 ([facility]) Smoking 03/11/2020 12:00:00 AM EST UNK completed eCW1 ([facility]) Smoking 03/11/2020 12:00:00 AM EST UNK completed eCW1 ([facility]) Smoking 03/11/2020 12:00:00 AM EST UNK completed eCW1 ([facility]) Vital Signs ID Date Data Source UNK Name Value Range Interpretation Code Description Data Source(s) Body weight 133 [lb_av] 133 [lb_av] eCW1 ([facility]) Body weight 60.33 kg 60.33 kg eCW1 ([facility]) Body height 63.75 [in_i] 63.75 [in_i] eCW1 ([facility] Body mass index (BMI) [Ratio] 23.01 kg/m2 23.01 kg/m2 eCW1 ([facility]) Heart rate 82 /min 82 /min eCW1 ([facility]) Respiratory rate 18 /min 18 /min eCW1 ([facility]) Body temperature 97.9 [degF] 97.9 [degF] eCW1 ( [facility]) Systolic blood pressure 118 mm[Hg] 118 mm[Hg] e CW1 ([facility]) Diastolic blood pressure 64 mm[Hg] 64 mm[Hg] eCW1 ([facility]) Systolic blood pressure 108 mm[Hg] 108 mm[Hg] M EDENT ([facility] ) Diastolic blood pressure 62 mm[Hg] 62 mm[Hg] MEDENT ([facility], ) Heart rate 72 /min 72 /min MEDENT ([facility], ) Respiratory rate 14 /min 14 /min MEDENT ( [facility], ) Body temperature 98.2 [degF] 98.2 [degF] MEDENT ([facility], ) Body height 63 [in_i] 63 [in_i] MEDENT ([facility], ) 5'3" Body weight 135.00 [lb_av] 135.00 [lb_av] MEDEN T ([facility]) Body mass index (BMI) [Ratio] 23.9 kg/m2 23.9 k g/m2 [facility]) [place] body weight 115 [lb_av] 115 [lb_av] MEDEN T ([facility]) Body weight 61.236 kg 61.236 kg MEDENT ([facility]) Body surface area Derived from formula 1.64 m2 1.64 m2 [facility] ([facility]) Systolic blood pressure 122 mm[Hg] 122 mm[Hg] M EDENT ([facility], [facility]) Diastolic blood pressure 73 mm[Hg] 73 mm[Hg] MEDENT ([facility], [facility]) Heart rate 73 /min 73 /min MEDENT ([facility], [facility]) Respiratory rate 12 /min 12 /min MEDENT ( [facility], [facility]) Oxygen saturation in Arterial blood by Pulse oximetry 98 % 98 % MEDENT ([facility], [facility]) Body temperature 96.6 [degF] 96.6 [degF] MEDENT ([facility], [facility]) Body weight 129.00 [lb_av] 129.00 [lb_av] MEDEN T ([facility], [facility]) Body height 63 [in_i] 63 [in_i] MEDENT ([facility], [facility]) 5'3" Body mass index (BMI) [Ratio] 22.8 kg/m2 22.8 k g/m2 MEDENT ([facility], [facility]) Body weight 134 [lb_av] 134 [lb_av] eCW1 ([facility]) Body height 63.75 [in_i] 63.75 [in_i] eCW1 ([facility]) Body mass index (BMI) [Ratio] 23.18 kg/m2 23.18 kg/m2 [facility] ([facility]) Systolic blood pressure 120 mm[Hg] 120 mm[Hg] e CW1 ([facility]) Diastolic blood pressure 72 mm[Hg] 72 mm[Hg] eCW1 ([facility]) Body mass index (BMI) [Ratio] 23.7 kg/m2 23.7 k g/m2 MEDENT ([facility]) [place] body weight 115 [lb_av] 115 [lb_av] MEDEN T ([facility]) Body weight 60.782 kg 60.782 kg MEDENT ([facility]) Body surface area Derived from formula 1.63 m2 1.63 m2 MEDENT ([facility]) Systolic blood pressure 110 mm[Hg] 110 mm[Hg] M EDENT ([facility]) Diastolic blood pressure 64 mm[Hg] 64 mm[Hg] MEDENT ([facility]) Heart rate 74 /min 74 /min MEDENT ([facility]) Respiratory rate 14 /min 14 /min MEDENT ( [facility]) Body height 63 [in_i] 63 [in_i] MEDENT ([facility]) 5'3" Body weight 134.00 [lb_av] 134.00 [lb_av] MEDEN T ([facility]) Respiratory rate 14 /min 14 /min MEDENT ( [facility]) Body height 63 [in_i] 63 [in_i] MEDENT ([facility]) 5'3" Body weight 134.00 [lb_av] 134.00 [lb_av] MEDEN T ([facility]) Body mass index (BMI) [Ratio] 23.7 kg/m2 23.7 k g/m2 [facility] ([facility]) [facility] body weight 115 [lb_av] 115 [lb_av] MEDEN T ([facility]) Body weight 60.782 kg 60.782 kg MEDENT ([facility]) Body surface area Derived from formula 1.63 m2 1.63 m2 [facility] ([facility])
--- OUTSIDE RECORDS SUMMARY | 2021-01-09 10:00 | CCD ---
Author Author [facility] Organization [facility] Address Unknown Phone Unavailable Care Team Providers Care Purification Operator Name Role Phone Ed Jonna Unavailable PROBLEMS Type Condition ICD9-CM Code SOW43-WY Code Onset Dates Condition S tatus W/U Status Risk SNOMED Code Notes Problem Stage 2 chronic kidney disease N18.2 Active confir med 107919951 Problem Nonintractable epilepsy with out status epilepticus, unspecified epilepsy type G40.909 Active confirmed 518140834 Problem Cervical high risk HPV (human papillomavirus) test positiv e 795.05 Active confirmed 685753932 Problem Mild dysplasia of cervix 622.11 Active confirmed 918148212 Problem Molluscum contagiosum 078.0 Active confirmed 05883356 ALLERGIES No Known Allergies ENCOUNTERS from 1975 to 2021-01-05 Encounter Location Date Provider Diagnosis [id number] [place] [address] Dec, 2020 Jonna Wadr IMMUNIZATIONS Vaccine Route Administration Date Status TDAP [...] Notes Start Da te End Date Status Vitamin B Complex - 1 tab Orally Daily Active Multivitamins OTC 1 tab(s) Orally once a day Active LaMICtal XR 200 MG TAKE ONE TABLET BY MOUTH AT BEDTIME for 90 day(s) Active Biotin 800 MCG 1 tablet Orally Once a day Active PROCEDURES No Information RESULTS No Results REASON FOR VISIT clearance MEDICAL (GENERAL) HISTORY Type Description Date Medical History hx epilepsy since 10 years o ld - Seizure free on Lamotrigine - Follows with Dr. Drake (Neurology [facility]) - 2019 - He asked us to take over her prescription since she has been stable for so long Medical History depression/anxiety Medical History 12/2016 - Emergent with subsequent Uterine rupture, subsequent DIC, required multiple transfusions, developed oliguric ATN requiring dialysis Medical History Follows with Dr. Cisneros ([facility] hrology) - REnal function returned to baseline Medical History Excercise induced Vision Dis tubance/Diplopia that started after she went scuba diving in 2015 - Wkup by Neurology, Opthalmology and Neuro Opthalmology unrevealing. Evaluated by Vascular in [place] with CTA in 2018 which was normal Medical History 72 hour Holter 2020 - NSR wh en having visual symptoms - Normal Holter Surgical History Repair Fx R ankle 12/2010 [...] PLAN OF TREATMENT Next Appt Details Provider Name:Taisha Gibbs, 20 21-11-22 10:00:00 AM, [address] [place] [address], , [place], [address], Insurance Providers Payer Name Payer Address Payer Phone Insured Name Patient Relati onship to Insured Coverage Start Date Coverage End Date [employer] PPO [id number] [place] [address] MANDI CAMILO [id number]
--- OUTSIDE RECORDS SUMMARY | 2021-01-09 10:00 | CCD ---
Author Author [facility] Organization [facility] Address Unknown Phone Unavailable Care Team Providers Care Supervisor [employer] Name Role Phone Ed Jonna Unavailable PROBLEMS Type Condition ICD9-CM Code [id number] Code Onset Dates Condition S tatus W/U Status Risk SNOMED Code Notes Problem Stage 2 chronic kidney disease N18.2 Active confir med 848306483 Problem Nonintractable epilepsy with out status epilepticus, unspecified epilepsy type G40.909 Active confirmed 903951667 Problem Cervical high risk HPV (human papillomavirus) test positiv e 795.05 Active confirmed 121112915 Problem Mild dysplasia of cervix 622.11 Active confirmed 558838145 Problem Molluscum contagiosum 078.0 Active confirmed 68085002 ALLERGIES No Known Allergies ENCOUNTERS from 1973 to 2021-01-05 Encounter Location Date Provider Diagnosis [address] [place] [address] 12 Dec, 2020 Jonna Ward Encounter for other preprocedural examin ation Z01.818 ; Stage 2 chronic kidney disease N18.2 and Nonintractable epilepsy without status epilepticus, unspecified epilepsy type G40.909 IMMUNIZATIONS Vaccine Route Administration Date Status TDAP [...] REASON FOR REFERRAL No Information VITAL SIGNS Weight 133 lbs Dec, Weight-kg 60.33 kg Dec, Height 63.75 in Dec, BMI 23.01 kg/m2 Dec, Heart Rate 82 /min Dec, Respiratory Rate 18 /min Dec, Temperature 97.9 degrees Fahrenheit Dec, Oximetry 98 Dec, Blood pressure systolic 118 mm Hg Dec, Blood pressure diastolic 64 mm Hg Dec, MEDICATIONS Medication SIG (Take, Route, Frequency, Duration) Notes Start Da te End Date Status Vitamin B Complex - 1 tab Orally Daily Active Multivitamins OTC 1 tab(s) Orally once a day Active LaMICtal XR 200 MG TAKE ONE TABLET BY MOUTH AT BEDTIME for 90 day(s) Active Biotin 800 MCG 1 tablet Orally Once a day Active PROCEDURES No Information RESULTS Component Value Reference Range CBC - Complete Blood Count Reviewed date:01/02/2021 15:16:29 Interpretation: Performing Lab:[facility], [facility] [id number] , ,[place] [address] WHITE BLOOD COUNT 4.8 4.0-10.0 RED BLOOD COUNT 4.97 4.00-5.40 HEMOGLOBIN 14.9 12.0-15.5 HEMATOCRIT 45.0 36.0-47.0 MEAN CORPUSCULAR VOLUME 90.5 80.0-96.0 MEAN CORPUSCULAR HEMOGLOBIN 30.0 27.0-33.0 MEAN CORPUSCULAR HGB CONC 33.1 32.0-36.5 RED CELL DISTRIBUTION WIDTH 12.6 11.5-14.5 PLATELET COUNT, AUTOMATED 183 150-450 Comprehensive Metabolic Profile (CMP) Reviewed date:01/02/2021 15:16:34 Interpretation: Performing Lab:[facility] [address] [facility] [address] , ,[place] [address] GLUCOSE, FASTING 86 70-100 BLOOD UREA NITROGEN 14 7-18 CREATININE FOR GFR 0.81 0.55-1.30 GLOMERULAR FILTRATION RATE > 60.0 >58 SODIUM LEVEL 139 136-145 POTASSIUM SERUM 4.3 3.5-5.1 CHLORIDE LEVEL 104 98-107 CARBON DIOXIDE LEVEL 29 21-32 CALCIUM LEVEL 8.8 8.5-10.1 AST/SGOT 16 7-37 ALT/SGPT 20 12-78 ALKALINE PHOSPHATASE 48 45-117 BILIRUBIN,TOTAL 0.3 0.2-1.0 TOTAL PROTEIN 7.3 6.4-8.2 ALBUMIN 4.0 3.2-5.2 ALBUMIN/GLOBULIN RATIO 1.2 1.2-2.2 PT & APTT Reviewed date:01/02/2021 15:16:36 Interpretation: Performing Lab:[facility] [address] [facility] [address] , ,[place] [address] PROTHROMBIN TIME 13.0 12.7-14.5 INR 0.94 PARTIAL THROMBOPLASTIN TIME 33.3 25.9-37.0 REASON FOR VISIT Pre-op Dr. Almazan, breast reduction sx 01/08/2021 @ [facility] by Dr. Almazan general anes thesia needs labs & ekg MEDICAL (GENERAL) HISTORY Type Description Date Medical History hx epilepsy since 10 years o ld - Seizure free on Lamotrigine - Follow[facility] with Dr. Drake ([facility] - 2019 - He asked us to take over her prescription since she has been stable for so long Medical History depression/anxiety Medical History 12/2016 - Emergent with subsequent Uterine rupture, subsequent DIC, required multiple transfusions, developed oliguric ATN requiring dialysis Medical History Follows with Dr. Cisneros ([facility] hrology) - REnal function returned to baseline Medical History Excercise induced Vision Dis tubance/Diplopia that started after she went scuba diving in 2016 - Wkup by Neurology, Opthalmology and Neuro Opthalmology unrevealing. Evaluated by Vascular in [place] with CTA in 2019 which was normal Medical History 72 hour [...] No Information FUNCTIONAL STATUS No Information ASSESSMENTS Encounter Date Diagnosis Assessment Notes Treatment Notes Treatm ent Clinical Notes Dec, Encounter for other preprocedural examination (I CD-10 - Z01.818) I discussed the risks vs. benefits of surgery with the patient in generic terms. I feel that she is at low risk for perioperative cardiovascular complications based on RCRI. She knows that there is always some risk with surgery and she has to be comfortable that, for her, the benefits of surgery outweigh the risks in order to proceed. If she has further questions regarding the specifics of the proposed surgical procedure and specific risks, [s/he] should discuss them with the surgeon. EKG today - NSR 70 bpm, Normal EKG I feel that the patient's acute and chronic medical conditions are fully opt imized at the present time. There are no readily alterable factors that could lower the patient's perioperative risk. I have recommended the patient stop all medications as recommended by their surgeon and anesthesia. Dec, Stage 2 chronic kidney disease (ICD-10 - N18.2) H/O oliguric ATN after uterine rupture and acute blood loss - required dialysis Renal function as normalized, but will need to maintain adequate BP and close attention to operative blood loss, Avoid NSAIDs and monitor kidney function Dec, Nonintractable epilepsy with out status epilepticus, unspecified epilepsy type (ICD-10 - G40.909) PLAN OF TREATMENT Treatment Notes Assessment Notes Clinical Notes Encounter for other preprocedural examination I discus sed the risks vs. benefits of surgery with the patient in generic terms. I feel that she is at low risk for perioperative cardiovascular complications based on RCRI. She knows that there is always some risk with surgery and she has to be comfortable that, for her, the benefits of surgery outweigh the risks in order to proceed. If she has further questions regarding the specifics of the proposed surgical procedure and specific risks, [s/he] should discuss them with the surgeon.EKG today - NSR 70 bpm, Normal EKGI feel that the patient's acute and chronic medical conditions are fully optimized at the present time. There are no readily alterable factors that could lower the patient's perioperative risk.I have recommended the patient stop all medications as recommended by their surgeon and anesthesia. Stage 2 chronic kidney disease H/O oligu jasen ATN after uterine rupture and acute blood loss - required dialysisRenal function as normalized, but will need to maintain adequate BP and close attention to operative blood loss,Avoid NSAIDs and monitor kidney function Pending Tests Test Name Order Date ELECTROCARDIOGRAM, COMPLETE EKG 2021-01-02 Next Appt Details Obtain results of 72 hour Holter done at Dr. Caldwell office, prn Reason: Provider Name:Taisha Gibbs, 11-01-22 10:00:00 AM, [address] [place] [address], , [place], [address], Insurance Providers Payer Name Payer Address Payer Phone Insured Name Patient Relati onship to Insured Coverage Start Date Coverage End Date [employer] O [id number] [facility] [place] [facility] [id number] MANDI HUANG [id number]
--- OUTSIDE RECORDS SUMMARY | 2021-01-09 10:00 | CCD ---
Author Author [facility] Organization [facility] Address Unknown Phone Unavailable Care Team Providers Care Expander Machine Operator Name Role Phone Ed Jonna Unavailable PROBLEMS Type Condition ICD9-CM Code WLC32-QU Code Onset Dates Condition S tatus W/U Status Risk SNOMED Code Notes Problem Stage 2 chronic kidney disease N18.2 Active confir med 296723997 Problem Nonintractable epilepsy with out status epilepticus, unspecified epilepsy type G40.909 Active confirmed 273625374 Problem Cervical high risk HPV (human papillomavirus) test positiv e 795.05 Active confirmed 288988764 Problem Mild dysplasia of cervix 622.11 Active confirmed 195368996 Problem Molluscum contagiosum 078.0 Active confirmed 70937813 ALLERGIES No Known Allergies ENCOUNTERS from 1973 to 2021-01-05 Encounter Location Date Provider Diagnosis [id number] [place] [address] 15 Dec, 2020 Jonna Ward IMMUNIZATIONS Vaccine Route Administration [...] Information RESULTS No Results REASON FOR VISIT 72 hour holter MEDICAL (GENERAL) HISTORY Type Description Date Medical History hx epilepsy since 10 years o ld - Seizure free on Lamotrigine - Follows with Dr. Drake (Neurology [facility]) - 2019 - He asked us to take over her prescription since she has been stable for so long Medical History depression/anxiety Medical History 12/2016 - Emergent with subsequent Uterine rupture, subsequent DIC, required multiple transfusions, developed oliguric ATN requiring dialysis Medical History Follows with Dr. Cisneros ([facility] hrology) - REnal function returned to baseline Medical History Excercise induced Vision Dis tubance/Diplopia that started after she went scuba diving in 2015 - Wkup by Neurology, Opthalmology and Neuro Opthalmology unrevealing. Evaluated by Vascular in [place] with CTA in 2018 which was normal [...] Next Appt Details Provider Name:Taisha Gibbs, 20 -- 10:00:00 AM, [address] [place] [address], , [place], [address], Insurance Providers Payer Name Payer Address Payer Phone Insured Name Patient Relati onship to Insured Coverage Start Date Coverage End Date [employer] O [id number] [facility] [place] [address] MANDI CAMILO [id number]
== END 2021-01-07 12:40 | disposition home or self-care (01) ==
LOC: M SDC 06:18 → M MS5PR 06:19 → M SDC 01-07 12:40
PROVIDERS: ADMIT Plastic Surgery Surgery of the Hand; ATTEND Plastic Surgery Surgery of the Hand
DX: N62 Hypertrophy of breast (principal); E88.1 Lipodystrophy, not elsewhere classified; Z79.899 Other long term (current) drug therapy; G40.909 Epilepsy, unspecified, not intractable, without status epilepticus
CPT/HCPCS: 15877; 19318; 88302; 88305; 96365; 96366; 96375; C9290; J0131; J0171; J0690; J1100; J1170; J1580; J2250; J2270; J2370; J2405; J3010

== ENCOUNTER → 2022-01-19 | Outpatient (CLI) | payer BC ==
[~2022-01-19] MED LIST changes: +PERCOCET PO
[2022-01-19 15:15] LABS: APPEARANCE, URINE MANUAL CLEAR (CLEAR); BILIRUBIN, URINE MANUAL NEGATIVE (NEGATIVE); COLOR, URINE MANUAL YELLOW (YELLOW); GLUCOSE, URINE (UA) MANUAL NEGATIVE (NEGATIVE); KETONE, URINE MANUAL NEGATIVE (NEGATIVE); NITRITE, URINE MANUAL NEGATIVE (NEGATIVE); PROTEIN, URINE MANUAL NEGATIVE (NEGATIVE); UROBILINOGEN, URINE MANUAL NORMAL (NORMAL)
[2022-01-19 15:16] LABS: BLOOD URINE MANUAL TRACE (NEGATIVE); LEUKOCYTE ESTERASE, URINE MAN NEGATIVE (NEGATIVE)
[2022-01-19 16:35] LABS: BACTERIA, URINE SMALL AMOUNT; CALCIUM OXALATE CRYSTALS,URINE MOD AMOUNT /hpf; RBC, URINE 0-1 /hpf (0-3); SQUAMOUS EPITHELIAL CELL URINE SMALL AMOUNT /hpf (SMALL AMT); WBC, URINE 0-1 /hpf (0-3)
== END ==
LOC: M PLALAB 09:54
PROVIDERS: ATTEND Specialist
DX: R10.2 Pelvic and perineal pain (principal)

== ENCOUNTER → 2022-02-24 | Outpatient (CLI) | payer BC | LOC: M WHC 06:46 | PROVIDERS: ATTEND Specialist | DX: R10.2 Pelvic and perineal pain (principal); Z90.79 Acquired absence of other genital organ(s) ==

== ENCOUNTER → 2022-03-12 | Outpatient (REF) | payer BC ==
[2022-03-12 17:07] LABS: HEMATOCRIT 45.6 % (36.0-47.0); HEMOGLOBIN 14.9 g/dl (12.0-15.5); MEAN CORPUSCULAR HEMOGLOBIN 29.6 pg (27.0-33.0); MEAN CORPUSCULAR HGB CONC 32.7 g/dl (32.0-36.5); MEAN CORPUSCULAR VOLUME 90.7 fl (80.0-96.0); PLATELET COUNT, AUTOMATED 199 10^3/uL (150-450); RED BLOOD COUNT 5.03 10^6/uL (4.00-5.40); WHITE BLOOD COUNT 6.2 10^3/uL (4.0-10.0)
[2022-03-12 17:35] LABS: ALBUMIN 4.2 G/DL (3.2-5.2); ALKALINE PHOSPHATASE 53 U/L (46-116); ALT/SGPT 35 U/L (7.0-40); AST/SGOT 31 U/L (<34); BILIRUBIN,TOTAL 0.6 MG/DL (0.3-1.2); BLOOD UREA NITROGEN 17 MG/DL (9-23); CALCIUM LEVEL 9.5 MG/DL (8.5-10.1); CARBON DIOXIDE LEVEL 31 MMOL/L (20-31); CHLORIDE LEVEL 100 MMOL/L (98-107); CREATININE FOR GFR 0.81 MG/DL (0.55-1.30); GLOMERULAR FILTRATION RATE > 60.0 (>58); GLUCOSE, FASTING 82 MG/DL (60-100); POTASSIUM SERUM 4.6 MMOL/L (3.5-5.1); SODIUM LEVEL 136 MMOL/L (136-145); TOTAL PROTEIN 7.4 G/DL (5.7-8.2)
[2022-03-12 17:37] LABS: FREE T4 1.21 NG/DL (0.89-1.76); THYROID STIMULATING HORMONE 1.081 uIU/ML (0.55-4.78)
== END ==
LOC: M SFHCADAM 12:02
PROVIDERS: ATTEND Physician Assistant
DX: N18.2 Chronic kidney disease, stage 2 (mild) (principal)

== ENCOUNTER → 2022-08-03 | Outpatient (REF) | payer BC ==
[2022-08-03 14:52] LABS: BLOOD UREA NITROGEN 18 MG/DL (9-23); CALCIUM LEVEL 8.8 MG/DL (8.5-10.1); CARBON DIOXIDE LEVEL 28 MMOL/L (20-31); CHLORIDE LEVEL 103 MMOL/L (98-107); CREATININE FOR GFR 0.85 MG/DL (0.55-1.30); GLOMERULAR FILTRATION RATE > 60.0 (>58); GLUCOSE, FASTING 107 MG/DL (60-100); POTASSIUM SERUM 4.2 MMOL/L (3.5-5.1); SODIUM LEVEL 137 MMOL/L (136-145)
== END ==
LOC: M SFHCADAM 11:07
PROVIDERS: ATTEND Physician Assistant Medical
DX: N18.2 Chronic kidney disease, stage 2 (mild) (principal)

== ENCOUNTER → 2022-08-05 | Outpatient (CLI) | payer BC ==
[~2022-08-05] MED LIST changes: +ISOVUE-370 76% 100ML VIAL ONE
== END ==
LOC: M PLAIMG 08:34
PROVIDERS: ATTEND Physician Assistant
DX: R22.1 Localized swelling, mass and lump, neck (principal)
CPT/HCPCS: 70491; Q9967

== ENCOUNTER → 2023-01-28 | Outpatient (REF) | payer BC ==
[~2023-01-28] MED LIST changes: -ISOVUE-370 76% 100ML VIAL ONE
== END ==
LOC: M SFHCPLAZ 11:41
PROVIDERS: ATTEND Student in an Organized Health Care Education/Training Program
DX: Z53.9 Procedure and treatment not carried out, unspecified reason (principal)

== ENCOUNTER → 2023-03-22 | Outpatient (REF) | payer BC ==
[2023-03-22 13:36] LABS: HEMATOCRIT 43.2 % (36.0-47.0); HEMOGLOBIN 14.1 g/dl (12.0-15.5); MEAN CORPUSCULAR HEMOGLOBIN 29.3 pg (27.0-33.0); MEAN CORPUSCULAR HGB CONC 32.6 g/dl (32.0-36.5); MEAN CORPUSCULAR VOLUME 89.8 fl (80.0-96.0); PLATELET COUNT, AUTOMATED 211 10^3/uL (150-450); RED BLOOD COUNT 4.81 10^6/uL (4.00-5.40); WHITE BLOOD COUNT 4.1 10^3/uL (4.0-10.0)
[2023-03-22 13:40] LABS: ALBUMIN 3.9 G/DL (3.2-5.2); ALKALINE PHOSPHATASE 55 U/L (46-116); ALT/SGPT 27 U/L (7.0-40); AST/SGOT 23 U/L (<34); BILIRUBIN,TOTAL 0.3 MG/DL (0.3-1.2); BLOOD UREA NITROGEN 6 MG/DL (9-23); CALCIUM LEVEL 9.1 MG/DL (8.5-10.1); CARBON DIOXIDE LEVEL 31 MMOL/L (20-31); CHLORIDE LEVEL 103 MMOL/L (98-107); CHOLESTEROL LEVEL 262 MG/DL (<200); CHOLESTEROL RISK RATIO 4.48 (<5); CREATININE FOR GFR 0.76 MG/DL (0.55-1.30); GLOMERULAR FILTRATION RATE > 60.0 (>58); GLUCOSE, FASTING 88 MG/DL (60-100); HDL CHOLESTEROL 58.4 MG/DL (>40); LDL CHOLESTEROL 170.2 MG/DL (<100); NON-HDL-C 203.6 MG/DL; POTASSIUM SERUM 4.3 MMOL/L (3.5-5.1); RHEUMATOID FACTOR QUANT < 3.5 IU/ML (<14); SODIUM LEVEL 137 MMOL/L (136-145); TOTAL PROTEIN 7.4 G/DL (5.7-8.2); TRIGLYCERIDES LEVEL 167 MG/DL (<150); VITAMIN B12 LEVEL 999 PG/ML (211-911)
[2023-03-22 13:41] LABS: TOTAL 25(OH) VITAMIN D 69.8 NG/ML (20.0-100.0)
[2023-03-22 13:42] LABS: FOLATE > 24.0 NG/ML (>5.4)
== END ==
LOC: M SFHCADAM 10:33
PROVIDERS: ATTEND Physician Assistant
DX: M22.40 Chondromalacia patellae, unspecified knee (principal); N18.2 Chronic kidney disease, stage 2 (mild); K21.9 Gastro-esophageal reflux disease without esophagitis; Z13.220 Encounter for screening for lipoid disorders

== ENCOUNTER → 2023-08-05 | Outpatient (REF) | payer BC ==
[2023-08-09 16:12] LABS: HPV APTIMA Not Detected (Not Detected)
== END ==
LOC: M SFHCWAGY 12:49
PROVIDERS: ATTEND Specialist
DX: Z01.419 Encounter for gynecological examination (general) (routine) without abnormal findings (principal); Z77.9 Other contact with and (suspected) exposures hazardous to health
CPT/HCPCS: 87624; G0123

== ENCOUNTER 2025-01-06 14:11 | Emergency (ER) | payer BC ==
[~2025-01-06] VITALS: Ht 162.6 cm; Wt 62.2 kg
[2025-01-06] MEDS: LIDOCAINE 5% PATCH TD ONE (16:41)
[2025-01-06 16:52] LABS: BASO # 0.0 10^3/uL (0.0-0.2); BASO % 0.7 % (0.0-1.0); EOS # 0.1 10^3/uL (0.0-0.5); EOS % 1.7 % (0.0-3.0); LYMPH # 2.3 10^3/uL (1.5-5.0); LYMPH % 42.3 % (24.0-44.0); MONO # 0.5 10^3/uL (0.0-0.8); MONO % 9.0 % (2.0-8.0); NEUTROPHILS # 2.5 10^3/uL (1.5-8.5); NEUTROPHILS % 45.9 % (36.0-66.0); PLATELET COUNT, AUTOMATED 170 10^3/uL (150-450)
[2025-01-06 17:17] LABS: CALCIUM LEVEL 8.4 MG/DL (8.5-10.1); CARBON DIOXIDE LEVEL 32 MMOL/L (20-31); CHLORIDE LEVEL 104 MMOL/L (98-107); CREATININE FOR GFR 0.79 MG/DL (0.55-1.30); GLOMERULAR FILTRATION RATE > 90.0 (>51); POTASSIUM SERUM 4.0 MMOL/L (3.5-5.1); SODIUM LEVEL 142 MMOL/L (136-145)
[2025-01-06 17:27] LABS: INR 0.93
[2025-01-06 17:44] LABS: MAGNESIUM LEVEL 2.0 MG/DL (1.8-2.4)
[2025-01-06 17:57] VITALS: BP 105/72; TEMP 98.1; O2SAT 98
== END 2025-01-06 17:58 | disposition home or self-care (01) ==
LOC: M ED 14:11
DX: M79.604 Pain in right leg (principal); G40.909 Epilepsy, unspecified, not intractable, without status epilepticus; Z79.899 Other long term (current) drug therapy

== ENCOUNTER 2025-01-14 07:00 | Outpatient (RCR) | payer BC | END 2025-01-20 | LOC: M PT 07:00 | PROVIDERS: ATTEND Orthopaedic Surgery | DX: M51.362 Other intervertebral disc degeneration, lumbar region with discogenic back pain and lower extremity pain (principal) ==

== ENCOUNTER 2025-01-28 08:30 | Outpatient (RCR) | payer BC | END 2025-02-20 | LOC: M PT 08:30 | PROVIDERS: ATTEND Orthopaedic Surgery | DX: M51.362 Other intervertebral disc degeneration, lumbar region with discogenic back pain and lower extremity pain (principal) ==

== ENCOUNTER → 2025-01-30 | Outpatient (CLI) | payer BC | LOC: M PLAIMG 06:40 | PROVIDERS: ATTEND Orthopaedic Surgery | DX: M51.362 Other intervertebral disc degeneration, lumbar region with discogenic back pain and lower extremity pain (principal); M51.26 Other intervertebral disc displacement, lumbar region ==